=== PATIENT | female | born 1960 | race Caucasian/White ===

== ENCOUNTER 2016-11-02 14:56 | Inpatient (IN) | payer OTHER ==
[2016-11-07] MEDS ORDERED: SENNOSIDES 17.6 MG/10 ML UDL PO PRN (15:01)
[2016-11-07] MEDS ORDERED: MAGNESIUM HYDROXIDE 30 ML UDCUP PO PRN (15:01)
[2016-11-07] MEDS ORDERED: ALTEPLASE 2 MG VIAL IVP PRN (15:01)
[2016-11-07] MEDS ORDERED: ALBUTEROL SULFATE PO SCH (16:00)
[2016-11-07 16:26] LABS: COLOR YELLOW; LEUKOCYTE ESTERASE,URINE TRACE (NEGATIVE); NITRITE,URINE NEGATIVE (NEGATIVE)
[2016-11-07 16:35] LABS: MUCUS TRACE /lpf (NONE-1+)
[2016-11-07] MEDS ORDERED: VANCOMYCIN 750 MG IV SCH (17:00)
[2016-11-07] MEDS: CARVEDILOL 3.125 MG TAB PO SCH (17:17)
[2016-11-07] MEDS: ACETAMINOPHEN 325 MG TAB PO PRN (17:18)
[2016-11-07] MEDS: BACLOFEN 10 MG TAB PO PRN ×2 (17:18→20:51)
--- NOTE | 2016-11-07 17:31 | GHP ---
[f rep st] HISTORY AND PHYSICAL DATE OF ADMISSION: 11/07/2016 TIME OF EVALUATION: 2:30 p.m. REFERRING FACILITY: [facility]. REFERRING PHYSICIAN: Neurology Service DATE OF ONSET: 10/30/2016. CONSULTING PHYSICIANS: Dr. Monk, Infectious Disease. REHABILITATION DIAGNOSIS: Gait dysfunction, activities of daily living dysfunction status post righ t MCA cerebrovascular accident with left hemiparesis, dysphagia. IMPAIRMENT RATING: Group 1.1, left body involvement, right brain. ETIOLOGIC DIAGNOSIS: Right cerebrovascular accident with left hemiparesis. HISTORY OF PRESENT ILLNESS: The patient is a 56-year-old female who presented to [facility] emergency department on 10/30/2016 with acute onset of slurred speech and left upper and left lower extremity weakness. Her , Luis E, who also served as historian today, states that she was prepa ring dinner and stated that she felt funny and went to sit down. He gave her 2 baby aspirin. She p roceeded to develop more pronounced neurological deficit, and therefore, went to the [facility] emergency department where stroke alert was triggered. She had emergent head CT, which showed is chemic right middle CVA infarction, and she was given tPA. The also states that approximate ly several hours after tPA was administered, her speech began to clear, and she noted improvement in left lower, greater than left upper, extremity strength. She had a series of head CTs which showed acute right MCA infarct with some extension following tPA administration into the right periventric ular white matter and posterior aspect of the basal ganglion. There was no hemorrhagic conversion. She was seen by physical and occupational therapy but had not been doing much ambulation. Her husb and noted that she was standing bedside. He also reports that she was continent of bowel and bladde r prior to transfer. She was seen by Speech Therapy and placed on a regular diet. STUDIES AND LABS IN THE HOSPITAL: Initial head CT performed on 10/30 showed mild scattered foci of the white matter with signal abnormality, considered nonspecific but consistent with microvascular i schemia. Restricted diffusion seen along the posterior aspect of the right basal ganglia ( _ globus pallidus extending superiorly into the right periventricular white matter. No hemorrhage. No hydrocephalus. Repeat head CT was performed on 10/31/2016, which showed a similar and stable ap pearance compared to the previous CT. An additional head CT was performed, which showed decreased a ttenuation of white matter cephalad to the right lateral thalamus corresponding to the area of infar ction seen on previous MRI, unchanged from previous head CT. No acute hemorrhage. She also underwent ultrasound of the left arm which showed a focal thrombus in the cephalic vein in the region of the antecubital fossa. The internal jugular, subclavian and axillary veins appeared p atent. Duplex Doppler color flow 2D ultrasound of the left lower extremity was repeated as normal. A repeat head CT showed continued evolution of the infarct with the right cerebral hemisphere exten ding into the posterior right frontal lobe and basal ganglia with increased low attenuation changes seen. Electrocardiogram showed normal left ventricular size, normal systolic function and wall motion with an ejection fraction of 60% to 65%, diastolic function showed reversal consistent with grade 1, mil d tricuspid insufficiency not significant enough to allow estimation of RV and PA systolic pressures . PRECAUTIONS: She is a fall risk secondary to left hemiparesis. ALLERGIES: Cefaclor, cephalexin, doxycycline, metronidazole, penicillin. ADMISSION MEDICATIONS: 1. Lovenox 30 mg b.i.d., nursing to confirm as this was not on the med list that came with the [facility] ent's medical records on transfer. 2. Atorvastatin 40 mg nightly; baclofen 10 mg q.i.d. p.r.n. left lower extremity muscle spasms. 3. Carvedilol 3.125 mg b.i.d. with meals. 4. Lactobacillus 1 capsule orally. 5. Lisinopril 10 mg daily. 6. Miconazole 2% powder use as directed. 7. Pantoprazole 40 mg EC q.a.m. 8. Sodium chloride 0.9% 100 mg with vancomycin 750 recon solution 750 mg IV q.12 hours. 9. Tamsulosin 0.4 mg extended release 24 hours 0.4 mg daily. 10. Cholecalciferol 1000 unit capsules daily. 11. Multivitamins 1 tablet daily. 12. ProAir 90 mcg actuation aerosol powder 180 mcg inhalation q.4 hours. FAMILY HISTORY: Noncontributory. PSYCHOSOCIAL HISTORY: Apparent 20-year history methamphetamine use. REVIEW OF SYSTEMS: GASTROINTESTINAL: Denies constipation or diarrhea. GENITOURINARY: Denies don turia or dysuria. Denies flank pain. CONSTITUTIONAL: Denies chills. Reports intermittent fever. PULMONARY: Intermittent shortness of breath, on O2 per nasal cannula. SKIN: None per patient rep ort, but she has redness around the sacral region. MUSCULOSKELETAL: Denies arthralgia. PSYCHIATRI C: Denies anxiety or depression. PHYSICAL EXAMINATION: GENERAL: Pleasant, slightly overweight female who appears older than stated age. VITAL SIGNS: On admission, blood pressure 161/120, pulse 88 and regular, respirations 19 per minute. HEENT: Pupils equal, round and reactive to light and accommodation. EOMI. Mucous membran es moist. Airway is patent. NECK: Supple. HEART: Regular rate and rhythm. No murmurs, rubs or gallops. No JVD. LUNGS: Clear to auscultation. No E to A changes. ABDOMEN: Nondistended, soft, nontender, normoactive bowel sounds all 4 quadrants. No hepatosplenomegaly. GENITOURINARY: No Fo prabhu catheter present. No suprapubic tenderness. CARDIOVASCULAR: No lower extremity edema. No rig ht or left calf tenderness. NEUROLOGIC: Alert and oriented x3. Cranial nerves 2 through 12 grossl y intact. Left hemiparesis with left upper extremity weakness greater than left lower extremity wea kness. Most pronounced weakness in left lower extremity is left foot drop where she has a slight eq uinovarus deformity. MUSCULOSKELETAL: She limits functional active range of motion in the left gle nohumeral joint. She can flex the elbow functional position with substitution. She is unable to do rsiflex the left hand and fingers. Left ankle can passively be ranged to 0 degrees. SKIN: Warm al l 4 extremities. Erythema is noted without skin breakdown in the lower sacral and sacrococcygeal re gion. No other skin lesions are noted. ASSESSMENT AND PLAN: 1. Right middle cerebral artery cerebrovascular accident with left hemiparesis with left upper extr emity affected more than left lower extremity and distal muscle groups of both left upper and left l ower extremity affected predominantly. She does have significant left shoulder girdle weakness as w ell. Physical and occupational therapy for optimizing and helping return of motor function pertaini ng to left hemiparesis, balance, core strengthening. 2. Dysphagia. The patient is currently apparently tolerating a regular diet. However, Speech Ther apy to screen for more subtle dysphagia and to assess cognitive deficits. 3. Pain control. The patient currently is not in any pain but per Nursing reports, she was in the process of passing a small kidney stone while over at [facility]. Therefore, will put an ord er in for hydromorphone 2 mg q.2 hours p.r.n. pain greater than a 5. 4. DVT prophylaxis. The patient was previously on Lovenox 30 mg b.i.d. This was confirmed per [facility] staff, as it was not on her transfer medications. Will resume this as well as SCDs at night an d knee-high compression stockings during the day. 5. Gastroesophageal reflux disease. Continue Protonix. 6. Hypertension. Continue lisinopril 10 mg. May give an extra 10 mg this evening if her blood pre ssure remains elevated. She is also taking carvedilol 3.125 mg b.i.d. 7. Left lower extremity muscle spasms. Currently taking 10 mg q.i.d. p.r.n. muscle spasms. Ideall y, this should be reserved for spasticity and perhaps she would do better on low-dose Robaxin. 8. Hypercholesterolemia. Continue atorvastatin 40 mg daily. 9. Thrombophlebitis with recent bacteremia associated with a Staph infection IV line. Monitor ante cubital wound left arm. Continue vancomycin 500 mg b.i.d. 10. Type 2 diabetes. Apparently, this is diet controlled. Will check fingersticks q.shift and mon itor hemoglobin A1c. 11. Asthma. ProAir inhaler p.r.n. shortness of breath. Will continue oxygen 2 L per nasal cannula for now. /[id number]/MODL
[2016-11-07] MEDS ORDERED: ALBUTEROL 200 PUFFS/18 GM MDI IH PRN (18:00)
[2016-11-07] MEDS: [UNRECOGNIZED DRUG - OTHER] TP SCH (20:24)
[2016-11-07] MEDS: MICONAZOLE NITRATE TP SCH (20:24)
[2016-11-07] MEDS: ATORVASTATIN CALCIUM 40 MG TAB PO SCH (20:25)
[2016-11-07] MEDS: [UNRECOGNIZED DRUG - OTHER] IH PRN (20:25)
[2016-11-07] MEDS: ENOXAPARIN 30 MG/0.3 ML SYR SC SCH (20:25)
[2016-11-07] MEDS: VANCOMYCIN 750 MG in D5W 150 ML IV SCH (20:26)
[2016-11-07] MEDS: HYDROmorphONE/DILAUDID 2 MG TAB PO PRN (22:09)
[2016-11-08] MEDS: BACLOFEN 10 MG TAB PO PRN ×3 (02:56→21:01)
[2016-11-08 08:22] LABS: % IMMATURE GRANULYOCYTES 0.7 % (0.0-1.1); ABSOLUTE IMMATURE GRANULOCYTES 0.08 10^3/uL (0.00-0.10); ADD DIFF? NO; ADD MORPH? NO; ADD SCAN? NO; ATYPICAL LYMPHOCYTE FLAG 60 (0-99); FRAGMENT RBC FLAG 10 (0-99); HEMATOCRIT 38.5 % (38.0-47.0); HEMOGLOBIN 12.7 g/dL (12.6-16.3); LEFT SHIFT FLG 0 (0-99); LIPEMIA HEMOLYSIS FLAG 80 (0-99); MEAN CELL HEMOGLOBIN 28.7 pg (27.9-34.1); MEAN CELL VOLUME 86.9 fL (81.5-99.8); MEAN PLATELET VOLUME 10.6 fL (8.7-11.7); PLATELET CLUMPS FLAG 10 (0-99); PLATELET COUNT 284 10^3/uL (150-400); RED BLOOD CELL COUNT 4.43 10^6/uL (4.18-5.33)
[2016-11-08 08:33] LABS: ANION GAP 12 mEq/L (8-16); CARBON DIOXIDE 21 mEq/l (22-31); CHLORIDE 107 mEq/L (97-110); GLOMERULAR FILTRATION RATE 57; GLUCOSE 101 mg/dL (70-100); POTASSIUM 4.6 mEq/L (3.5-5.2); SODIUM 140 mEq/L (134-144)
[2016-11-08] MEDS: CARVEDILOL 3.125 MG TAB PO SCH ×2 (08:34→18:11)
[2016-11-08] MEDS: PANTOPRAZOLE SODIUM 40 MG TAB PO SCH (08:35)
[2016-11-08] MEDS: CHOLECALCIFEROL VIT D3 1,000 UNITS TAB PO SCH (08:35)
[2016-11-08] MEDS: ENOXAPARIN 30 MG/0.3 ML SYR SC SCH ×2 (08:35→21:01)
[2016-11-08] MEDS: TAMSULOSIN HCL 0.4 MG CAP PO SCH (08:35)
[2016-11-08] MEDS: LISINOPRIL 10 MG TAB PO SCH (08:35)
[2016-11-08] MEDS: MULTIVITAMINS 1 EACH TAB PO SCH (08:35)
[2016-11-08] MEDS: VANCOMYCIN 750 MG in D5W 150 ML IV SCH ×2 (08:36→21:01)
[2016-11-08] MEDS: MICONAZOLE NITRATE TP SCH ×2 (08:45→21:03)
[2016-11-08] MEDS: [UNRECOGNIZED DRUG - OTHER] TP SCH ×2 (08:45→21:03)
[2016-11-08] MEDS: [UNRECOGNIZED DRUG - OTHER] IH PRN ×2 (08:46→21:02)
[2016-11-08] MEDS: VILANTEROL PO SCH (08:47)
[2016-11-08] MEDS: FLUTICASONE PO SCH (08:47)
[2016-11-08 12:40] LABS: ALANINE AMINOTRANSFERASE 165 IU/L (9-52); ALBUMIN 3.8 g/dL (3.5-5.0); ALKALINE PHOSPHATASE 91 IU/L (38-126); ASPARTATE AMINOTRANSFERASE 168 IU/L (14-46); BILIRUBIN,TOTAL 0.5 mg/dL (0.1-1.4); BILIRUBIN-CONJUGATED 0.4 mg/dL (0.0-0.5); BILIRUBIN-UNCONJUGATED 0.1 mg/dL (0.0-1.1); TOTAL PROTEIN 6.5 g/dL (6.3-8.2)
[2016-11-08] MEDS: FLUTICASONE/SALMETER 250/50MCG DISKUS IH SCH ×2 (12:55→21:03)
--- NOTE | 2016-11-08 13:12 | PDOREHIP ---
Admission [facility] - Admission - 3 Day Assessment Period Admission Date/Day 1: 11/07/16 Day 2: 11/08/16 Day 3: 11/09/16 - Active Diagnoses Comorbidities and Co-existing Conditions at Admission: 79823. None of the Above - Skin Conditions Unhealed Pressure Ulcer (1 or more/Stage 1 or >)-Admission: 0. No
--- NOTE | 2016-11-08 13:16 | SOAPPROG ---
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 * Left hemiparesis and debility status post CVA. Physical and occupational therapies to optimize mobility and activities of daily living. * Secondary prevention of CVA with blood pressure control on carvedilol and lisinopril and lipid control on atorvastatin, and aspirin. * Dysphagia in the hospital which has improved. Speech therapy evaluation and also to address cognition. * Abnormal liver function tests. Possibly due to atorvastatin. Check hepatitis profile. Repeat LFTs in 3 days. * Nephrolithiasis. Continue tamsulosin and pain control. Observing for resolution of symptoms. If still symptomatic after 4 weeks reimaging would be indicated and possible urology consult. * Urinary frequency/nocturia. UTI seems unlikely white blood cells and trace epithelial cells, however she also has leukocytosis with white blood cell count 11.2. Await urine culture. Continue postvoid residual checks by bladder scan, especially overnight. * Hypertension. Blood pressure is above target for secondary prevention of CVA. Continue to monitor. Unclear indication for beta-aureliano. Consider titration of lisinopril and discontinuation of carvedilol. * Septic thrombophlebitis left antecubital fossa. Currently no signs or symptoms of active infection. Continue vancomycin per orders from Infectious Disease. Follow up with Dr. Thaddeus monk, [facility], after discharge. Continue continue CBC q.week on Mondays and CMP with vancomycin trough twice a week on Mondays and . Fax results to Dr. Coburn at . Expect antibiotic duration 4 weeks or more. * Fatigue. Optimize sleep with attention to nocturia as above. 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 * GERD. Continue pantoprazole. * DM2. HgbA1c was 7.3 in the hospital. No indication for medication at present. D/C BS checks. Manager Product Design to advise patient. * Asthma. Continue inhalers. * Prophylaxis. Continue enoxaparin 30 mg subcutaneous twice daily until mobility improves. Continue SCDs and Josse hose. Continue pantoprazole for GI prophylaxis on enoxaparin plus aspirin. Follow-up: PCP Yesenia Menendez after discharge [phone] Victoria early December [address] Thaddeus Monk week of 11/22/[address] Noel Rodrigez for cardiac event monitor after discharge 11/08/16 13:16 Subjective: Feels sleepy. Reports urinary frequency is interfering with sleep at night. She has flank pain with radiation toward her bladder which he thinks is due to kidney stones. She has passed kidney stones in the past. Pain is sharp and intermittent. She denies fevers or chills, she denies dysuria. No cough or dyspnea. Baclofen has been effective for muscle spasms. Spasms are in no left foot and calf and can happen when her lower leg is touched and moved by staff. Objective: Vital Signs Temp Pulse Resp BP Pulse Ox 36.5 C 72 18 140/92 H 91 L 11/08/16 08:00 11/08/16 08:34 11/08/16 08:00 11/08/16 08:35 11/08/16 08:00 Laboratory Results 11/08/16 06:30 11/08/16 06:30 11/07/16 11/08/16 11/09/16 05:59 05:59 05:59 Intake Total 956 360 Output Total 2550 200 Balance -1594 160 Physical Exam - Physical Exam General Appearance: WD/WN, alert, no apparent distress Respiratory: normal breath sounds, No crackles, No rhonchi, No wheezing Cardiac/Chest: regular rate, rhythm, No edema, No diastolic murmur, No systolic murmur Skin: normal color, warm/dry, other (Minimal id on bandage left antecubital region.) Neuro/Psych: alert, normal mood/affect, oriented x 3, motor weakness (Left forearm and hand) ICD10 Worksheet Patient Problems: Problems Problem Status Onset Cerebrovascular accident (CVA) involving right middle cerebral artery territory Acute Left hemiparesis Acute Nephrolithiasis Acute Septic thrombophlebitis of upper extremity Acute - ICD10 Problem Qualifiers (1) Cerebrovascular accident (CVA) involving right middle cerebral artery territory (2) Left hemiparesis (3) Septic thrombophlebitis of upper extremity (4) Nephrolithiasis
[2016-11-08] MEDS: ASPIRIN EC 81 MG TAB PO SCH (13:52)
--- NOTE | 2016-11-08 17:59 | WOCRNPDOC ---
WOCRN Advanced Assessment Note - Skin Integrity Problem, Advanced Assess Left Arm Dressing Type: Mepilex Border Dressing Description: Clean/Dry, Intact Exudate Amount: Scant Exudate Color: Yellow, Green Exudate Characteristic(s): Cloudy, Purulent Integumentary Issue Intervention: Dressing Changed Avel Wound Tissue: Erythema (minimal avel wound to 0.3 cm circumferentially) Avel Wound Swelling: Moderate Wound Bed Color: Medill, Yellow Wound Bed Constitution: Smooth Tissue (20%), Adhered Slough (80%) Wound Edges: Attached Site Odor: None Site Measurement - Head-to-Toe Length X Width X Depth (cm): 0.4x0.4x0.1 Skin Integrity Problem Comment: Left Ac wound. Small area of adhered slough with a partial thickness opening around it. Cannot palpate depth nor is slough able to be dislodged. Cleaned with ns and applied silvasorb to wound bed. Covered with Allevyn life dressing. Wound care will round again next week.
[2016-11-08] MEDS: ATORVASTATIN CALCIUM 40 MG TAB PO SCH (21:01)
[2016-11-08] MEDS: HYDROmorphONE/DILAUDID 2 MG TAB PO PRN (23:56)
[2016-11-09] MEDS: BACLOFEN 10 MG TAB PO PRN ×3 (03:30→23:13)
[2016-11-09] MEDS: CARVEDILOL 3.125 MG TAB PO SCH ×2 (07:38→17:44)
[2016-11-09] MEDS: VANCOMYCIN 750 MG in D5W 150 ML IV SCH ×2 (07:38→20:03)
[2016-11-09] MEDS: MICONAZOLE NITRATE TP SCH ×2 (09:00→21:31)
[2016-11-09] MEDS: [UNRECOGNIZED DRUG - OTHER] TP SCH ×2 (09:00→21:31)
[2016-11-09] MEDS: ENOXAPARIN 30 MG/0.3 ML SYR SC SCH ×2 (09:00→21:18)
[2016-11-09] MEDS: MULTIVITAMINS 1 EACH TAB PO SCH (09:00)
[2016-11-09] MEDS: TAMSULOSIN HCL 0.4 MG CAP PO SCH (09:00)
[2016-11-09] MEDS: FLUTICASONE/SALMETER 250/50MCG DISKUS IH SCH ×2 (09:00→21:31)
[2016-11-09] MEDS ORDERED: NON-FORMULARY NEW DRUG PO SCH (09:00)
[2016-11-09] MEDS: PANTOPRAZOLE SODIUM 40 MG TAB PO SCH (09:00)
[2016-11-09] MEDS: LISINOPRIL 10 MG TAB PO SCH (09:00)
[2016-11-09] MEDS: ASPIRIN EC 81 MG TAB PO SCH (09:00)
[2016-11-09] MEDS: CHOLECALCIFEROL VIT D3 1,000 UNITS TAB PO SCH (09:00)
[2016-11-09] MEDS: FLUTICASONE PO SCH (09:49)
[2016-11-09] MEDS: VILANTEROL PO SCH (09:49)
[2016-11-09] MEDS ORDERED: LISINOPRIL 10 MG TAB PO ONE (13:53)
[2016-11-09] MEDS ORDERED: NON-FORMULARY NEW DRUG PO PRN (15:01)
--- NOTE | 2016-11-09 15:11 | SOAPPROG ---
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 * Left hemiparesis and debility status post CVA. Physical and occupational therapies to optimize mobility and activities of daily living. * Secondary prevention of CVA with blood pressure control on carvedilol and lisinopril and lipid control on atorvastatin, and aspirin. * Dysphagia in the hospital which has improved. Speech therapy evaluation and also to address cognition. * Abnormal liver function tests. Possibly due to atorvastatin. Check hepatitis profile. Repeat LFTs in 3 days. * Nephrolithiasis. Continue tamsulosin and pain control. Observing for resolution of symptoms. If still symptomatic after 4 weeks reimaging would be indicated and possible urology consult. * Urinary frequency/nocturia. Improved last night 11/08 to 11/09/2016. UTI ruled out with culture less than 2000 CFU per mL. * Leukocytosis with white blood cell count 11.2. Unclear etiology. Not due to UTI. Due for recheck next week. * Hypertension. Blood pressure is above target for secondary prevention of CVA. Continue to monitor. Unclear indication for beta-aureliano. Increase lisinopril from 10 mg q.day to 20 mg q.day starting 11/09/2016. * Septic thrombophlebitis left antecubital fossa. Currently no signs or symptoms of active infection. Continue vancomycin per orders from Infectious Disease. Follow up with Dr. Thaddeus monk, [facility], after discharge. Continue continue CBC q.week on Mondays and CMP with vancomycin trough twice a week on Mondays and . Fax results to Dr. Coburn at [phone]. Expect antibiotic duration 4 weeks or more. * Fatigue. Optimize sleep with attention to nocturia as above. 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 * GERD. Continue pantoprazole. * DM2. HgbA1c was 7.3 in the hospital. No indication for medication at present. D/C BS checks. Oracle Financial Application Developer to advise patient. * Asthma. Continue inhalers. * Prophylaxis. Continue enoxaparin 30 mg subcutaneous twice daily until mobility improves. Continue SCDs and Josse hose. Continue pantoprazole for GI prophylaxis on enoxaparin plus aspirin. Follow-up: PCP Yesenia Czartolomna after discharge [phone] Victoria early December [address] Thaddeus Monk week of 11/22/[address] Noel Rodrigez for cardiac event monitor after discharge [phone] 11/09/16 15:06 Subjective: Feels sleepy today. Says she became sleepy especially after her morning dose of vancomycin. She is participating in therapies however. She complains of a scratchy throat and a cough and asks if she can use her usual home "[employer]." She says she usually gets allergy shots from college advisor and is overdue for them this year. Objective: Vital Signs Temp Pulse Resp BP Pulse Ox 36.5 C 88 17 146/98 H 92 11/09/16 07:50 11/09/16 07:50 11/09/16 07:50 11/09/16 14:57 11/09/16 07:50 Laboratory Results 11/08/16 06:30 11/08/16 06:30 11/08/16 11/09/16 11/10/16 05:59 05:59 05:59 Intake Total 956 1250 300 Output Total 2550 1503 844 Eitnjnr -0367 -231 -250 Physical Exam - Physical Exam General Appearance: WD/WN, alert, no apparent distress Respiratory: normal breath sounds, No crackles, No rhonchi, No wheezing Skin: normal color, warm/dry Neuro/Psych: alert, normal mood/affect, oriented x 3, motor weakness (LUE > LLE) ICD10 Worksheet Patient Problems: Problems Problem Status Onset Cerebrovascular accident (CVA) involving right middle cerebral artery territory Acute Left hemiparesis Acute Nephrolithiasis Acute Septic thrombophlebitis of upper extremity Acute - ICD10 Problem Qualifiers (1) Cerebrovascular accident (CVA) involving right middle cerebral artery territory (2) Left hemiparesis (3) Septic thrombophlebitis of upper extremity (4) Nephrolithiasis
[2016-11-09] MEDS ORDERED: TUSSIN DM PO PRN (15:37)
[2016-11-09] MEDS ORDERED: FLUTICASONE NASAL 120 SPRAYS/16 GM MDI EACHNARE SCH (15:45)
[2016-11-09] MEDS: TUSSIN DM PO PRN (17:47)
[2016-11-09] MEDS: ATORVASTATIN CALCIUM 40 MG TAB PO SCH (21:18)
[2016-11-10] MEDS: ACETAMINOPHEN 325 MG TAB PO PRN (04:23)
[2016-11-10] MEDS: VANCOMYCIN 750 MG in D5W 150 ML IV SCH ×2 (07:52→20:13)
[2016-11-10] MEDS: FLUTICASONE/SALMETER 250/50MCG DISKUS IH SCH ×2 (08:06→21:02)
[2016-11-10] MEDS: ENOXAPARIN 30 MG/0.3 ML SYR SC SCH ×2 (08:09→20:50)
[2016-11-10] MEDS: CARVEDILOL 3.125 MG TAB PO SCH ×2 (08:12→17:57)
[2016-11-10] MEDS: ASPIRIN EC 81 MG TAB PO SCH (08:13)
[2016-11-10] MEDS: FLUTICASONE NASAL 120 SPRAYS/16 GM MDI EACHNARE SCH (08:13)
[2016-11-10] MEDS: CHOLECALCIFEROL VIT D3 1,000 UNITS TAB PO SCH (08:13)
[2016-11-10] MEDS: MICONAZOLE NITRATE TP SCH ×2 (08:14→21:03)
[2016-11-10] MEDS: LISINOPRIL 10 MG TAB PO SCH (08:14)
[2016-11-10] MEDS: [UNRECOGNIZED DRUG - OTHER] TP SCH ×2 (08:14→21:03)
[2016-11-10] MEDS: MULTIVITAMINS 1 EACH TAB PO SCH (08:14)
[2016-11-10] MEDS: PANTOPRAZOLE SODIUM 40 MG TAB PO SCH ×2 (08:15→08:17)
[2016-11-10] MEDS: TAMSULOSIN HCL 0.4 MG CAP PO SCH (08:16)
[2016-11-10] MEDS: BACLOFEN 10 MG TAB PO PRN ×3 (08:17→23:51)
--- NOTE | 2016-11-10 10:40 | SOAPPROG ---
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 * Left hemiparesis and debility status post CVA. Initial functional independence measure 69 on 11/10/2016. 8 feet at the rail with 2 person assist. She requires moderate assistance for bed mobility. She transfers with minimal assist, but is a 2 person assist per nursing especially at night. She is having some return of movement at the left lower extremity but tends to have ankle inversion and may benefit from a brace. Upper extremity dressing requires setup and supervision; lower body dressing is done with moderate assistance. Continue physical and occupational therapies to optimize mobility and activities of daily living. * Dysphagia in the hospital which has improved. Continue speech therapy. Advanced to regular diet with thin liquids. * Cognition. Mild to moderate deficits to attention problem solving and reasoning. Continue speech therapy. * Insomnia and daytime fatigue. Complicated by nocturia and cough. Will address cough and urinary issues before considering initiating a hypnotic. * Urinary frequency/nocturia. Improved last night 11/08 to 11/09/2016. UTI ruled out with culture less than 2000 CFU per mL. * Asthma/allergies/cough. Contributing 2 sleep disturbance. Discussed with her novelty printing machine operator, Dr. Almanza. She was receiving monthly immunotherapy injections for seasonal allergies. She also was on Breo which is equivalent to current Advair, albuterol which she has on a p.r.n. basis, nasal fluticasone which is currently ordered, and an [id number] antihistamine. Will add cetirizine. * Hypertension. Blood pressure is above target for secondary prevention of CVA. Continue to monitor. Unclear indication for beta-aureliano. Increase lisinopril from 10 mg q.day to 20 mg q.day starting 11/09/2016. * Nephrolithiasis. Continue tamsulosin and pain control. Symptoms seem to have resolved. If still symptomatic after 4 weeks reimaging would be indicated and possible urology consult. * Abnormal liver function tests. Possibly due to atorvastatin. Check hepatitis profile. Repeat LFTs in 3 days. * Leukocytosis with white blood cell count 11.2. Unclear etiology. Not due to UTI. Due for recheck next week. * Septic thrombophlebitis left antecubital fossa. Currently no signs or symptoms of active infection. Continue vancomycin per orders from Infectious Disease. Follow up with Dr. Thaddeus monk, [facility], after discharge. Continue continue CBC q.week on Mondays and CMP with vancomycin trough twice a week on Mondays and . Fax results to Dr. Coburn at [phone]. Expect antibiotic duration 4 weeks or more. * Fatigue. Optimize sleep with attention to nocturia as above. 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 Chronic/stable conditions: * Secondary prevention of CVA with blood pressure control on carvedilol and lisinopril and lipid control on atorvastatin, and aspirin. * GERD. Continue pantoprazole. * DM2. HgbA1c was 7.3 in the hospital. No indication for medication at present. D/C BS checks. Wheel Tuner to advise patient. * Prophylaxis. Continue enoxaparin 30 mg subcutaneous twice daily until mobility improves. Continue SCDs and Josse hose. Continue pantoprazole for GI prophylaxis on enoxaparin plus aspirin. Attended staffing, 15 minutes. Discussed with case management, nursing, dietitian, PT, OT, AIRPLANE CABIN ATTENDANT. Patient and her are both living on disability; they sleep in separate rooms. She has been in the basement but she can move to the main level. Discharge date set for 12/01/2016. Follow-up: PCP Yesenia Menendez after discharge [phone] Victoria early December [address] Thaddeus Monk week of 11/22/[address] Noel Rodrigez for cardiac event monitor after discharge 11/10/16 12:16 Subjective: C/O poor sleep last night. Awakened frequently dannie to cough and frequent urination. Says she has an OTC allergy pill. Reports again that she is overdue for "allergy shot" per Dr. Torres. Reports urinary frequency is similar to her experience at home prior to stroke. Also reports L hip/groin pain. Most comfortable with L hip flexed. Reports resolution of flank pain and radiating pain to groin she attributed to kidney stone. Objective: Vital Signs Temp Pulse Resp BP Pulse Ox 36.6 C 80 18 144/95 H 94 11/10/16 07:51 11/10/16 08:12 11/10/16 07:51 11/10/16 08:14 11/10/16 07:51 Microbiology 11/07/16 16:47 Urine Culture - Final Urine,Clean Catch Gram Negative Guillermo Laboratory Results 11/08/16 06:30 11/08/16 06:30 11/09/16 11/10/16 11/11/16 05:59 05:59 05:59 Intake Total 1250 2190 500 Output Total 1999 1999 Balance -750 190 500 - Time Spent With Patient Time Spent With Patient: Greater than 35 minutes floor time today, including more than 50% of time in coordination of care during staffing meeting, and counseling patient. Physical Exam - Physical Exam General Appearance: WD/WN, alert, no apparent distress Respiratory: normal breath sounds, No crackles, No rhonchi, No wheezing Cardiac/Chest: regular rate, rhythm, No edema Extremities: other (Tender over L greater trochanter and L groin) Neuro/Psych: alert, normal mood/affect, oriented x 3, motor weakness (LUE > LLE) ICD10 Worksheet Patient Problems: Problems Problem Status Onset Cerebrovascular accident (CVA) involving right middle cerebral artery territory Acute Left hemiparesis Acute Nephrolithiasis Acute Septic thrombophlebitis of upper extremity Acute - ICD10 Problem Qualifiers (1) Cerebrovascular accident (CVA) involving right middle cerebral artery territory (2) Left hemiparesis (3) Septic thrombophlebitis of upper extremity (4) Nephrolithiasis
[2016-11-10] MEDS: CETIRIZINE 10 MG TAB PO SCH (13:30)
[2016-11-10] MEDS: TUSSIN DM PO PRN (20:50)
[2016-11-10] MEDS: ATORVASTATIN CALCIUM 40 MG TAB PO SCH (20:51)
[2016-11-11 07:52] LABS: ALANINE AMINOTRANSFERASE 109 IU/L (9-52); ALBUMIN 3.5 g/dL (3.5-5.0); ALKALINE PHOSPHATASE 63 IU/L (38-126); ANION GAP 13 mEq/L (8-16); ASPARTATE AMINOTRANSFERASE 43 IU/L (14-46); BILIRUBIN,TOTAL 0.4 mg/dL (0.1-1.4); CALCIUM 9.8 mg/dL (8.5-10.4); CARBON DIOXIDE 22 mEq/l (22-31); CHLORIDE 105 mEq/L (97-110); CREATININE 1.4 mg/dL (0.6-1.0); GLOMERULAR FILTRATION RATE 39; GLUCOSE 134 mg/dL (70-100); POTASSIUM 4.5 mEq/L (3.5-5.2); SODIUM 140 mEq/L (134-144); TOTAL PROTEIN 6.1 g/dL (6.3-8.2)
[2016-11-11] MEDS: ASPIRIN EC 81 MG TAB PO SCH (08:19)
[2016-11-11] MEDS: TAMSULOSIN HCL 0.4 MG CAP PO SCH (08:19)
[2016-11-11] MEDS: PANTOPRAZOLE SODIUM 40 MG TAB PO SCH ×2 (08:19→09:08)
[2016-11-11] MEDS: MULTIVITAMINS 1 EACH TAB PO SCH (08:21)
[2016-11-11] MEDS: CHOLECALCIFEROL VIT D3 1,000 UNITS TAB PO SCH (08:21)
[2016-11-11] MEDS: LISINOPRIL 10 MG TAB PO SCH (08:25)
[2016-11-11] MEDS: CARVEDILOL 3.125 MG TAB PO SCH ×2 (08:26→17:00)
[2016-11-11] MEDS: ENOXAPARIN 30 MG/0.3 ML SYR SC SCH ×2 (08:27→20:19)
[2016-11-11] MEDS: MICONAZOLE NITRATE TP SCH ×2 (08:28→20:19)
[2016-11-11] MEDS: [UNRECOGNIZED DRUG - OTHER] TP SCH ×2 (08:28→20:19)
[2016-11-11] MEDS: FLUTICASONE/SALMETER 250/50MCG DISKUS IH SCH ×2 (08:31→20:20)
[2016-11-11] MEDS: FLUTICASONE NASAL 120 SPRAYS/16 GM MDI EACHNARE SCH (08:31)
[2016-11-11] MEDS: VANCOMYCIN 750 MG in D5W 150 ML IV SCH (08:46)
[2016-11-11] MEDS ORDERED: Herbals/Supplements -Info Only PO SCH (09:00)
[2016-11-11] MEDS: CETIRIZINE 10 MG TAB PO SCH (09:08)
--- NOTE | 2016-11-11 12:56 | SOAPPROG ---
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 * Left hemiparesis and debility status post CVA. Initial functional independence measure 69 on 11/10/2016. Walked 8 feet at the rail with 2 person assist. She requires moderate assistance for bed mobility. She transfers with minimal assist, but is a 2 person assist per nursing especially at night. She is having some return of movement at the left lower extremity but tends to have ankle inversion and may benefit from a brace. Upper extremity dressing requires setup and supervision; lower body dressing is done with moderate assistance. Continue physical and occupational therapies to optimize mobility and activities of daily living. * Dysphagia in the hospital which has improved. Continue speech therapy. Advanced to regular diet with thin liquids. * Cognition. Mild to moderate deficits to attention problem solving and reasoning. Continue speech therapy. * Acute renal insufficiency. D/W ID Dr. Rubio. Advise stopping vancomycin and rechecking labs tomorrow 11/12/16. Will hydrate IV though she does not seen dehydrated; however BUN/CR > 20. * Insomnia and daytime fatigue. Complicated by nocturia and cough. Trial of low-dose oxybutynin 5 mg at HS starting 11/11/16. Continue guaifenesin/DM PRN. * Urinary frequency/nocturia. Persisting. Trial oxybutynin at HS. UTI ruled out with culture less than 2000 CFU per mL. * Asthma/allergies/cough. Contributing to sleep disturbance. Discussed with her bonded strand operator, Dr. Almanza. She was receiving monthly immunotherapy injections for seasonal allergies. She also was on Breo which is equivalent to current Advair, albuterol which she has on a p.r.n. basis, nasal fluticasone which is currently ordered, and an [id number]-[id number] antihistamine. Will add cetirizine. * Hypertension. Blood pressure is above target for secondary prevention of CVA. Continue to monitor. Unclear indication for beta-aureliano. Increase lisinopril from 10 mg q.day to 20 mg q.day starting 11/09/2016. * Nephrolithiasis. Continue tamsulosin and pain control. Symptoms seem to have resolved. Consider renal US chela re GRETCHEN. Will not D/C tamsulosin at present dannie to initiation of oxybutynin to better evaluate effect of oxybutynin. * Abnormal liver function tests. Possibly due to atorvastatin. Hepatitis profile negative. LFTs improving on labs 11/11/2016.. * Leukocytosis with white blood cell count 11.2. Unclear etiology. Not due to UTI. Due for recheck 11/15/16. * Septic thrombophlebitis left antecubital fossa. Currently no signs or symptoms of active infection. D/W Dr. Rubio, ID. Changing care to [place] [facility] service from [facility]. No need for follow-up visit, which would have been difficult due to current requirement of 2 person assist for transfers. Holding of vancomycin due to acute kidney injury. * Fatigue. Optimize sleep with attention to nocturia as above. 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 Chronic/stable conditions: * Secondary prevention of CVA with blood pressure control on carvedilol and lisinopril and lipid control on atorvastatin, and aspirin. * GERD. Continue pantoprazole. * DM2. HgbA1c was 7.3 in the hospital. No indication for medication at present. D/C BS checks. Professor Of Forest Planning to advise patient. * Prophylaxis. Continue enoxaparin 30 mg subcutaneous twice daily until mobility improves. Continue SCDs and Josse hose. Continue pantoprazole for GI prophylaxis on enoxaparin plus aspirin. Patient and her are both living on disability; they sleep in separate rooms. She has been in the basement but she can move to the main level. Discharge date set for 12/01/2016. Follow-up: PCP Yesenia Menendez after discharge [phone] Victoria early December [address] Noel Rodrigez for cardiac event monitor after discharge [phone] 11/11/16 14:14 Subjective: Poor sleep again last night. Sleep was interrupted by frequent urination. Denies flank pain abdominal pain or pelvic pain. No fevers or chills. Continues to have intermittent dry cough, which she attributes to the smell of the alcohol hand basin cleaner. No dyspnea. She reports sensitivity to frequency is related to history of chemical exposure and related lung disease. Otherwise no complaints. Objective: Vital Signs Temp Pulse Resp BP Pulse Ox 36.4 C 84 16 124/70 H 92 11/11/16 06:00 11/11/16 08:26 11/11/16 06:00 11/11/16 08:26 11/11/16 06:00 Laboratory Results 11/08/16 06:30 11/11/16 06:30 11/10/16 11/11/16 11/12/16 05:59 05:59 05:59 Intake Total 2190 1840 340 Output Total 1999 8418 575 Balance 190 290 -235 - Time Spent With Patient Time Spent With Patient: Greater than 35 minutes 4 times a day including coordination of care in discussions with pharmacist and with Infectious Disease physician Dr. Rubio. Physical Exam - Physical Exam General Appearance: WD/WN, alert, no apparent distress Respiratory: normal breath sounds, No crackles, No rhonchi, No wheezing Cardiac/Chest: regular rate, rhythm, No edema, No JVD Extremities: No swelling Neuro/Psych: alert, normal mood/affect, oriented x 3, motor weakness (LUE & LLE) ICD10 Worksheet Patient Problems: Problems Problem Status Onset Cerebrovascular accident (CVA) involving right middle cerebral artery territory Acute Left hemiparesis Acute Septic thrombophlebitis of upper extremity Acute Nephrolithiasis Acute - ICD10 Problem Qualifiers (1) Cerebrovascular accident (CVA) involving right middle cerebral artery territory (2) Left hemiparesis (3) Septic thrombophlebitis of upper extremity (4) Nephrolithiasis
[2016-11-11] MEDS ORDERED: NS 1,000 ML IV SCH (14:15)
[2016-11-11] MEDS: BACLOFEN 10 MG TAB PO PRN ×2 (17:00→22:54)
[2016-11-11] MEDS: ATORVASTATIN CALCIUM 40 MG TAB PO SCH (20:20)
[2016-11-11] MEDS ORDERED: OXYBUTYNIN CHLORIDE 5 MG TAB PO SCH (21:00)
[2016-11-11] MEDS: TUSSIN DM PO PRN (22:54)
[2016-11-12] MEDS: ACETAMINOPHEN 325 MG TAB PO PRN ×2 (00:29→08:24)
[2016-11-12] MEDS ORDERED: VANCOMYCIN 750 MG in D5W 150 ML IV SCH (08:00)
[2016-11-12] MEDS: CARVEDILOL 3.125 MG TAB PO SCH ×2 (08:17→18:42)
[2016-11-12] MEDS: ASPIRIN EC 81 MG TAB PO SCH (08:17)
[2016-11-12] MEDS: CETIRIZINE 10 MG TAB PO SCH (08:20)
[2016-11-12] MEDS: FLUTICASONE NASAL 120 SPRAYS/16 GM MDI EACHNARE SCH (08:21)
[2016-11-12] MEDS: ENOXAPARIN 30 MG/0.3 ML SYR SC SCH ×2 (08:21→20:31)
[2016-11-12] MEDS: CHOLECALCIFEROL VIT D3 1,000 UNITS TAB PO SCH (08:21)
[2016-11-12] MEDS: LISINOPRIL 10 MG TAB PO SCH (08:22)
[2016-11-12] MEDS: FLUTICASONE/SALMETER 250/50MCG DISKUS IH SCH ×2 (08:22→20:31)
[2016-11-12] MEDS: MULTIVITAMINS 1 EACH TAB PO SCH (08:23)
[2016-11-12] MEDS: MICONAZOLE NITRATE TP SCH ×2 (08:23→20:32)
[2016-11-12] MEDS: [UNRECOGNIZED DRUG - OTHER] TP SCH ×2 (08:23→20:32)
[2016-11-12] MEDS: TAMSULOSIN HCL 0.4 MG CAP PO SCH (08:24)
[2016-11-12] MEDS: PANTOPRAZOLE SODIUM 40 MG TAB PO SCH (08:24)
[2016-11-12] MEDS: BACLOFEN 10 MG TAB PO PRN ×3 (08:25→22:50)
[2016-11-12 08:27] LABS: ANION GAP 12 mEq/L (8-16); CALCIUM 8.5 mg/dL (8.5-10.4); CARBON DIOXIDE 19 mEq/l (22-31); CHLORIDE 110 mEq/L (97-110); CREATININE 1.4 mg/dL (0.6-1.0); GLOMERULAR FILTRATION RATE 39; GLUCOSE 119 mg/dL (70-100); SODIUM 141 mEq/L (134-144)
--- NOTE | 2016-11-12 10:14 | SOAPPROG ---
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 * Left hemiparesis and debility status post CVA. Initial functional independence measure 69 on 11/10/2016. Walked 8 feet at the rail with 2 person assist. She requires moderate assistance for bed mobility. She transfers with minimal assist, but is a 2 person assist per nursing especially at night. She is having some return of movement at the left lower extremity but tends to have ankle inversion and may benefit from a brace. Upper extremity dressing requires setup and supervision; lower body dressing is done with moderate assistance. Continue physical and occupational therapies to optimize mobility and activities of daily living. * Cognition. Mild to moderate deficits to attention problem solving and reasoning. Continue speech therapy. * Acute renal insufficiency. D/W ID Dr. Rubio. Vancomycin stopped after AM dose 11/11/16. Labs unchanged 11/12/16 despite 500 cc NS by IV yesterday . Get retroperitoneal ultrasound today to r/o obstruction. * Nephrolithiasis. Continue tamsulosin and pain control. Symptoms seem to have resolved. Consider renal US chela re GRETCHEN. Will not D/C tamsulosin at present dannie to initiation of oxybutynin to better evaluate effect of oxybutynin. Retroperitoneal ultrasound today 11/12/2016. * Urinary frequency/nocturia. Persisting. Trial oxybutynin at HS 11/11/16; may not have been effective due to IV hydration. Increase dose tonight 11/12/2016. UTI ruled out with culture less than 2000 CFU per mL on 11/07/16. Repeat urinalysis today 11/12/2016. * Insomnia and daytime fatigue. Complicated by nocturia and cough. Trial of low-dose oxybutynin 5 mg at HS starting 11/11/16. Continue guaifenesin/DM PRN. * Pain at PICC site. Does not appear infected but will check CBC. * Hypertension. Adequate control. Unclear indication for beta-aureliano. Increased lisinopril from 10 mg q.day to 20 mg q.day starting 11/09/2016. * Leukocytosis with white blood cell count 11.2. Unclear etiology. Not due to UTI. Recheck 11/12/16. * Septic thrombophlebitis left antecubital fossa. Currently no signs or symptoms of active infection. D/W Dr. Rubio, ID. Changing care to [place] [facility] service from [facility]. Holding of vancomycin due to acute kidney injury. ID to manage. Chronic/stable conditions: * Abnormal liver function tests. Possibly due to atorvastatin. Hepatitis profile negative. LFTs improving on labs 11/11/2016. * Asthma/allergies/cough. Contributing to sleep disturbance. Discussed with her auto air conditioning mechanic, Dr. Almanza. She was receiving monthly immunotherapy injections for seasonal allergies. She also was on Breo which is equivalent to current Advair, albuterol which she has on a p.r.n. basis, nasal fluticasone which is currently ordered, and an kjgw-uuz-bjsscii antihistamine. Improved with addition of cetirizine 11/10/2016. * Dysphagia in the hospital which has improved. Continue speech therapy. Advanced to regular diet with thin liquids. * Secondary prevention of CVA with blood pressure control on carvedilol and lisinopril and lipid control on atorvastatin, and aspirin. * GERD. Continue pantoprazole. * DM2. HgbA1c was 7.3 in the hospital. No indication for medication at present. D/C BS checks. Paint Roller [employer]inder to advise patient. * Prophylaxis. Continue enoxaparin 30 mg subcutaneous twice daily until mobility improves. Continue SCDs and Josse hose. Continue pantoprazole for GI prophylaxis on enoxaparin plus aspirin. Patient and her are both living on disability; they sleep in separate rooms. She has been in the basement but she can move to the main level. Discharge date set for 12/01/2016. Follow-up: PCP Yesenia Menendez after discharge [phone] Victoria early December [address] Noel Rodrigez for cardiac event monitor after discharge 11/12/16 09:48 Subjective: Complains of pain at the PICC line insertion site on her right arm. Had frequent urination again last night nursing documents volumes of up to 400 cc with negligible postvoid residual. Otherwise without complaints. No fevers, chills, cough, dyspnea. No flank pain or abdominal pain or groin pain. Objective: Vital Signs Temp Pulse Resp BP Pulse Ox 36.6 C 80 18 120/80 94 11/12/16 06:04 11/12/16 08:17 11/12/16 06:04 11/12/16 08:22 11/12/16 06:04 Laboratory Results 11/08/16 06:30 11/12/16 06:30 11/11/16 11/12/16 11/13/16 05:59 05:59 05:59 Intake Total 1840 1580 Output Total 1550 6415 Balance 290 -1745 Physical Exam - Physical Exam General Appearance: WD/WN, alert, no apparent distress Respiratory: No respiratory distress, No accessory muscle use Cardiac/Chest: edema (trace pretibial B LE) Skin: normal color, warm/dry, other (No erythema or swelling at PICC line site. Insertion site is tender.) Lymphatic: other (No tenderness or palpable cord medial upper right arm or axilla) Neuro/Psych: alert, normal mood/affect, oriented x 3, motor weakness (RUE and LUE) ICD10 Worksheet Patient Problems: Problems Problem Status Onset Cerebrovascular accident (CVA) involving right middle cerebral artery territory Acute Left hemiparesis Acute Nephrolithiasis Acute Septic thrombophlebitis of upper extremity Acute - ICD10 Problem Qualifiers (1) Cerebrovascular accident (CVA) involving right middle cerebral artery territory (2) Left hemiparesis (3) Septic thrombophlebitis of upper extremity (4) Nephrolithiasis
[2016-11-12 12:06] LABS: % IMMATURE GRANULYOCYTES 1.5 % (0.0-1.1); ABSOLUTE IMMATURE GRANULOCYTES 0.21 10^3/uL (0.00-0.10); ADD DIFF? NO; ADD MORPH? NO; ADD SCAN? NO; ATYPICAL LYMPHOCYTE FLAG 10 (0-99); FRAGMENT RBC FLAG 0 (0-99); HEMATOCRIT 36.4 % (38.0-47.0); HEMOGLOBIN 11.8 g/dL (12.6-16.3); LEFT SHIFT FLG 0 (0-99); LIPEMIA HEMOLYSIS FLAG 80 (0-99); MEAN CELL HEMOGLOBIN 28.7 pg (27.9-34.1); MEAN CELL HEMOGLOBIN CONCENTR. 32.4 g/dL (32.4-36.7); MEAN CELL VOLUME 88.6 fL (81.5-99.8); MEAN PLATELET VOLUME 10.3 fL (8.7-11.7); PLATELET CLUMPS FLAG 0 (0-99); PLATELET COUNT 339 10^3/uL (150-400); RED BLOOD CELL COUNT 4.11 10^6/uL (4.18-5.33); RED CELL DISTRIBUTION WIDTH 13.4 % (11.5-15.2)
[2016-11-12] MEDS ORDERED: ceFAZolin 2 GM/DEXTROSE 100 ML IV SCH (16:30)
[2016-11-12 18:20] LABS: COLOR YELLOW; LEUKOCYTE ESTERASE,URINE NEGATIVE (NEGATIVE); NITRITE,URINE NEGATIVE (NEGATIVE)
--- NOTE | 2016-11-12 18:57 | GCON ---
[f rep st] CONSULTATION INFECTIOUS DISEASE CONSULTATION. DATE OF CONSULTATION: 11/12/2016 PHYSICIAN REQUESTING CONSULTATION: Jay Deng MD REASON FOR CONSULTATION: Management of MSSA bacteremia and superficial septic thrombophlebitis, left antecubital with increasing creatinine. HISTORY OF PRESENT ILLNESS: A 56-year-old woman who presented to [facility] Emergency Room 10/30/2016 with acute onset of slurred speech and left upper extremity weakness and found to have a right MCA infarction. Her hospitalization was complicated by superficial septic thrombophlebitis of the cephalic vein associated with MSSA bacteremia. Patient had positive blood cultures on 11/02, 2 sets, and subsequent blood cultures on 11/04 were negative. Patient carried a diagnosis of allergies to penicillin and cephalosporin both giving a rash, and patient was started initially on clindamycin when only thrombophlebitis and cellulitis were obvious but subsequently changed to IV vancomycin 500 mg IV q.12 with a goal trough between 15 and 20. Patient was subsequently transferred to [facility] and IV vancomycin was continued with initial trough on the of 10.9, with a followup trough on 11/11 of 19.5 with associated creatinine of 1.4. Patient also underwent an abdominal pelvis ultrasound today which showed no hydronephrosis but possible presence of calculi. Infectious Disease is consulted to assess appropriate IV antibiotic therapy and management of vancomycin renal toxicity. PAST MEDICAL HISTORY: Gastroesophageal reflux disease, hypertension, hyperlipidemia, type 2 diabetes, and asthma. ALLERGIES: Penicillin and cephalosporins cause a rash. MEDICATIONS: Tylenol, Lipitor, baclofen, Coreg, Zyrtec, vitamin D, Lovenox, Flonase, Dilaudid, lisinopril 20 mg daily. Milk of magnesia as needed. Oxybutynin 10 mg at bedtime, Protonix 40 mg daily, Advair 1 puff twice daily, senna and Flomax 0.4 mg daily. SOCIAL HISTORY: Patient has a remote history of methamphetamine use. She is . She is on disability. She is a former smoker. No alcohol. FAMILY HISTORY: Reviewed and noncontributory. REVIEW OF SYSTEMS: A complete 10-point review of systems was performed and is negative except as mentioned in the HPI. PHYSICAL EXAMINATION: VITAL SIGNS: Blood pressure is 125/70, heart rate 73, respiratory rate 16, saturation 94% on room air, temperature 36.6. GENERAL: This is a pleasant woman who appears older than her stated age, sitting up in a chair. No acute distress. HEENT: Pupils are reactive bilaterally. Oropharynx : She has dentures above and a few remaining teeth below. Moist mucous membranes. No oral ulcerations or exudate. NECK: Supple. No lymphadenopathy. CARDIOVASCULAR: Regular rate and rhythm with a 2/6 systolic murmur. CHEST: Clear to auscultation bilaterally. ABDOMEN: Soft, nontender. EXTREMITIES: No clubbing, cyanosis, or edema. Her left upper extremity she had an obvious palpable thrombosed cephalic vein in her antecubital region with no expressible purulence. No surrounding erythema. Minimal tenderness to palpation. Right upper extremity patient had her PICC line in place. The insertion site appeared okay but it was very tender to palpation. Arm appeared to be mildly swollen relative to the left. NEUROLOGIC: She had an obvious left hemiparesis most prominent in her upper extremities. LABORATORY DATA: Creatinine 1.4. AST 43, ALT 109, total protein 6.1, Vanco trough this morning is 9.8. Hepatitis serologies were negative. White count 14.1, hematocrit 36, platelets of 339. No blood cultures were collected here but urine was sent for culture which is growing 2000 CFU gram-negative rods. Transthoracic echocardiogram performed at an outside hospital showed no evidence of endocarditis and only showed mild tricuspid insufficiency. ASSESSMENT AND PLAN: This is a 56-year-old woman who recently developed an acute right MCA CVA. Her course was complicated by a superficial septic thrombophlebitis with associated MSSA bacteremia with negative blood cultures since November 04. During her course of therapy, she has had increasing vancomycin troughs and an increasing creatinine. Reviewed patient's antibiotic allergies and she did not have anaphylaxis to either penicillin or cephalosporins. 1. MSSA bacteremia and superficial septic thrombophlebitis with resolution of cellulitis on exam today. 2. Right arm swelling, concern with DVT associated with PICC line. 3. Elevated Cr due to vancomycin toxicity 4. Leukocytosis - no new localizing symptoms RECOMMENDATIONS: 1. We obtain a right upper extremity ultrasound. 2. After clarification of allergies, patient is willing to try cephalosporins again; therefore, based on creatinine clearance in the 40s, would dose patient Ancef 2 g IV q.12. 3. Plan IV antibiotics through 12/01/16 4. Discontinue vancomycin 5. Monitor serial Cr Thank you for this consultation. We will continue to follow on a daily basis. /[id number]/MODL MTDD
[2016-11-12] MEDS: ATORVASTATIN CALCIUM 40 MG TAB PO SCH (20:31)
[2016-11-12] MEDS: OXYBUTYNIN CHLORIDE 5 MG TAB PO SCH (20:31)
[2016-11-12] MEDS: TUSSIN DM PO PRN (22:50)
[2016-11-13] MEDS: BACLOFEN 10 MG TAB PO PRN ×3 (06:47→20:49)
[2016-11-13] MEDS ORDERED: ceFAZolin 2 GM/DEXTROSE 100 ML IV SCH (09:00)
[2016-11-13] MEDS: ceFAZolin 2 GM/DEXTROSE 100 ML IV SCH ×2 (09:44→20:37)
[2016-11-13] MEDS: FLUTICASONE NASAL 120 SPRAYS/16 GM MDI EACHNARE SCH (09:50)
[2016-11-13] MEDS: FLUTICASONE/SALMETER 250/50MCG DISKUS IH SCH ×2 (09:51→20:38)
[2016-11-13] MEDS: ACETAMINOPHEN 325 MG TAB PO PRN ×2 (09:51→14:42)
[2016-11-13] MEDS: ASPIRIN EC 81 MG TAB PO SCH (09:52)
[2016-11-13] MEDS: CARVEDILOL 3.125 MG TAB PO SCH ×2 (09:53→17:37)
[2016-11-13] MEDS: ENOXAPARIN 30 MG/0.3 ML SYR SC SCH ×2 (09:54→20:38)
[2016-11-13] MEDS: LISINOPRIL 10 MG TAB PO SCH (09:54)
[2016-11-13] MEDS: CETIRIZINE 10 MG TAB PO SCH (09:54)
[2016-11-13] MEDS: CHOLECALCIFEROL VIT D3 1,000 UNITS TAB PO SCH (09:54)
[2016-11-13] MEDS: PANTOPRAZOLE SODIUM 40 MG TAB PO SCH (09:56)
[2016-11-13] MEDS: TAMSULOSIN HCL 0.4 MG CAP PO SCH (09:56)
[2016-11-13] MEDS: MULTIVITAMINS 1 EACH TAB PO SCH (09:56)
[2016-11-13] MEDS: [UNRECOGNIZED DRUG - OTHER] TP SCH ×2 (09:58→20:38)
[2016-11-13] MEDS: MICONAZOLE NITRATE TP SCH ×2 (09:58→20:38)
[2016-11-13 10:31] LABS: ANION GAP 14 mEq/L (8-16); CALCIUM 9.2 mg/dL (8.5-10.4); CARBON DIOXIDE 19 mEq/l (22-31); CHLORIDE 109 mEq/L (97-110); CREATININE 1.3 mg/dL (0.6-1.0); GLOMERULAR FILTRATION RATE 42; GLUCOSE 136 mg/dL (70-100); POTASSIUM 4.3 mEq/L (3.5-5.2); SODIUM 142 mEq/L (134-144)
--- NOTE | 2016-11-13 12:06 | SOAPPROG ---
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 Initial functional independence measure 69 on 11/10/2016. Walked 8 feet at the rail with 2 person assist. She requires moderate assistance for bed mobility. She transfers with minimal assist, but is a 2 person assist per nursing especially at night. She is having some return of movement at the left lower extremity but tends to have ankle inversion and may benefit from a brace. Upper extremity dressing requires setup and supervision; lower body dressing is done with moderate assistance. Continue physical and occupational therapies to optimize mobility and activities of daily living. * Cognition. Mild to moderate deficits to attention problem solving and reasoning. Continue speech therapy. * Acute Kidney Injury. Non-oliguric, potential etiologies include AIN Vanco toxicity vs. hypovolemia in setting of infxn, exacerbated by concomitant ACEi use - off Vanco, BEBE w/o hydro - repeat Cr/BUN today downtrending w/ good UOP - hold ACEi until resolved, hold on IVF since she is maintaining good intake , repeat Cr tomorrow * Nephrolithiasis. Continue tamsulosin and pain control. Symptoms seem to have resolved. Small stone on US, no e/o 4mm stone mentioned at [facility] - suspect she has passed the larger stone - cont tamsulosin, administer in AM to avoid exacerbating nocturia * Nocturia. Chronic issue per patient, w/o notable frequency during day, UA w/ o UTI - suspect this is 2/2 evening intake of fluid, and I've counseled patient to not drink fluids after 7 p.m. - she is concerned about dry-mouth, and I've advised her to swish and spit after 7 p.m. - cont oxybutnin, as this may help alleviate any concomitant urge sensation HS - gauge effect * Insomnia and daytime fatigue. Complicated by nocturia and cough. Trial of low-dose oxybutynin 10 mg at HS started 11/11/16. Continue guaifenesin/DM PRN. * Pain at PICC site. Does not appear infected, no DVT on US * Hypertension. Adequate control. Unclear indication for beta-aureliano. Holding ACEi until renal fxn improves, may need uptitration of bblocker or adjustment to amlodipine if her daytime fatigue continues * Leukocytosis, potentially 2/2 recent thrombophlebitis, does have LLE edema - will order outside records from [facility] since patient believes LE US already recent performed for LE edema - if no LE US, will order * Septic thrombophlebitis left antecubital fossa. Currently no signs or symptoms of active infection. Reviewed Dr. Tobar's consultation 11/12 - cont renally dosed Ancef 2g q12 Chronic/stable conditions: * Abnormal liver function tests. Possibly due to atorvastatin. Hepatitis profile negative. LFTs improving on labs 11/11/2016. - repeating tomorrow * Asthma/allergies/cough. Contributing to sleep disturbance. Discussed with her piecer up, Dr. Almanza. She was receiving monthly immunotherapy injections for seasonal allergies. She also was on Breo which is equivalent to current Advair, albuterol which she has on a p.r.n. basis, nasal fluticasone which is currently ordered, and an ebjy-rvr-rrflboe antihistamine. Improved with addition of cetirizine 11/10/2016. * Dysphagia in the hospital which has improved. Continue speech therapy. Advanced to regular diet with thin liquids. * Secondary prevention of CVA with blood pressure control on carvedilol and lisinopril and lipid control on atorvastatin, and aspirin. * GERD. Continue pantoprazole. * DM2. HgbA1c was 7.3 in the hospital. No indication for medication at present. D/C BS checks. Rubber Stamp Dies Inspector to advise patient. - would recommend she initiate metformin 500mg bid as outpt once GRETCHEN completely resolved * Prophylaxis. Continue enoxaparin 30 mg subcutaneous twice daily until mobility improves. Continue SCDs and Josse hose. Continue pantoprazole for GI prophylaxis on enoxaparin plus aspirin. Patient and her are both living on disability; they sleep in separate rooms. She has been in the basement but she can move to the main level. Discharge date set for 12/01/2016. Follow-up: PCP Yesenia Menendez after discharge [phone] Victoria early December [address] Noel Rodrigez for cardiac event monitor after discharge Subjective: patient reports fatigue s/p working w/ therapy; moving bowels; ongoing nocturia Objective: Vital Signs Temp Pulse Resp BP Pulse Ox 36.6 C 60 18 120/60 93 11/13/16 06:27 11/13/16 09:53 11/13/16 06:27 11/13/16 09:54 11/13/16 06:27 Laboratory Results 11/12/16 10:40 11/13/16 09:15 11/12/16 11/13/16 11/14/16 05:59 05:59 05:59 Intake Total 1580 860 240 Output Total 3325 2550 400 Balance -0876 -1690 -160 Physical Exam - Physical Exam General Appearance: alert, no apparent distress, obese, No anxiety Respiratory: chest non-tender, lungs clear, normal breath sounds, No respiratory distress Cardiac/Chest: normal peripheral pulses, regular rate, rhythm, edema (1+ LLE), No irregularly irregular Abdomen: normal bowel sounds, non-tender, soft, No distended Neuro/Psych: oriented x 3, other (motor 2/5 LUE and 4/5 LLE, subjective paresthesia LUE, CN II-XII intact and tested) ICD10 Worksheet Patient Problems: Problems Problem Status Onset Cerebrovascular accident (CVA) involving right middle cerebral artery territory Acute Left hemiparesis Acute Nephrolithiasis Acute Septic thrombophlebitis of upper extremity Acute
--- NOTE | 2016-11-13 14:44 | PCMIDPN ---
Assessment/Plan: # MSSA bacteremia and superficial septic thrombophlebitis cephalic vein L arm, changed to cefazolin from vancomycin yesterday after review of allergies and is tolerating well without evidence rash or itching. Blood cx cleared at OSH >IV antibiotics through 12/01 >Remove PICC line at DC >Weekly CBC, CMP, Next CBC will be tuesday >If Cr improves may need to adjust cefazolin dose but continue at cefazolin 2gm IV q12 >ID to see weekly # ARF - secondary to vancomycin, Cr improving today. Renal US without hydro >check Cr tomorrow # pain RUE assoc w PICC: DVT study negative # leukocytosis: no localizing symptoms: no diarrhea, dysuria; no evidence active infection L anticub; AF >if persists on Tuesday, could consider checking blood cx to eval for PICC Line infection Subjective: patient tearful because LUE spasm Objective: Vital Signs Temp Pulse Resp BP Pulse Ox 36.6 C 60 18 120/60 93 11/13/16 06:27 11/13/16 09:53 11/13/16 06:27 11/13/16 09:54 11/13/16 06:27 Laboratory Results 11/12/16 10:40 11/13/16 09:15 11/12/16 11/13/16 11/14/16 05:59 05:59 05:59 Intake Total 1580 860 240 Output Total 3325 2550 550 Balance -4875 -5860 -310 - Physical Exam General Appearance: alert, other (tearful but no resp distress) EENT: other (dentures, MMM), No thrush Respiratory: No accessory muscle use Neck: supple Extremities: other (L anticub with minimal inflammation) Abdomen: non-tender, soft Neuro/Psych: alert, oriented x 3, motor weakness (LUE), other (tearful) - Line/s LUE PICC Lines: No drainage, No erythema ICD10 Worksheet Patient Problems: Problems Problem Status Onset Cerebrovascular accident (CVA) involving right middle cerebral artery territory Acute Left hemiparesis Acute Nephrolithiasis Acute Septic thrombophlebitis of upper extremity Acute
[2016-11-13] MEDS: traZODone 50 MG TAB PO SCH (19:18)
[2016-11-13] MEDS: OXYBUTYNIN CHLORIDE 5 MG TAB PO SCH (20:37)
[2016-11-13] MEDS: ATORVASTATIN CALCIUM 40 MG TAB PO SCH (20:37)
[2016-11-14] MEDS: BACLOFEN 10 MG TAB PO PRN ×3 (03:53→13:49)
[2016-11-14] MEDS: ceFAZolin 2 GM/DEXTROSE 100 ML IV SCH ×2 (07:48→20:08)
[2016-11-14] MEDS: FLUTICASONE/SALMETER 250/50MCG DISKUS IH SCH ×2 (09:13→20:09)
[2016-11-14] MEDS: FLUTICASONE NASAL 120 SPRAYS/16 GM MDI EACHNARE SCH (09:14)
[2016-11-14] MEDS: CARVEDILOL 3.125 MG TAB PO SCH ×2 (09:15→17:48)
[2016-11-14] MEDS: ASPIRIN EC 81 MG TAB PO SCH (09:19)
[2016-11-14] MEDS: CETIRIZINE 10 MG TAB PO SCH (09:19)
[2016-11-14] MEDS: [UNRECOGNIZED DRUG - OTHER] TP SCH ×2 (09:20→20:09)
[2016-11-14] MEDS: MICONAZOLE NITRATE TP SCH ×2 (09:20→20:09)
[2016-11-14] MEDS: ENOXAPARIN 30 MG/0.3 ML SYR SC SCH ×2 (09:20→20:08)
[2016-11-14] MEDS: CHOLECALCIFEROL VIT D3 1,000 UNITS TAB PO SCH (09:20)
[2016-11-14] MEDS: MULTIVITAMINS 1 EACH TAB PO SCH (09:20)
[2016-11-14] MEDS: PANTOPRAZOLE SODIUM 40 MG TAB PO SCH (09:21)
[2016-11-14] MEDS: TAMSULOSIN HCL 0.4 MG CAP PO SCH (09:21)
[2016-11-14 09:44] LABS: ALANINE AMINOTRANSFERASE 54 IU/L (9-52); ALBUMIN 3.5 g/dL (3.5-5.0); ALKALINE PHOSPHATASE 56 IU/L (38-126); ANION GAP 11 mEq/L (8-16); ASPARTATE AMINOTRANSFERASE 26 IU/L (14-46); BILIRUBIN,TOTAL 0.3 mg/dL (0.1-1.4); CALCIUM 9.6 mg/dL (8.5-10.4); CARBON DIOXIDE 22 mEq/l (22-31); CHLORIDE 108 mEq/L (97-110); CREATININE 1.4 mg/dL (0.6-1.0); GLOMERULAR FILTRATION RATE 39; GLUCOSE 108 mg/dL (70-100); POTASSIUM 4.4 mEq/L (3.5-5.2); SODIUM 141 mEq/L (134-144); TOTAL PROTEIN 5.9 g/dL (6.3-8.2)
[2016-11-14] MEDS ORDERED: NS 1,000 ML IV SCH (12:00)
--- NOTE | 2016-11-14 13:34 | SOAPPROG ---
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 Initial functional independence measure 69 on 11/10/2016. Walked 8 feet at the rail with 2 person assist. She requires moderate assistance for bed mobility. She transfers with minimal assist, but is a 2 person assist per nursing especially at night. She is having some return of movement at the left lower extremity but tends to have ankle inversion and may benefit from a brace. Upper extremity dressing requires setup and supervision; lower body dressing is done with moderate assistance. Continue physical and occupational therapies to optimize mobility and activities of daily living. - Isauro/ASO brace for LLE ordered today per PT recs * Cognition. Mild to moderate deficits to attention problem solving and reasoning. Continue speech therapy. - suspect that some of her slowed reaction and fatigue is 2/2 methamphetamine withdraw, as RN was able to gather that patient has been chewing meth kleenex's for past 20 yrs (unbeknownst to her or family), and the fatigue she is experiencing here is likely indicative of withdraw from the meth * Acute Kidney Injury. Non-oliguric, potential etiologies include AIN Vanco toxicity vs. hypovolemia in setting of infxn, exacerbated by concomitant ACEi use - off Vanco, BEBE w/o hydro - repeat Cr/BUN today demonstrating persistently elevated Cr (1.4) w/ good UOP (2L/24hrs), suspect this was AIN/ATN and her renal recovery will slowly improve over time - hold ACEi until resolved - give 1L NS today given potential for hypovolemia and check FeNa - repeat Cr in AM * Nephrolithiasis. Continue tamsulosin and pain control. Symptoms seem to have resolved. Small stone on US, no e/o 4mm stone mentioned at [facility] - suspect she has passed the larger stone - cont tamsulosin, administer in AM to avoid exacerbating nocturia * Nocturia. Chronic issue per patient, w/o notable frequency during day, UA w/ o UTI - suspect this is 2/2 evening intake of fluid, and I've counseled patient to not drink fluids after 7 p.m. - she is concerned about dry-mouth, and I've advised her to swish and spit after 7 p.m. - cont oxybutnin, as this may help alleviate any concomitant urge sensation HS - only 3 episodes o/n * Insomnia. Responded well to trazodone 50 HS, continue * PICC site. Does not appear infected, no DVT on US * Hypertension. Adequate control. Unclear indication for beta-aureliano. Holding ACEi until renal fxn improves, may need uptitration of bblocker if GRETCHEN persists * Leukocytosis, potentially 2/2 recent thrombophlebitis, ID aware, repeat CBC in AM * Edema. LLE, 2/2 immobility, had a LLE US at [facility] which was neg for DVT, no indication to repeat * Septic thrombophlebitis left antecubital fossa. Currently no signs or symptoms of active infection. Reviewed Dr. Tobar's consultation 11/12 - cont renally dosed Ancef 2g q12 Chronic/stable conditions: * Abnormal liver function tests. Possibly due to atorvastatin. Hepatitis profile negative. LFTs improving on labs 11/11/2016. - repeating tomorrow * Asthma/allergies/cough. Contributing to sleep disturbance. Discussed with her radius corner machine operator, Dr. Almanza. She was receiving monthly immunotherapy injections for seasonal allergies. She also was on Breo which is equivalent to current Advair, albuterol which she has on a p.r.n. basis, nasal fluticasone which is currently ordered, and an [id number] antihistamine. Improved with addition of cetirizine 11/10/2016. * Dysphagia in the hospital which has improved. Continue speech therapy. Advanced to regular diet with thin liquids. * Secondary prevention of CVA with blood pressure control on carvedilol and lipid control on atorvastatin, and aspirin. * GERD. Continue pantoprazole. * DM2. HgbA1c was 7.3 in the hospital. No indication for medication at present. D/C BS checks. Relocation Manager to advise patient. - would recommend she initiate metformin 500mg bid as outpt once GRETCHEN completely resolved * Prophylaxis. Continue enoxaparin 30 mg subcutaneous twice daily until mobility improves. Continue SCDs and Josse hose. Continue pantoprazole for GI prophylaxis on enoxaparin plus aspirin. Patient and her are both living on disability; they sleep in separate rooms. She has been in the basement but she can move to the main level. Discharge date set for 12/01/2016. Follow-up: PCP Yesenia Menendez after discharge [phone] Victoria early December [address] Noel Rodrigez for cardiac event monitor after discharge 11/14/16 13:25 Subjective: patient reports charles worked well last night, moving bowels, only 3 episodes of nocturia, eating well Objective: Vital Signs Temp Pulse Resp BP Pulse Ox 36.6 C 60 16 138/80 H 92 11/14/16 06:41 11/14/16 09:15 11/14/16 06:41 11/14/16 09:15 11/14/16 06:41 Laboratory Results 11/12/16 10:40 11/14/16 06:05 11/13/16 11/14/16 11/15/16 05:59 05:59 05:59 Intake Total 860 730 360 Output Total 2550 4745 Balance -1690 -1349 360 Physical Exam - Physical Exam General Appearance: alert, no apparent distress, obese, No obtunded, No anxiety Respiratory: lungs clear, No crackles, No rales, No wheezing Cardiac/Chest: regular rate, rhythm, edema (1+ LLE), No tachycardia, No systolic murmur, No irregularly irregular Abdomen: normal bowel sounds, non-tender, soft, No distended, No guarding Skin: other (no erythema at RUE PICC site, mild induration remains present at LUE antecubital fossa), No diaphoresis, No rash Neuro/Psych: normal mood/affect, oriented x 3, other (CN II-XII intact/tested, LUE 3/5 motor, LLE 4/5 motor w/ hemiparesthesia, cooperative and following commands) ICD10 Worksheet Patient Problems: Problems Problem Status Onset Cerebrovascular accident (CVA) involving right middle cerebral artery territory Acute Left hemiparesis Acute Septic thrombophlebitis of upper extremity Acute Nephrolithiasis Acute
[2016-11-14] MEDS: ATORVASTATIN CALCIUM 40 MG TAB PO SCH (20:08)
[2016-11-14] MEDS: traZODone 50 MG TAB PO SCH (20:08)
[2016-11-14] MEDS: BACLOFEN 10 MG TAB PO SCH (20:08)
[2016-11-14] MEDS: OXYBUTYNIN CHLORIDE 5 MG TAB PO SCH (20:08)
[2016-11-15] MEDS: BACLOFEN 10 MG TAB PO PRN ×2 (03:30→14:12)
[2016-11-15 07:38] LABS: % IMMATURE GRANULYOCYTES 0.5 % (0.0-1.1); ABSOLUTE IMMATURE GRANULOCYTES 0.07 10^3/uL (0.00-0.10); ADD DIFF? NO; ADD MORPH? NO; ADD SCAN? NO; ATYPICAL LYMPHOCYTE FLAG 0 (0-99); FRAGMENT RBC FLAG 0 (0-99); HEMATOCRIT 34.3 % (38.0-47.0); HEMOGLOBIN 11.3 g/dL (12.6-16.3); LEFT SHIFT FLG 0 (0-99); LIPEMIA HEMOLYSIS FLAG 80 (0-99); MEAN CELL HEMOGLOBIN 29.1 pg (27.9-34.1); MEAN CELL HEMOGLOBIN CONCENTR. 32.9 g/dL (32.4-36.7); MEAN CELL VOLUME 88.4 fL (81.5-99.8); MEAN PLATELET VOLUME 9.8 fL (8.7-11.7); PLATELET CLUMPS FLAG 10 (0-99); PLATELET COUNT 322 10^3/uL (150-400); RED BLOOD CELL COUNT 3.88 10^6/uL (4.18-5.33); RED CELL DISTRIBUTION WIDTH 13.7 % (11.5-15.2)
[2016-11-15 07:49] LABS: ALANINE AMINOTRANSFERASE 43 IU/L (9-52); ALBUMIN 3.6 g/dL (3.5-5.0); ALKALINE PHOSPHATASE 54 IU/L (38-126); ANION GAP 13 mEq/L (8-16); ASPARTATE AMINOTRANSFERASE 28 IU/L (14-46); BILIRUBIN,TOTAL 0.4 mg/dL (0.1-1.4); CALCIUM 9.8 mg/dL (8.5-10.4); CARBON DIOXIDE 20 mEq/l (22-31); CHLORIDE 109 mEq/L (97-110); CREATININE 1.3 mg/dL (0.6-1.0); GLOMERULAR FILTRATION RATE 42; GLUCOSE 102 mg/dL (70-100); POTASSIUM 4.5 mEq/L (3.5-5.2); SODIUM 142 mEq/L (134-144); TOTAL PROTEIN 6.1 g/dL (6.3-8.2)
[2016-11-15] MEDS: ceFAZolin 2 GM/DEXTROSE 100 ML IV SCH ×2 (08:08→20:03)
[2016-11-15] MEDS: CARVEDILOL 3.125 MG TAB PO SCH ×2 (08:18→18:11)
[2016-11-15] MEDS: BACLOFEN 10 MG TAB PO SCH ×2 (08:18→20:04)
[2016-11-15] MEDS: ASPIRIN EC 81 MG TAB PO SCH (08:18)
[2016-11-15] MEDS: ENOXAPARIN 30 MG/0.3 ML SYR SC SCH ×2 (08:21→20:04)
[2016-11-15] MEDS: CETIRIZINE 10 MG TAB PO SCH (08:21)
[2016-11-15] MEDS: FLUTICASONE NASAL 120 SPRAYS/16 GM MDI EACHNARE SCH (08:21)
[2016-11-15] MEDS: CHOLECALCIFEROL VIT D3 1,000 UNITS TAB PO SCH (08:21)
[2016-11-15] MEDS: FLUTICASONE/SALMETER 250/50MCG DISKUS IH SCH ×2 (08:22→20:04)
[2016-11-15] MEDS: [UNRECOGNIZED DRUG - OTHER] TP SCH ×2 (08:23→19:21)
[2016-11-15] MEDS: MULTIVITAMINS 1 EACH TAB PO SCH (08:23)
[2016-11-15] MEDS: MICONAZOLE NITRATE TP SCH ×2 (08:23→19:21)
[2016-11-15] MEDS: PANTOPRAZOLE SODIUM 40 MG TAB PO SCH (08:24)
[2016-11-15] MEDS: TAMSULOSIN HCL 0.4 MG CAP PO SCH (08:24)
[2016-11-15] MEDS: [UNRECOGNIZED DRUG - OTHER] IH PRN (08:32)
--- NOTE | 2016-11-15 13:47 | SOAPPROG ---
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 * Left hemiparesis and debility status post CVA. Initial functional independence measure 69 on 11/10/2016. Walked 8 feet at the rail with 2 person assist. She requires moderate assistance for bed mobility. She transfers with minimal assist, but is a 2 person assist per nursing especially at night. She is having some return of movement at the left lower extremity but tends to have ankle inversion and may benefit from a brace. Upper extremity dressing requires setup and supervision; lower body dressing is done with moderate assistance. Continue physical and occupational therapies to optimize mobility and activities of daily living. * Cognition. Mild to moderate deficits to attention problem solving and reasoning. Continue speech therapy. * Acute renal insufficiency. No obstruction on retroperitoneal ultrasound. Little improvement after hydration. Possibly due to vancomycin. Possibly due to AIN/ATN with gradual recovery. ABBI inhibitor held. Recheck 11/18/2016. * Nephrolithiasis. Continue tamsulosin and pain control. Symptoms seem to have resolved. She has likely passed the 4 mm stone which was seen on abdominal CT in the hospital. * Urinary frequency/nocturia. She reports this is baseline for her. Will discontinue oxybutynin as it has not helped. * Insomnia and daytime fatigue. Due to history of methamphetamine? * Pain at PICC site. Ultrasound was negative for thrombus. Clinically not consistent with infection. Elevated white blood cell count; further evaluation per Infectious Disease. * Hypertension. Adequate control on carvedilol low dose, with lisinopril held. Continue to monitor. * Leukocytosis with white blood cell count 11.2. Unclear etiology. Not due to UTI or PICC site infection. Further evaluation per Infectious Disease. * Septic thrombophlebitis left antecubital fossa. Currently no signs or symptoms of active infection. Continue cefazolin. Further management per Infectious Disease.. Chronic/stable conditions: * Abnormal liver function tests. Possibly due to atorvastatin. Hepatitis profile negative. LFTs resolved 11/15/2016.. * Asthma/allergies/cough. Contributing to sleep disturbance. Discussed with her java developer consultant, Dr. Almanza. She was receiving monthly immunotherapy injections for seasonal allergies. She also was on Breo which is equivalent to current Advair, albuterol which she has on a p.r.n. basis, nasal fluticasone which is currently ordered, and an iolo-[id number]-hgacgfk antihistamine. Improved with addition of cetirizine 11/10/2016. * Dysphagia in the hospital which has improved. Continue speech therapy. Advanced to regular diet with thin liquids. * Secondary prevention of CVA with blood pressure control on carvedilol and lisinopril and lipid control on atorvastatin, and aspirin. * GERD. Continue pantoprazole. * DM2. HgbA1c was 7.3 in the hospital. No indication for medication at present. D/C BS checks. Insurance Claims Processor to advise patient. * Prophylaxis. Continue enoxaparin 30 mg subcutaneous twice daily until mobility improves. Continue SCDs and Josse hose. Continue pantoprazole for GI prophylaxis on enoxaparin plus aspirin. Patient and her are both living on disability; they sleep in separate rooms. She has been in the basement but she can move to the main level. Discharge date set for 12/01/2016. Follow-up: PCP Yesenia Menendez after discharge [phone] Victoria early December [address] Noel Rodrigez for cardiac event monitor after discharge [phone] 11/15/16 13:49 Subjective: No complaints. Says she slept better on the sleeping medicine that was prescribed over the weekend. There has been no change in her nocturia. She reports that it is about the same as baseline prior to her stroke. No fevers, chills, cough, dyspnea. No rash or other adverse effect of antibiotics noted. Objective: Vital Signs Temp Pulse Resp BP Pulse Ox 36.7 C 86 16 132/88 H 95 11/15/16 08:18 11/15/16 08:18 11/15/16 08:18 11/15/16 08:18 11/15/16 08:18 Laboratory Results 11/15/16 06:40 11/15/16 06:40 11/14/16 11/15/16 11/16/16 05:59 05:59 05:59 Intake Total 730 1660 Output Total 2075 1600 300 Balance -1345 60 -300 Physical Exam - Physical Exam General Appearance: WD/WN, alert, no apparent distress Respiratory: normal breath sounds, No crackles, No rhonchi, No wheezing Cardiac/Chest: regular rate, rhythm, No diastolic murmur, No systolic murmur Skin: normal color, warm/dry Neuro/Psych: alert, normal mood/affect, oriented x 3, motor weakness (LUE & LLE) ICD10 Worksheet Patient Problems: Problems Problem Status Onset Cerebrovascular accident (CVA) involving right middle cerebral artery territory Acute Left hemiparesis Acute Nephrolithiasis Acute Septic thrombophlebitis of upper extremity Acute - ICD10 Problem Qualifiers (1) Cerebrovascular accident (CVA) involving right middle cerebral artery territory (2) Left hemiparesis (3) Septic thrombophlebitis of upper extremity (4) Nephrolithiasis
[2016-11-15] MEDS: traZODone 50 MG TAB PO SCH (20:04)
[2016-11-15] MEDS: ATORVASTATIN CALCIUM 40 MG TAB PO SCH (20:04)
[2016-11-15] MEDS: TUSSIN DM PO PRN (22:36)
[2016-11-16] MEDS: BACLOFEN 10 MG TAB PO PRN ×3 (02:28→23:53)
[2016-11-16] MEDS: ENOXAPARIN 30 MG/0.3 ML SYR SC SCH ×2 (08:38→20:42)
[2016-11-16] MEDS: LISINOPRIL 10 MG TAB PO SCH (08:38)
[2016-11-16] MEDS: CARVEDILOL 3.125 MG TAB PO SCH ×2 (08:39→17:42)
[2016-11-16] MEDS: PANTOPRAZOLE SODIUM 40 MG TAB PO SCH (08:39)
[2016-11-16] MEDS: MULTIVITAMINS 1 EACH TAB PO SCH (08:39)
[2016-11-16] MEDS: ASPIRIN EC 81 MG TAB PO SCH (08:39)
[2016-11-16] MEDS: CHOLECALCIFEROL VIT D3 1,000 UNITS TAB PO SCH (08:39)
[2016-11-16] MEDS: TAMSULOSIN HCL 0.4 MG CAP PO SCH (08:39)
[2016-11-16] MEDS: BACLOFEN 10 MG TAB PO SCH ×2 (08:39→20:42)
[2016-11-16] MEDS: CETIRIZINE 10 MG TAB PO SCH (08:39)
[2016-11-16] MEDS: FLUTICASONE NASAL 120 SPRAYS/16 GM MDI EACHNARE SCH (08:40)
[2016-11-16] MEDS: FLUTICASONE/SALMETER 250/50MCG DISKUS IH SCH ×2 (08:41→20:43)
[2016-11-16] MEDS: ceFAZolin 2 GM/DEXTROSE 100 ML IV SCH ×2 (08:41→20:44)
[2016-11-16] MEDS: [UNRECOGNIZED DRUG - OTHER] TP SCH (08:42)
[2016-11-16] MEDS: MICONAZOLE NITRATE TP SCH (08:42)
[2016-11-16] MEDS: [UNRECOGNIZED DRUG - OTHER] IH PRN ×2 (08:48→20:43)
[2016-11-16] MEDS ORDERED: MICONAZOLE NITRATE TP PRN (14:02)
--- NOTE | 2016-11-16 16:35 | SOAPPROG ---
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 * Left hemiparesis and debility status post CVA. Initial functional independence measure 69 on 11/10/2016. Walked 8 feet at the rail with 2 person assist. She requires moderate assistance for bed mobility. She transfers with minimal assist, but is a 2 person assist per nursing especially at night. She is having some return of movement at the left lower extremity but tends to have ankle inversion and may benefit from a brace. Upper extremity dressing requires setup and supervision; lower body dressing is done with moderate assistance. Continue physical and occupational therapies to optimize mobility and activities of daily living. * Cognition. Mild to moderate deficits to attention problem solving and reasoning. Continue speech therapy. * Acute renal insufficiency. No obstruction on retroperitoneal ultrasound. Little improvement after hydration. Possibly due to vancomycin. Possibly due to AIN/ATN with gradual recovery. ABBI inhibitor held. Recheck 11/17/2016. * Hypertension. Elevated blood pressure today 11/16/2016 on carvedilol low dose , with lisinopril held. Check BMP in a.m. 11/17/2016; consider restart of lisinopril. Continue to monitor. * Nephrolithiasis. Continue tamsulosin and pain control. Symptoms seem to have resolved. She has likely passed the 4 mm stone which was seen on abdominal CT in the hospital. * Insomnia and daytime fatigue. Due to history of methamphetamine? * Pain at PICC site. Ultrasound was negative for thrombus. Clinically not consistent with infection. Elevated white blood cell count; further evaluation per Infectious Disease. * Leukocytosis with white blood cell count 11.2 on 11/08/2016; increased to 13.38 on 11/15/2016.. Unclear etiology. Not due to UTI or PICC site infection. Further evaluation per Infectious Disease. * Septic thrombophlebitis left antecubital fossa. Currently no signs or symptoms of active infection. Continue cefazolin. Further management per Infectious Disease. Chronic/stable conditions: * Urinary frequency/nocturia. She reports this is baseline for her. Will discontinue oxybutynin as it has not helped. * Abnormal liver function tests. Possibly due to atorvastatin. Hepatitis profile negative. LFTs resolved 11/15/2016.. * Asthma/allergies/cough. Contributing to sleep disturbance. Discussed with her padder cushion, Dr. Almanza. She was receiving monthly immunotherapy injections for seasonal allergies. She also was on Breo which is equivalent to current Advair, albuterol which she has on a p.r.n. basis, nasal fluticasone which is currently ordered, and an teya-syf-lzuiudp antihistamine. Improved with addition of cetirizine 11/10/2016. * Dysphagia in the hospital which has improved. Continue speech therapy. Advanced to regular diet with thin liquids. * Secondary prevention of CVA with blood pressure control on carvedilol and lisinopril and lipid control on atorvastatin, and aspirin. * GERD. Continue pantoprazole. * DM2. HgbA1c was 7.3 in the hospital. No indication for medication at present. D/C BS checks. Transport Medic to advise patient. * Prophylaxis. Continue enoxaparin 30 mg subcutaneous twice daily until mobility improves. Continue SCDs and Josse hose. Continue pantoprazole for GI prophylaxis on enoxaparin plus aspirin. Patient and her are both living on disability; they sleep in separate rooms. She has been in the basement but she can move to the main level. Discharge date set for 12/01/2016. Follow-up: PCP Yesenia Menendez after discharge [phone] Victoria early December [address] Noel Rodrigez for cardiac event monitor after discharge 11/15/16 13:49 11/16/16 16:32 Subjective: Tired today. Reports interrupted sleep last night. She had difficulty retaining sleep after being awake. She reports nocturia x3. Otherwise without complaints; she feels for use of her left upper and lower extremities is improving. No fevers, chills, cough, dyspnea. No rash or other intolerance to antibiotic noted. Objective: Vital Signs Temp Pulse Resp BP Pulse Ox 36.6 C 86 16 130/94 H 97 11/16/16 08:30 11/16/16 08:39 11/16/16 08:30 11/16/16 10:00 11/16/16 08:30 Laboratory Results 11/15/16 06:40 11/15/16 06:40 11/15/16 11/16/1617 05:59 05:59 05:59 Intake Total 9060 8313 356 Output Total 4151 0058 450 Balance 60 -45 -94 Physical Exam - Physical Exam General Appearance: WD/WN, alert, no apparent distress Respiratory: normal breath sounds, No crackles, No rhonchi, No wheezing Cardiac/Chest: regular rate, rhythm, No diastolic murmur, No systolic murmur Skin: normal color, warm/dry Neuro/Psych: alert, normal mood/affect, oriented x 3, motor weakness (Left upper extremity with normal mobility at the shoulder and mobility at the elbow. Minimal or no movement at the wrists and fingers.) ICD10 Worksheet Patient Problems: Problems Problem Status Onset Cerebrovascular accident (CVA) involving right middle cerebral artery territory Acute Left hemiparesis Acute Nephrolithiasis Acute Septic thrombophlebitis of upper extremity Acute - ICD10 Problem Qualifiers (1) Cerebrovascular accident (CVA) involving right middle cerebral artery territory (2) Left hemiparesis (3) Septic thrombophlebitis of upper extremity (4) Nephrolithiasis
[2016-11-16] MEDS: traZODone 50 MG TAB PO SCH (20:42)
[2016-11-16] MEDS: ATORVASTATIN CALCIUM 40 MG TAB PO SCH (20:42)
[2016-11-16] MEDS: ACETAMINOPHEN 325 MG TAB PO PRN (23:53)
[2016-11-17] MEDS ORDERED: TEMAZEPAM 15 MG CAP PO ONE (03:45)
[2016-11-17 08:01] LABS: ANION GAP 10 mEq/L (8-16); CALCIUM 9.8 mg/dL (8.5-10.4); CARBON DIOXIDE 20 mEq/l (22-31); CHLORIDE 107 mEq/L (97-110); CREATININE 1.2 mg/dL (0.6-1.0); GLOMERULAR FILTRATION RATE 46; GLUCOSE 123 mg/dL (70-100); POTASSIUM 4.4 mEq/L (3.5-5.2); SODIUM 137 mEq/L (134-144)
[2016-11-17] MEDS: ENOXAPARIN 30 MG/0.3 ML SYR SC SCH ×2 (08:22→20:32)
[2016-11-17] MEDS: ceFAZolin 2 GM/DEXTROSE 100 ML IV SCH ×2 (08:22→20:31)
[2016-11-17] MEDS: MULTIVITAMINS 1 EACH TAB PO SCH (08:23)
[2016-11-17] MEDS: CHOLECALCIFEROL VIT D3 1,000 UNITS TAB PO SCH ×2 (08:23→08:24)
[2016-11-17] MEDS: CETIRIZINE 10 MG TAB PO SCH (08:23)
[2016-11-17] MEDS: BACLOFEN 10 MG TAB PO SCH ×2 (08:23→20:32)
[2016-11-17] MEDS: ASPIRIN EC 81 MG TAB PO SCH (08:23)
[2016-11-17] MEDS: TAMSULOSIN HCL 0.4 MG CAP PO SCH (08:24)
[2016-11-17] MEDS: CARVEDILOL 3.125 MG TAB PO SCH ×2 (08:24→17:54)
[2016-11-17] MEDS: FLUTICASONE NASAL 120 SPRAYS/16 GM MDI EACHNARE SCH (08:31)
[2016-11-17] MEDS: LISINOPRIL 10 MG TAB PO SCH (08:31)
[2016-11-17] MEDS: FLUTICASONE/SALMETER 250/50MCG DISKUS IH SCH ×2 (08:32→20:32)
[2016-11-17] MEDS: [UNRECOGNIZED DRUG - OTHER] IH PRN (08:32)
[2016-11-17] MEDS: PANTOPRAZOLE SODIUM 40 MG TAB PO SCH (08:33)
--- NOTE | 2016-11-17 09:53 | SOAPPROG ---
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 * Left hemiparesis and debility status post CVA. Initial functional independence measure 69 on 11/10/2016; improved to 82 on 11/17/2016. Standby assist for wheelchair mobility with improved use of the left lower extremity. Walked 8 feet using walking staff with 1 person assist. Standby assistance for bed mobility. 1 person assist per nursing at night. Upper extremity dressing requires setup and supervision; lower body dressing is done with min assistance. Continue physical and occupational therapies to optimize mobility and activities of daily living. * Cognition. Mild deficits to attention working memory. Continue speech therapy. * Acute renal insufficiency. No obstruction on retroperitoneal ultrasound. Little improvement after hydration. Possibly due to vancomycin, versus titration of ABBI inhibitor. Possibly due to AIN/ATN with gradual recovery. ABBI inhibitor held. Renal function continues to improve with creatinine 1.2 and GFR 46 on 11/17/2016. * Hypertension. Elevated blood pressure 11/16/2016 on carvedilol low dose, with lisinopril held. Blood pressure subsequently adequately controlled. Continue to monitor. * Nephrolithiasis. Continue tamsulosin and pain control. Symptoms seem to have resolved. She has likely passed the 4 mm stone which was seen on abdominal CT in the hospital. * Insomnia and daytime fatigue. Fatigue may be due to history of methamphetamine. Initiate zolpidem 11/17/2016 at 10 mg. Subsequently reduce to 5 mg scheduled and 5 mg p.r.n. with goal to achieve adequate sleep with smallest possible dose. * Pain at PICC site. Ultrasound was negative for thrombus. Clinically not consistent with infection. Elevated white blood cell count; further evaluation per Infectious Disease. * Leukocytosis with white blood cell count 11.2 on 11/08/2016; increased to 13.38 on 11/15/2016.. Unclear etiology. Not due to UTI or PICC site infection. Further evaluation per Infectious Disease. * Septic thrombophlebitis left antecubital fossa. Currently no signs or symptoms of active infection. Continue cefazolin. Further management per Infectious Disease. Chronic/stable conditions: * Urinary frequency/nocturia. She reports this is baseline for her. Will discontinue oxybutynin as it has not helped. * Abnormal liver function tests. Possibly due to atorvastatin. Hepatitis profile negative. LFTs resolved 11/15/2016. * Asthma/allergies/cough. Contributing to sleep disturbance. Discussed with her atmospheric chemist, Dr. Almanza. She was receiving monthly immunotherapy injections for seasonal allergies. She also was on Breo which is equivalent to current Advair, albuterol which she has on a p.r.n. basis, nasal fluticasone which is currently ordered, and an [id number] antihistamine. Improved with addition of cetirizine 11/10/2016. * Dysphagia in the hospital which has improved. Continue speech therapy. Advanced to regular diet with thin liquids. * Secondary prevention of CVA with blood pressure control and lipid control, and aspirin. * GERD. Continue pantoprazole. * DM2. HgbA1c was 7.3 in the hospital. No indication for medication at present. D/C BS checks. Environmental Services Assistant to advise patient. * Prophylaxis. Continue enoxaparin 30 mg subcutaneous twice daily until mobility improves. Continue SCDs and BRICE hose. Continue pantoprazole for GI prophylaxis on enoxaparin plus aspirin. Attended staffing, 15 minutes. Discussed with Case Management, dietitian, nursing, PT, OT, INKER MACHINE. Patient and her are both living on disability; they sleep in separate rooms. She has been in the basement but she can move to the main level. Discharge date set for 12/01/2016. Follow-up: PCP Yesenia Menendez after discharge [phone] Victoria early December [address] Noel Rodrigez for cardiac event monitor after discharge 11/17/16 10:58 Subjective: Poor sleep last night. Eventually was given a dose of temazepam and got some sleep after that. Feels fatigued. Otherwise without complaints; had a good day yesterday and went outside. No fevers, chills, cough, dyspnea. Objective: Vital Signs Temp Pulse Resp BP Pulse Ox 36.5 C 68 16 136/96 H 96 11/17/16 08:00 11/17/16 08:24 11/17/16 08:00 11/17/16 08:31 11/17/16 08:00 Laboratory Results 11/15/16 06:40 11/17/16 06:00 11/16/16 11/17/16 11/18/16 05:59 05:59 05:59 Intake Total 0265 8626 Output Total 9045 0160 Balance -45 106 - Time Spent With Patient Time Spent With Patient: Greater than 35 minutes floor time today, including more than 50% of time in coordination of care during staffing meeting, and counseling patient and . Physical Exam - Physical Exam General Appearance: WD/WN, alert, no apparent distress Respiratory: normal breath sounds, No crackles, No rhonchi, No wheezing Cardiac/Chest: regular rate, rhythm, No diastolic murmur, No systolic murmur Skin: normal color, warm/dry Neuro/Psych: alert, normal mood/affect, oriented x 3, abnormal gait (Observed in PT, walking staff in right hand ambulating a few steps needing knee blocking to bear weight on left lower extremity), motor weakness (LUE) ICD10 Worksheet Patient Problems: Problems Problem Status Onset Cerebrovascular accident (CVA) involving right middle cerebral artery territory Acute Left hemiparesis Acute Nephrolithiasis Acute Septic thrombophlebitis of upper extremity Acute - ICD10 Problem Qualifiers (1) Cerebrovascular accident (CVA) involving right middle cerebral artery territory (2) Left hemiparesis (3) Septic thrombophlebitis of upper extremity (4) Nephrolithiasis
[2016-11-17] MEDS: BACLOFEN 10 MG TAB PO PRN (17:56)
[2016-11-17] MEDS: ATORVASTATIN CALCIUM 40 MG TAB PO SCH (20:31)
[2016-11-17] MEDS: traZODone 50 MG TAB PO SCH (20:31)
[2016-11-17] MEDS ORDERED: ZOLPIDEM TARTRATE 5 MG TAB PO ONE (21:00)
[2016-11-18] MEDS: BACLOFEN 10 MG TAB PO PRN ×2 (01:25→14:10)
[2016-11-18] MEDS: ceFAZolin 2 GM/DEXTROSE 100 ML IV SCH ×2 (08:31→20:35)
[2016-11-18] MEDS: ASPIRIN EC 81 MG TAB PO SCH (08:44)
[2016-11-18] MEDS: CETIRIZINE 10 MG TAB PO SCH ×2 (08:46→20:40)
[2016-11-18] MEDS: BACLOFEN 10 MG TAB PO SCH ×2 (08:46→20:40)
[2016-11-18] MEDS: CARVEDILOL 3.125 MG TAB PO SCH ×2 (08:46→17:31)
[2016-11-18] MEDS: FLUTICASONE NASAL 120 SPRAYS/16 GM MDI EACHNARE SCH (08:48)
[2016-11-18] MEDS: CHOLECALCIFEROL VIT D3 1,000 UNITS TAB PO SCH (08:48)
[2016-11-18] MEDS: ENOXAPARIN 30 MG/0.3 ML SYR SC SCH ×2 (08:48→20:40)
[2016-11-18] MEDS: FLUTICASONE/SALMETER 250/50MCG DISKUS IH SCH ×2 (08:49→20:41)
[2016-11-18] MEDS: SENNOSIDES 1 TAB PO PRN (08:51)
[2016-11-18] MEDS: [UNRECOGNIZED DRUG - OTHER] IH PRN (08:51)
[2016-11-18] MEDS: PANTOPRAZOLE SODIUM 40 MG TAB PO SCH (08:51)
[2016-11-18] MEDS: TAMSULOSIN HCL 0.4 MG CAP PO SCH (08:52)
[2016-11-18] MEDS: MULTIVITAMINS 1 EACH TAB PO SCH (08:53)
[2016-11-18] MEDS: LISINOPRIL 10 MG TAB PO SCH (08:54)
--- NOTE | 2016-11-18 15:55 | SOAPPROG ---
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 Today's update: Doing well with therapies, still has daytime fatigue. She is sleeping better on Ambien. She would like to stop either the Ambien or the trazodone, and given that she had better effect with Ambien, will stop the trazodone. Continues to have dependent edema on the left side, and had negative lower extremity Doppler earlier in her hospitalization. No changes in her swelling since that time. Continue to monitor. * Left hemiparesis and debility status post CVA. Initial functional independence measure 69 on 11/10/2016; improved to 82 on 11/17/2016. Standby assist for wheelchair mobility with improved use of the left lower extremity. Walked 8 feet using walking staff with 1 person assist. Standby assistance for bed mobility. 1 person assist per nursing at night. Upper extremity dressing requires setup and supervision; lower body dressing is done with min assistance. Continue physical and occupational therapies to optimize mobility and activities of daily living. Continues to have lower extremity dependent edema on the affected side. * Cognition. Mild deficits to attention working memory. Continue speech therapy. * Acute renal insufficiency. No obstruction on retroperitoneal ultrasound. Little improvement after hydration. Possibly due to vancomycin, versus titration of BABI inhibitor. Possibly due to AIN/ATN with gradual recovery. ABBI inhibitor held. Renal function continues to improve with creatinine 1.2 and GFR 46 on 11/17/2016. * Hypertension. Elevated blood pressure 11/16/2016 on carvedilol low dose, with lisinopril held. Blood pressure subsequently adequately controlled. Continue to monitor. * Nephrolithiasis. Continue tamsulosin and pain control. Symptoms seem to have resolved. She has likely passed the 4 mm stone which was seen on abdominal CT in the hospital. * Insomnia and daytime fatigue. Fatigue may be due to history of methamphetamine. Initiate zolpidem 11/17/2016 at 10 mg. Subsequently reduce to 5 mg scheduled and 5 mg p.r.n. with goal to achieve adequate sleep with smallest possible dose. Stopped trazodone * Pain at PICC site. Ultrasound was negative for thrombus. Clinically not consistent with infection. Elevated white blood cell count; further evaluation per Infectious Disease. * Leukocytosis with white blood cell count 11.2 on 11/08/2016; increased to 13.38 on 11/15/2016.. Unclear etiology. Not due to UTI or PICC site infection. Further evaluation per Infectious Disease. * Septic thrombophlebitis left antecubital fossa. Currently no signs or symptoms of active infection. Continue cefazolin. Further management per Infectious Disease. * Spasms: Controlled with baclofen Chronic/stable conditions: * Urinary frequency/nocturia. She reports this is baseline for her. Will discontinue oxybutynin as it has not helped. * Abnormal liver function tests. Possibly due to atorvastatin. Hepatitis profile negative. LFTs resolved 11/15/2016. * Asthma/allergies/cough. Contributing to sleep disturbance. Discussed with her strategic intelligence officer, Dr. Almanza. She was receiving monthly immunotherapy injections for seasonal allergies. She also was on Breo which is equivalent to current Advair, albuterol which she has on a p.r.n. basis, nasal fluticasone which is currently ordered, and an [id number] antihistamine. Improved with addition of cetirizine 11/10/2016. * Dysphagia in the hospital which has improved. Continue speech therapy. Advanced to regular diet with thin liquids. * Secondary prevention of CVA with blood pressure control and lipid control, and aspirin. * GERD. Continue pantoprazole. * DM2. HgbA1c was 7.3 in the hospital. No indication for medication at present. D/C BS checks. Header Set Up Operator to advise patient. * Prophylaxis. Continue enoxaparin 30 mg subcutaneous twice daily until mobility improves. Continue SCDs and BRICE hose. Continue pantoprazole for GI prophylaxis on enoxaparin plus aspirin. Patient and her are both living on disability; they sleep in separate rooms. She has been in the basement but she can move to the main level. Discharge date set for 12/01/2016. Follow-up: PCP Yesenia Menendez after discharge [phone] Victoria early December [address] Noel Rodrigez for cardiac event monitor after discharge 11/18/16 15:51 Subjective: Chief complaint: Insomnia and lower extremity swelling No acute events overnight. Patient endorses ongoing fatigue during the day and some improved sleep although she still had some difficulty. She noted it is much better on the Ambien, would like to stop the trazodone or the Ambien, and is okay with stopping either 1. Additionally, she endorses ongoing left lower limb swelling, dependent edema on her affected side. On review of the record she had a negative Doppler study earlier in this hospitalization. Also interview she has had relatively normal blood glucose is in the hospital, glucose generally diet controlled at home. Denies any new shortness of breath or chest pain, no new numbness, tingling, or weakness. Objective: Vital Signs Temp Pulse Resp BP Pulse Ox 36.5 C 87 16 132/82 H 94 11/18/16 08:00 11/18/16 08:46 11/18/16 08:00 11/18/16 08:54 11/18/16 08:00 Laboratory Results 11/15/16 06:40 11/17/16 06:00 11/17/16 11/18/16 11/19/16 05:59 05:59 05:59 Intake Total 1456 376 740 Output Total 1350 1300 300 Balance 106 -924 440 Physical Exam - Physical Exam General Appearance: WD/WN, alert, no apparent distress EENT: No scleral icterus (R), No scleral icterus (L) Respiratory: lungs clear, normal breath sounds, No respiratory distress, No accessory muscle use Cardiac/Chest: normal peripheral pulses, regular rate, rhythm, edema (Left leg and left arm dependent edema) Abdomen: non-tender, soft Skin: normal color, warm/dry, No cyanosis Extremities: pedal edema (Left-sided dependent) Neuro/Psych: alert, normal mood/affect ICD10 Worksheet Patient Problems: Problems Problem Status Onset Cerebrovascular accident (CVA) involving right middle cerebral artery territory Acute Left hemiparesis Acute Nephrolithiasis Acute Septic thrombophlebitis of upper extremity Acute
[2016-11-18] MEDS: ZOLPIDEM TARTRATE 5 MG TAB PO SCH (20:40)
[2016-11-18] MEDS: ATORVASTATIN CALCIUM 40 MG TAB PO SCH (20:40)
[2016-11-18] MEDS ORDERED: ZOLPIDEM TARTRATE 5 MG TAB PO PRN (21:00)
[2016-11-19] MEDS: BACLOFEN 10 MG TAB PO PRN ×2 (03:04→15:14)
[2016-11-19] MEDS: CARVEDILOL 3.125 MG TAB PO SCH ×2 (07:21→17:49)
[2016-11-19] MEDS: BACLOFEN 10 MG TAB PO SCH ×2 (07:22→20:21)
[2016-11-19] MEDS: CHOLECALCIFEROL VIT D3 1,000 UNITS TAB PO SCH (08:37)
[2016-11-19] MEDS: MULTIVITAMINS 1 EACH TAB PO SCH (08:37)
[2016-11-19] MEDS: LISINOPRIL 10 MG TAB PO SCH (08:37)
[2016-11-19] MEDS: ASPIRIN EC 81 MG TAB PO SCH (08:38)
[2016-11-19] MEDS: PANTOPRAZOLE SODIUM 40 MG TAB PO SCH (08:38)
[2016-11-19] MEDS: TAMSULOSIN HCL 0.4 MG CAP PO SCH (08:38)
[2016-11-19] MEDS: ENOXAPARIN 30 MG/0.3 ML SYR SC SCH ×2 (08:39→20:21)
[2016-11-19] MEDS: ceFAZolin 2 GM/DEXTROSE 100 ML IV SCH ×2 (08:39→20:47)
[2016-11-19] MEDS: FLUTICASONE NASAL 120 SPRAYS/16 GM MDI EACHNARE SCH (08:40)
[2016-11-19] MEDS: FLUTICASONE/SALMETER 250/50MCG DISKUS IH SCH ×2 (08:40→20:21)
--- NOTE | 2016-11-19 09:17 | SOAPPROG ---
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 Today's update: The patient's low mood is consistent with adjustment, which is a new problem to this provider. Recommended counseling, she is not suicidal , and starting fluoxetine for dual treatment of low mood and for neural recovery after stroke. Additionally, her urinary frequency is isolated to evenings, may be helped by oxybutynin 5 mg nightly. We will start that this evening and monitor her symptoms, also encouraging her to keep her legs and arms elevated during the day to prevent dumping in the evening. She also has some new left-sided shoulder pain and decreased range of motion that may suggest a vaulting adhesive capsulitis. Continue to monitor and recommend general range of motion and exercise for now. Remainder of plan is unchanged. * Left hemiparesis and debility status post CVA. Initial functional independence measure 69 on 11/10/2016; improved to 82 on 11/17/2016. Standby assist for wheelchair mobility with improved use of the left lower extremity. Walked 8 feet using walking staff with 1 person assist. Standby assistance for bed mobility. 1 person assist per nursing at night. Upper extremity dressing requires setup and supervision; lower body dressing is done with min assistance. Continue physical and occupational therapies to optimize mobility and activities of daily living. Continues to have lower extremity dependent edema on the affected side. Started fluoxetine also for neural recovery. * Cognition. Mild deficits to attention working memory. Continue speech therapy. * Acute renal insufficiency. No obstruction on retroperitoneal ultrasound. Little improvement after hydration. Possibly due to vancomycin, versus titration of ABBI inhibitor. Possibly due to AIN/ATN with gradual recovery. ABBI inhibitor held. Renal function continues to improve with creatinine 1.2 and GFR 46 on 11/17/2016. * Hypertension. Elevated blood pressure 11/16/2016 on carvedilol low dose, with lisinopril held. Blood pressure subsequently adequately controlled. Continue to monitor. * Nephrolithiasis. Continue tamsulosin and pain control. Symptoms seem to have resolved. She has likely passed the 4 mm stone which was seen on abdominal CT in the hospital. * Insomnia and daytime fatigue. Fatigue may be due to history of methamphetamine. Initiate zolpidem 11/17/2016 at 10 mg. Subsequently reduce to 5 mg scheduled and 5 mg p.r.n. with goal to achieve adequate sleep with smallest possible dose. Stopped trazodone. * Pain at PICC site. Ultrasound was negative for thrombus. Clinically not consistent with infection. Elevated white blood cell count; further evaluation per Infectious Disease. * Leukocytosis with white blood cell count 11.2 on 11/08/2016; increased to 13.38 on 11/15/2016.. Unclear etiology. Not due to UTI or PICC site infection. Further evaluation per Infectious Disease. * Septic thrombophlebitis left antecubital fossa. Currently no signs or symptoms of active infection. Continue cefazolin. Further management per Infectious Disease. * Spasms: Controlled with baclofen * Adjustment: Recommended ongoing counseling, as well as starting fluoxetine 10 mg p.o. daily. This medication is also for neural recovery * Urinary frequency/nocturia. She reports this is baseline for her. trying oxybutynin once again * Left shoulder pain: Physical exam suggestive of possible evolving adhesive capsulitis. Recommended gentle range of motion and continued monitoring. Chronic/stable conditions: * Abnormal liver function tests. Possibly due to atorvastatin. Hepatitis profile negative. LFTs resolved 11/15/2016. * Asthma/allergies/cough. Contributing to sleep disturbance. Discussed with her strap folding machine operator, Dr. Almanza. She was receiving monthly immunotherapy injections for seasonal allergies. She also was on Breo which is equivalent to current Advair, albuterol which she has on a p.r.n. basis, nasal fluticasone which is currently ordered, and an [id number] antihistamine. Improved with addition of cetirizine 11/10/2016. * Dysphagia in the hospital which has improved. Continue speech therapy. Advanced to regular diet with thin liquids. * Secondary prevention of CVA with blood pressure control and lipid control, and aspirin. * GERD. Continue pantoprazole. * DM2. HgbA1c was 7.3 in the hospital. No indication for medication at present. D/C BS checks. Hotel Operations Manager to advise patient. * Prophylaxis. Continue enoxaparin 30 mg subcutaneous twice daily until mobility improves. Continue SCDs and BRICE hose. Continue pantoprazole for GI prophylaxis on enoxaparin plus aspirin. Patient and her are both living on disability; they sleep in separate rooms. She has been in the basement but she can move to the main level. Discharge date set for 12/01/2016. Follow-up: PCP Yesenia Menendez after discharge [phone] Victoria early December [address] Noel Rodrigez for cardiac event monitor after discharge [phone] 11/18/16 15:51 11/19/16 09:10 11/19/16 09:20 Subjective: Chief complaint: Low mood and urinary frequency No acute events overnight. Was told by nursing that the patient was tearful this morning as she was yesterday as well. She recently started Ambien. The patient denies that she had any problems with mood prior to the stroke. Now she is waking up tearful comma feels overwhelmed, and is looking forward to going home. No suicidal ideation. She also notes that she wakes up early because of her urinary frequency. She denies that there is a known cause for this, she does not have any more pain from her nephrolithiasis. Per the notes she has tried oxybutynin with Dr. Deng, however she does not recall this. She is interested in trying something again. She has been keeping her legs elevated periodically but still notes some swelling. No new shortness of breath or chest pain, no new numbness, tingling, or weakness. Objective: Vital Signs Temp Pulse Resp BP Pulse Ox 36.6 C 82 16 140/90 H 95 11/19/16 07:37 11/19/16 07:37 11/19/16 07:37 11/19/16 08:37 11/19/16 07:30 Laboratory Results 11/15/16 06:40 11/17/16 06:00 11/18/16 11/19/16 11/20/16 05:59 05:59 05:59 Intake Total 376 740 360 Output Total 1300 300 Balance -924 440 360 Physical Exam - Physical Exam General Appearance: WD/WN, alert, mild distress EENT: No scleral icterus (R), No scleral icterus (L) Respiratory: No respiratory distress, No accessory muscle use Cardiac/Chest: normal peripheral pulses, regular rate, rhythm, other ( Left leg edema) Skin: normal color, warm/dry, No cyanosis Extremities: swelling ( left leg), other ( tenderness around the left shoulder, decreased range of motion in all planes.) Neuro/Psych: alert, depressed affect ( dear full), other ( poor eye contact) ICD10 Worksheet Patient Problems: Problems Problem Status Onset Cerebrovascular accident (CVA) involving right middle cerebral artery territory Acute Left hemiparesis Acute Nephrolithiasis Acute Septic thrombophlebitis of upper extremity Acute
[2016-11-19] MEDS: FLUoxetine 10 MG CAP PO SCH (10:10)
[2016-11-19] MEDS: CETIRIZINE 10 MG TAB PO SCH (20:21)
[2016-11-19] MEDS: ATORVASTATIN CALCIUM 40 MG TAB PO SCH (20:21)
[2016-11-19] MEDS: ZOLPIDEM TARTRATE 5 MG TAB PO SCH (20:21)
[2016-11-19] MEDS: ACETAMINOPHEN 325 MG TAB PO PRN (20:29)
[2016-11-19] MEDS ORDERED: OXYBUTYNIN CHLORIDE 5 MG TAB PO SCH (21:00)
[2016-11-20] MEDS: ACETAMINOPHEN 325 MG TAB PO PRN ×2 (01:42→07:12)
[2016-11-20] MEDS: BACLOFEN 10 MG TAB PO PRN (05:26)
[2016-11-20] MEDS: CARVEDILOL 3.125 MG TAB PO SCH ×2 (07:13→18:20)
[2016-11-20] MEDS: LISINOPRIL 10 MG TAB PO SCH (08:20)
[2016-11-20] MEDS: FLUoxetine 10 MG CAP PO SCH (08:20)
[2016-11-20] MEDS: PANTOPRAZOLE SODIUM 40 MG TAB PO SCH (08:21)
[2016-11-20] MEDS: TAMSULOSIN HCL 0.4 MG CAP PO SCH (08:21)
[2016-11-20] MEDS: ENOXAPARIN 30 MG/0.3 ML SYR SC SCH ×2 (08:21→20:19)
[2016-11-20] MEDS: MULTIVITAMINS 1 EACH TAB PO SCH (08:21)
[2016-11-20] MEDS: ASPIRIN EC 81 MG TAB PO SCH (08:21)
[2016-11-20] MEDS: BACLOFEN 10 MG TAB PO SCH ×3 (08:21→22:30)
[2016-11-20] MEDS: CHOLECALCIFEROL VIT D3 1,000 UNITS TAB PO SCH (08:21)
[2016-11-20] MEDS: ceFAZolin 2 GM/DEXTROSE 100 ML IV SCH ×2 (08:22→20:22)
[2016-11-20] MEDS: FLUTICASONE NASAL 120 SPRAYS/16 GM MDI EACHNARE SCH (08:22)
[2016-11-20] MEDS: FLUTICASONE/SALMETER 250/50MCG DISKUS IH SCH ×2 (08:23→20:18)
--- NOTE | 2016-11-20 09:43 | SOAPPROG ---
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 Today's update: No acute events overnight. Patient continues to have urinary frequency at night at 5 mg dose of oxybutynin. Additionally, she has slightly elevated blood pressure, but it seems to be in the setting of ankle pain which she notes is slightly worsened. Unclear if she has had recent lower extremity ultrasound, but reportedly had 1 outside hospital. Checking a D- dimer 4 possible DVT risk. Additionally, she is requesting acidophilus which is not available at this hospital but she can bring it in and we can prescribe through pharmacy. The patient also feels that the left lower limb has spasms associated with it, difficult to appreciate however she felt the baclofen was helpful, increasing slightly to 10 mg 3 times a day with p.r.n. dose. * Left hemiparesis and debility status post CVA. Initial functional independence measure 69 on 11/10/2016; improved to 82 on 11/17/2016. Standby assist for wheelchair mobility with improved use of the left lower extremity. Walked 8 feet using walking staff with 1 person assist. Standby assistance for bed mobility. 1 person assist per nursing at night. Upper extremity dressing requires setup and supervision; lower body dressing is done with min assistance. Continue physical and occupational therapies to optimize mobility and activities of daily living. Continues to have lower extremity dependent edema on the affected side. Started fluoxetine also for neural recovery. * Cognition. Mild deficits to attention working memory. Continue speech therapy. * Acute renal insufficiency. No obstruction on retroperitoneal ultrasound. Little improvement after hydration. Possibly due to vancomycin, versus titration of ABBI inhibitor. Possibly due to AIN/ATN with gradual recovery. ABBI inhibitor held. Renal function continues to improve with creatinine 1.2 and GFR 46 on 11/17/2016. * Hypertension. Elevated blood pressure 11/16/2016 on carvedilol low dose, with lisinopril held. Blood pressure subsequently adequately controlled. Continue to monitor. * Nephrolithiasis. Continue tamsulosin and pain control. Symptoms seem to have resolved. She has likely passed the 4 mm stone which was seen on abdominal CT in the hospital. * Insomnia and daytime fatigue. Fatigue may be due to history of methamphetamine. Initiate zolpidem 11/17/2016 at 10 mg. Subsequently reduce to 5 mg scheduled and 5 mg p.r.n. with goal to achieve adequate sleep with smallest possible dose. Stopped trazodone. * Pain at PICC site. Ultrasound was negative for thrombus. Clinically not consistent with infection. Elevated white blood cell count; further evaluation per Infectious Disease. * Leukocytosis with white blood cell count 11.2 on 11/08/2016; increased to 13.38 on 11/15/2016.. Unclear etiology. Not due to UTI or PICC site infection. Further evaluation per Infectious Disease. * Septic thrombophlebitis left antecubital fossa. Currently no signs or symptoms of active infection. Continue cefazolin. Further management per Infectious Disease. * Spasms: Helped with baclofen, increased to 10 mg TID with PRN on 11/20 * Adjustment: Recommended ongoing counseling, as well as starting fluoxetine 10 mg p.o. daily. This medication is also for neural recovery * Urinary frequency/nocturia. She reports this is baseline for her. trying oxybutynin once again, increasing from 5 mg to 10 mg 11/20 * Left shoulder pain: Physical exam suggestive of possible evolving adhesive capsulitis. Recommended gentle range of motion and continued monitoring. * Left ankle and foot pain: Seems most consistent with neuropathic pain with recovery of sensation, however she does have some tenderness at the calf. She has had previously negative lower extremity Dopplers (reportedly at outside hospital, only upper limb done at [facility]), checking a D-dimer. Minimal lower extremity swelling. Chronic/stable conditions: * Abnormal liver function tests. Possibly due to atorvastatin. Hepatitis profile negative. LFTs resolved 11/15/2016. * Asthma/allergies/cough. Contributing to sleep disturbance. Discussed with her senior field service engineer, Dr. Almanza. She was receiving monthly immunotherapy injections for seasonal allergies. She also was on Breo which is equivalent to current Advair, albuterol which she has on a p.r.n. basis, nasal fluticasone which is currently ordered, and an [id number] antihistamine. Improved with addition of cetirizine 11/10/2016. * Dysphagia in the hospital which has improved. Continue speech therapy. Advanced to regular diet with thin liquids. * Secondary prevention of CVA with blood pressure control and lipid control, and aspirin. * GERD. Continue pantoprazole. * DM2. HgbA1c was 7.3 in the hospital. No indication for medication at present. D/C BS checks. Ic Design Engineer to advise patient. * Prophylaxis. Continue enoxaparin 30 mg subcutaneous twice daily until mobility improves. Continue SCDs and BRICE hose. Continue pantoprazole for GI prophylaxis on enoxaparin plus aspirin. Patient and her are both living on disability; they sleep in separate rooms. She has been in the basement but she can move to the main level. Discharge date set for 12/01/2016. Follow-up: PCP Yesenia Menendez after discharge [phone] Victoria early December [address] Noel Rodrigez for cardiac event monitor after discharge [phone] 11/18/16 15:51 11/19/16 09:10 11/19/16 09:20 11/20/16 09:38 Subjective: Chief complaint: Left ankle pain No acute events overnight. Patient does endorse some slightly worsening left ankle pain, and feeling of cold. she has been getting increased sensation in the foot over the past few days. Additionally, she feels that it is crampy in nature and would like to increase the baclofen. Additionally she continued to wake up at night despite the start of oxybutynin 5 mg p.o. at bedtime, mostly related to urinary frequency. She did wake up feeling sad this morning, possibly not as bad as previous mornings. Just started fluoxetine. Blood pressure was slightly elevated however this was in the setting of increased pain this morning as well no new shortness of breath or chest pain, no new numbness or tingling or weakness. Objective: Vital Signs Temp Pulse Resp BP Pulse Ox 36.9 C 88 18 144/82 H 90 L 11/20/16 06:00 11/20/16 07:13 11/20/16 06:00 11/20/16 08:20 11/20/16 06:00 Laboratory Results 11/15/16 06:40 11/17/16 06:00 11/19/16 11/20/16 11/21/16 05:59 05:59 05:59 Intake Total 740 2300 120 Output Total 300 Balance 440 2300 120 Physical Exam - Physical Exam General Appearance: WD/WN, alert, mild distress Respiratory: normal breath sounds, No respiratory distress, No accessory muscle use Peripheral Pulses: 2+: dorsalis-pedis (L) ( Good capillary refill, lower limbs were identical in temperature.) Skin: normal color, warm/dry, No cyanosis, No rash, No embolic lesions Extremities: normal inspection, normal capillary refill, calf tenderness ( on the left compared to the right), swelling ( Mild on the left compared to the right), Delmar's sign ( on the left compared to the right), other ( left ankle was not warm or red) Neuro/Psych: alert, facial droop ( on left), depressed affect ( endorses a slightly low mood) ICD10 Worksheet Patient Problems: Problems Problem Status Onset Cerebrovascular accident (CVA) involving right middle cerebral artery territory Acute Left hemiparesis Acute Nephrolithiasis Acute Septic thrombophlebitis of upper extremity Acute
[2016-11-20] MEDS ORDERED: BULGARICUS PO SCH (12:00)
[2016-11-20] MEDS ORDERED: ACIDOPHILUS PO SCH (12:00)
[2016-11-20] MEDS: CETIRIZINE 10 MG TAB PO SCH (20:18)
[2016-11-20] MEDS: ATORVASTATIN CALCIUM 40 MG TAB PO SCH (20:18)
[2016-11-20] MEDS: OXYBUTYNIN CHLORIDE 5 MG TAB PO SCH (20:19)
[2016-11-20] MEDS: ZOLPIDEM TARTRATE 5 MG TAB PO SCH (20:19)
[2016-11-21] MEDS: BACLOFEN 10 MG TAB PO PRN ×2 (04:29→14:27)
[2016-11-21] MEDS: ASPIRIN EC 81 MG TAB PO SCH (08:32)
[2016-11-21] MEDS: BACLOFEN 10 MG TAB PO SCH ×3 (08:32→20:26)
[2016-11-21] MEDS: PANTOPRAZOLE SODIUM 40 MG TAB PO SCH (08:32)
[2016-11-21] MEDS: FLUoxetine 10 MG CAP PO SCH (08:32)
[2016-11-21] MEDS: MULTIVITAMINS 1 EACH TAB PO SCH (08:33)
[2016-11-21] MEDS: CHOLECALCIFEROL VIT D3 1,000 UNITS TAB PO SCH (08:33)
[2016-11-21] MEDS: LISINOPRIL 10 MG TAB PO SCH (08:33)
[2016-11-21] MEDS: TAMSULOSIN HCL 0.4 MG CAP PO SCH (08:33)
[2016-11-21] MEDS: ENOXAPARIN 30 MG/0.3 ML SYR SC SCH ×2 (08:34→20:26)
[2016-11-21] MEDS: CARVEDILOL 3.125 MG TAB PO SCH ×2 (08:34→18:05)
[2016-11-21] MEDS: ceFAZolin 2 GM/DEXTROSE 100 ML IV SCH ×2 (08:34→20:26)
[2016-11-21] MEDS: FLUTICASONE/SALMETER 250/50MCG DISKUS IH SCH ×2 (08:41→20:28)
[2016-11-21] MEDS: FLUTICASONE NASAL 120 SPRAYS/16 GM MDI EACHNARE SCH (08:41)
[2016-11-21] MEDS: [UNRECOGNIZED DRUG - OTHER] IH PRN (08:41)
[2016-11-21] MEDS ORDERED: NON-FORMULARY NEW DRUG TP PRN (10:16)
--- NOTE | 2016-11-21 10:32 | SOAPPROG ---
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 Today's update: Regarding leg discomfort, D-dimer was negative, but does not appear to have significant swelling on the left compared to the right. Working with pharmacy to get non formulary acidophilus and blue goo available to her. Continuing to monitor her leg discomfort. Also her mood is much better this morning, she feels that the medication has been helping, she did not wake up tearful. Slept better. * Left hemiparesis and debility status post CVA. Initial functional independence measure 69 on 11/10/2016; improved to 82 on 11/17/2016. Standby assist for wheelchair mobility with improved use of the left lower extremity. Walked 8 feet using walking staff with 1 person assist. Standby assistance for bed mobility. 1 person assist per nursing at night. Upper extremity dressing requires setup and supervision; lower body dressing is done with min assistance. Continue physical and occupational therapies to optimize mobility and activities of daily living. Continues to have lower extremity dependent edema on the affected side. Started fluoxetine also for neural recovery. * Cognition. Mild deficits to attention working memory. Continue speech therapy. * Acute renal insufficiency. No obstruction on retroperitoneal ultrasound. Little improvement after hydration. Possibly due to vancomycin, versus titration of ABBI inhibitor. Possibly due to AIN/ATN with gradual recovery. ABBI inhibitor held. Renal function continues to improve with creatinine 1.2 and GFR 46 on 11/17/2016. * Hypertension. Elevated blood pressure 11/16/2016 on carvedilol low dose, with lisinopril held. Blood pressure subsequently adequately controlled. Continue to monitor. * Nephrolithiasis. Continue tamsulosin and pain control. Symptoms seem to have resolved. She has likely passed the 4 mm stone which was seen on abdominal CT in the hospital. * Insomnia and daytime fatigue. Fatigue may be due to history of methamphetamine. Initiate zolpidem 11/17/2016 at 10 mg. Subsequently reduce to 5 mg scheduled and 5 mg p.r.n. with goal to achieve adequate sleep with smallest possible dose. Stopped trazodone. * Pain at PICC site. Ultrasound was negative for thrombus. Clinically not consistent with infection. Elevated white blood cell count; further evaluation per Infectious Disease. * Leukocytosis with white blood cell count 11.2 on 11/08/2016; increased to 13.38 on 11/15/2016.. Unclear etiology. Not due to UTI or PICC site infection. Further evaluation per Infectious Disease. * Septic thrombophlebitis left antecubital fossa. Currently no signs or symptoms of active infection. Continue cefazolin. Further management per Infectious Disease. * Spasms: Helped with baclofen, increased to 10 mg TID with PRN on 11/20 * Adjustment: Recommended ongoing counseling, as well as fluoxetine 10 mg p.o. daily. This medication is also for neural recovery. Mood improving on fluoxetine. * Urinary frequency/nocturia. She reports this is baseline for her. Sleeping better on oxybutynin 10 mg p.o. at bedtime * Left shoulder pain: Physical exam suggestive of possible evolving adhesive capsulitis. Recommended gentle range of motion and continued monitoring. * Left ankle and foot pain: Seems most consistent with neuropathic pain with recovery of sensation, however she does have some tenderness at the calf. She has had previously negative lower extremity Dopplers (reportedly at outside hospital, only upper limb done at [facility]). D-dimer obtained 11/20/2016 was negative. Minimal swelling. Chronic/stable conditions: * Abnormal liver function tests. Possibly due to atorvastatin. Hepatitis profile negative. LFTs resolved 11/15/2016. * Asthma/allergies/cough. Contributing to sleep disturbance. Discussed with her wire straightening machine operator, Dr. Almanza. She was receiving monthly immunotherapy injections for seasonal allergies. She also was on Breo which is equivalent to current Advair, albuterol which she has on a p.r.n. basis, nasal fluticasone which is currently ordered, and an [id number] antihistamine. Improved with addition of cetirizine 11/10/2016. * Dysphagia in the hospital which has improved. Continue speech therapy. Advanced to regular diet with thin liquids. * Secondary prevention of CVA with blood pressure control and lipid control, and aspirin. * GERD. Continue pantoprazole. * DM2. HgbA1c was 7.3 in the hospital. No indication for medication at present. D/C BS checks. Court Crier to advise patient. * Prophylaxis. Continue enoxaparin 30 mg subcutaneous twice daily until mobility improves. Continue SCDs and BRICE hose. Continue pantoprazole for GI prophylaxis on enoxaparin plus aspirin. Patient and her are both living on disability; they sleep in separate rooms. She has been in the basement but she can move to the main level. Discharge date set for 12/01/2016. Follow-up: PCP Yesenia Menendez after discharge [phone] Victoria early December [address] Noel Rodrigez for cardiac event monitor after discharge 11/18/16 15:51 11/19/16 09:10 11/19/16 09:20 11/20/16 09:38 11/21/16 10:29 Subjective: chief complaint: Left leg and ankle pain, abnormal sensations No acute events overnight. Patient denies any new shortness of breath or chest pain, no new numbness, tingling, or weakness. She endorses ongoing left foot discomfort that she describes as a feeling of swelling and cold. D-dimer was negative yesterday. She is asking if she can have some Menthol rub and inclusion of acidophilus on her formulary. mood much better this morning, she did not wake up tearful. She feels that the fluoxetine has been helpful. Seems to have slept better. Objective: Vital Signs Temp Pulse Resp BP Pulse Ox 36.7 C 76 16 118/82 H 93 11/21/16 08:00 11/21/16 08:34 11/21/16 08:00 11/21/16 08:34 11/21/16 08:00 Laboratory Results 11/15/16 06:40 11/17/16 06:00 11/20/16 11/21/16 11/22/16 05:59 05:59 05:59 Intake Total 2300 1560 240 Balance 2300 1560 240 Physical Exam - Physical Exam General Appearance: WD/WN, alert, no apparent distress EENT: No scleral icterus (R), No scleral icterus (L) Respiratory: No respiratory distress, No accessory muscle use Cardiac/Chest: regular rate, rhythm, edema ( Mild bilateral lower extremity) Skin: normal color, warm/dry ( similar bilateral feet), No cyanosis Extremities: swelling ( minimal bilateral swelling, not much more on the left than on the right.) Neuro/Psych: alert, normal mood/affect, motor weakness ( Left ankle dorsiflexion and plantar flexion) ICD10 Worksheet Patient Problems: Problems Problem Status Onset Cerebrovascular accident (CVA) involving right middle cerebral artery territory Acute Left hemiparesis Acute Nephrolithiasis Acute Septic thrombophlebitis of upper extremity Acute
[2016-11-21] MEDS: BLUE GOO TP PRN (14:30)
[2016-11-21] MEDS: CETIRIZINE 10 MG TAB PO SCH (20:24)
[2016-11-21] MEDS: ATORVASTATIN CALCIUM 40 MG TAB PO SCH (20:24)
[2016-11-21] MEDS: OXYBUTYNIN CHLORIDE 5 MG TAB PO SCH (20:25)
[2016-11-21] MEDS: ZOLPIDEM TARTRATE 5 MG TAB PO SCH (20:25)
[2016-11-21] MEDS: [UNRECOGNIZED DRUG - OTHER] PO SCH (20:27)
[2016-11-21] MEDS ORDERED: NON-FORMULARY NEW DRUG PO SCH (21:00)
[2016-11-22] MEDS: BACLOFEN 10 MG TAB PO PRN ×2 (01:38→13:40)
[2016-11-22] MEDS: BLUE GOO TP PRN ×2 (01:40→13:40)
[2016-11-22] MEDS: ceFAZolin 2 GM/DEXTROSE 100 ML IV SCH ×2 (07:53→20:36)
[2016-11-22 08:00] LABS: % IMMATURE GRANULYOCYTES 0.3 % (0.0-1.1); ABSOLUTE IMMATURE GRANULOCYTES 0.03 10^3/uL (0.00-0.10); ADD DIFF? NO; ADD MORPH? NO; ADD SCAN? NO; ATYPICAL LYMPHOCYTE FLAG 10 (0-99); FRAGMENT RBC FLAG 0 (0-99); HEMATOCRIT 32.1 % (38.0-47.0); HEMOGLOBIN 10.5 g/dL (12.6-16.3); LEFT SHIFT FLG 0 (0-99); LIPEMIA HEMOLYSIS FLAG 80 (0-99); MEAN CELL HEMOGLOBIN 29.4 pg (27.9-34.1); MEAN CELL HEMOGLOBIN CONCENTR. 32.7 g/dL (32.4-36.7); MEAN CELL VOLUME 89.9 fL (81.5-99.8); MEAN PLATELET VOLUME 10.1 fL (8.7-11.7); PLATELET CLUMPS FLAG 0 (0-99); PLATELET COUNT 286 10^3/uL (150-400); RED BLOOD CELL COUNT 3.57 10^6/uL (4.18-5.33)
[2016-11-22 08:15] LABS: ALANINE AMINOTRANSFERASE 30 IU/L (9-52); ALBUMIN 3.3 g/dL (3.5-5.0); ALKALINE PHOSPHATASE 52 IU/L (38-126); ANION GAP 10 mEq/L (8-16); ASPARTATE AMINOTRANSFERASE 23 IU/L (14-46); BILIRUBIN,TOTAL 0.4 mg/dL (0.1-1.4); CALCIUM 9.8 mg/dL (8.5-10.4); CARBON DIOXIDE 22 mEq/l (22-31); CHLORIDE 107 mEq/L (97-110); CREATININE 1.2 mg/dL (0.6-1.0); GLOMERULAR FILTRATION RATE 46; GLUCOSE 101 mg/dL (70-100); POTASSIUM 4.4 mEq/L (3.5-5.2); SODIUM 139 mEq/L (134-144); TOTAL PROTEIN 5.9 g/dL (6.3-8.2)
[2016-11-22] MEDS: CARVEDILOL 3.125 MG TAB PO SCH ×2 (08:17→18:29)
[2016-11-22] MEDS: [UNRECOGNIZED DRUG - OTHER] PO SCH (08:18)
[2016-11-22] MEDS: ASPIRIN EC 81 MG TAB PO SCH (08:19)
[2016-11-22] MEDS: CHOLECALCIFEROL VIT D3 1,000 UNITS TAB PO SCH (08:19)
[2016-11-22] MEDS: BACLOFEN 10 MG TAB PO SCH ×3 (08:19→20:37)
[2016-11-22] MEDS: FLUoxetine 10 MG CAP PO SCH (08:20)
[2016-11-22] MEDS: ENOXAPARIN 30 MG/0.3 ML SYR SC SCH ×2 (08:20→20:37)
[2016-11-22] MEDS: FLUTICASONE NASAL 120 SPRAYS/16 GM MDI EACHNARE SCH (08:20)
[2016-11-22] MEDS: FLUTICASONE/SALMETER 250/50MCG DISKUS IH SCH (08:20)
[2016-11-22] MEDS: LISINOPRIL 10 MG TAB PO SCH (08:21)
[2016-11-22] MEDS: MULTIVITAMINS 1 EACH TAB PO SCH (08:21)
[2016-11-22] MEDS: TAMSULOSIN HCL 0.4 MG CAP PO SCH (08:22)
[2016-11-22] MEDS: PANTOPRAZOLE SODIUM 40 MG TAB PO SCH (08:22)
[2016-11-22] MEDS: SENNOSIDES 1 TAB PO PRN (08:23)
--- NOTE | 2016-11-22 12:46 | SOAPPROG ---
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 * Left hemiparesis and debility status post CVA. Initial functional independence measure 69 on 11/10/2016; improved to 82 on 11/17/2016. Standby assist for wheelchair mobility with improved use of the left lower extremity. Walked 8 feet using walking staff with 1 person assist. Standby assistance for bed mobility. 1 person assist per nursing at night. Upper extremity dressing requires setup and supervision; lower body dressing is done with min assistance. Continue physical and occupational therapies to optimize mobility and activities of daily living. * Cognition. Mild deficits to attention working memory. Continue speech therapy. * Acute renal insufficiency. No obstruction on retroperitoneal ultrasound. Little improvement after hydration. Possibly due to vancomycin, versus titration of ABBI inhibitor. Possibly due to AIN/ATN with gradual recovery. ABBI inhibitor held. Renal function stable with creatinine 1.2 and GFR 46 on and 11/22/2016. * Hypertension. Elevated blood pressure 11/16/2016 on carvedilol low dose, with lisinopril held. Blood pressure subsequently adequately controlled. Continue to monitor. * Anemia. Gradual worsening throughout her stay. Check reticulocyte count, iron panel, B12, stool hemoccults. * Nephrolithiasis. Symptoms seem to have resolved. She has likely passed the 4 mm stone which was seen on abdominal CT in the hospital. DC tamsulosin starting 11/23/2016. * Insomnia and daytime fatigue. Fatigue may be due to history of methamphetamine. Initiate zolpidem 11/17/2016 at 10 mg. Subsequently reduce to 5 mg scheduled and 5 mg p.r.n. with goal to achieve adequate sleep with smallest possible dose. * Septic thrombophlebitis left antecubital fossa. Currently no signs or symptoms of active infection. Continue cefazolin. Further management per Infectious Disease. Chronic/stable conditions: * Pain at PICC site. Ultrasound was negative for thrombus. * Leukocytosis with white blood cell count 11.2 on 11/08/2016; increased to 13.38 on 11/15/2016; resolved, 11/22/2016. * Urinary frequency/nocturia. She reports this is baseline for her. * Abnormal liver function tests. Possibly due to atorvastatin. Hepatitis profile negative. LFTs resolved 11/15/2016. * Asthma/allergies/cough. Contributing to sleep disturbance. Discussed with her pulling unit operator, Dr. Almanza. She was receiving monthly immunotherapy injections for seasonal allergies. She also was on Breo which is equivalent to current Advair, albuterol which she has on a p.r.n. basis, nasal fluticasone which is currently ordered, and an [id number] antihistamine. Improved with addition of cetirizine 11/10/2016. * Dysphagia in the hospital which has improved. Continue speech therapy. Advanced to regular diet with thin liquids. * Secondary prevention of CVA with blood pressure control and lipid control, and aspirin. * GERD. Continue pantoprazole. * DM2. HgbA1c was 7.3 in the hospital. No indication for medication at present. D/C BS checks. Padding Gluer to advise patient. * Prophylaxis. Continue enoxaparin 30 mg subcutaneous twice daily until mobility improves. Continue SCDs and BRICE hose. Continue pantoprazole for GI prophylaxis on enoxaparin plus aspirin. Patient and her are both living on disability; they sleep in separate rooms. She has been in the basement but she can move to the main level. Discharge date set for 12/01/2016. Follow-up: PCP Yesenia Menendez after discharge [phone] Victoria early December [address] Noel Rodrigez for cardiac event monitor after discharge [phone] 11/17/16 10:58 11/22/16 12:40 Subjective: No complaints this morning. Slept better last night. Still with frequent urination, unchanged with oxybutynin. Has left leg pain especially as she gets more active with physical therapy. Objective: Vital Signs Temp Pulse Resp BP Pulse Ox 36.6 C 97 14 100/60 92 11/22/16 08:00 11/22/16 08:17 11/22/16 08:00 11/22/16 08:21 11/22/16 08:00 Laboratory Results 11/22/16 06:00 11/22/16 06:00 11/21/16 11/22/16 11/23/16 05:59 05:59 05:59 Intake Total 1560 440 240 Balance 1560 440 240 Physical Exam - Physical Exam General Appearance: WD/WN, alert, no apparent distress Respiratory: No accessory muscle use, No decreased breath sounds Skin: normal color, warm/dry Extremities: pedal edema (Trace on right, 1+ on left.) Neuro/Psych: alert, normal mood/affect, oriented x 3 ICD10 Worksheet Patient Problems: Problems Problem Status Onset Cerebrovascular accident (CVA) involving right middle cerebral artery territory Acute Left hemiparesis Acute Nephrolithiasis Acute Septic thrombophlebitis of upper extremity Acute - ICD10 Problem Qualifiers (1) Cerebrovascular accident (CVA) involving right middle cerebral artery territory (2) Left hemiparesis (3) Septic thrombophlebitis of upper extremity (4) Nephrolithiasis
[2016-11-22 13:29] LABS: HEMATOCRIT 32.7 % (38.0-47.0)
[2016-11-22 13:53] LABS: % SATURATION 12 % (20-55); TOTAL IRON BINDING CAPACITY 337 ug/dL (260-490)
[2016-11-22] MEDS: FERROUS SULFATE 325 MG TAB PO SCH (15:23)
[2016-11-22] MEDS: ATORVASTATIN CALCIUM 40 MG TAB PO SCH (20:37)
[2016-11-22] MEDS: ZOLPIDEM TARTRATE 5 MG TAB PO SCH (20:37)
[2016-11-22] MEDS: CETIRIZINE 10 MG TAB PO SCH (20:37)
[2016-11-22] MEDS: OXYBUTYNIN CHLORIDE 5 MG TAB PO SCH (20:37)
[2016-11-23] MEDS: FLUTICASONE/SALMETER 250/50MCG DISKUS IH SCH ×3 (00:45→20:32)
[2016-11-23] MEDS: [UNRECOGNIZED DRUG - OTHER] PO SCH ×5 (00:46→20:36)
[2016-11-23] MEDS: BLUE GOO TP PRN (01:10)
[2016-11-23] MEDS: BACLOFEN 10 MG TAB PO PRN ×2 (03:03→14:23)
[2016-11-23] MEDS: ACETAMINOPHEN 325 MG TAB PO PRN ×3 (03:03→14:22)
[2016-11-23] MEDS: ceFAZolin 2 GM/DEXTROSE 100 ML IV SCH ×2 (07:30→20:38)
[2016-11-23] MEDS ORDERED: MICONAZOLE NITRATE TP PRN (08:25)
[2016-11-23] MEDS: FLUTICASONE NASAL 120 SPRAYS/16 GM MDI EACHNARE SCH (08:34)
[2016-11-23] MEDS: BACLOFEN 10 MG TAB PO SCH ×4 (08:38→20:34)
[2016-11-23] MEDS: CARVEDILOL 3.125 MG TAB PO SCH ×2 (08:38→18:06)
[2016-11-23] MEDS: CHOLECALCIFEROL VIT D3 1,000 UNITS TAB PO SCH (08:39)
[2016-11-23] MEDS: FERROUS SULFATE 325 MG TAB PO SCH (08:39)
[2016-11-23] MEDS: ENOXAPARIN 30 MG/0.3 ML SYR SC SCH ×2 (08:39→20:38)
[2016-11-23] MEDS: LISINOPRIL 10 MG TAB PO SCH (08:40)
[2016-11-23] MEDS: FLUoxetine 10 MG CAP PO SCH (08:40)
[2016-11-23] MEDS: ASPIRIN EC 81 MG TAB PO SCH (08:41)
[2016-11-23] MEDS: PANTOPRAZOLE SODIUM 40 MG TAB PO SCH (08:41)
[2016-11-23] MEDS: MULTIVITAMINS 1 EACH TAB PO SCH (08:41)
--- NOTE | 2016-11-23 14:01 | SOAPPROG ---
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 * Left hemiparesis and debility status post CVA. Initial functional independence measure 69 on 11/10/2016; improved to 82 on 11/17/2016. Standby assist for wheelchair mobility with improved use of the left lower extremity. Walked 8 feet using walking staff with 1 person assist. Standby assistance for bed mobility. 1 person assist per nursing at night. Upper extremity dressing requires setup and supervision; lower body dressing is done with min assistance. Continue physical and occupational therapies to optimize mobility and activities of daily living. * Cognition. Mild deficits to attention working memory. Continue speech therapy. * Left ankle swelling. Possibly due to abnormal positioning with standing and ambulating. Encourage elevation of leg when not active. Will get will get x- ray. * Acute renal insufficiency. No obstruction on retroperitoneal ultrasound. Little improvement after hydration. Possibly due to vancomycin, versus titration of ABBI inhibitor. Possibly due to AIN/ATN with gradual recovery. ABBI inhibitor held. Renal function stable with creatinine 1.2 and GFR 46 on and 11/22/2016. * Hypertension. Adequate control on carvedilol 3.125 mg BID and lisinopril 20 mg QD. Continue to monitor. * Anemia. Gradual worsening throughout her stay. Reticulocytes low, B12 normal, but has iron deficiency on labs 11/22/2016. Hemoccult negative x2. Initiated ferrous sulfate iron replacement; will continue for 1 month. * Nephrolithiasis. Symptoms seem to have resolved. She has likely passed the 4 mm stone which was seen on abdominal CT in the hospital. DC tamsulosin starting 11/23/2016. * Insomnia and daytime fatigue. Fatigue may be due to history of methamphetamine. Initiate zolpidem 11/17/2016 at 10 mg. Subsequently reduce to 5 mg scheduled and 5 mg p.r.n. with goal to achieve adequate sleep with smallest possible dose. * Septic thrombophlebitis left antecubital fossa. Currently no signs or symptoms of active infection. Continue cefazolin. Further management per Infectious Disease. Chronic/stable conditions: * Pain at PICC site. Ultrasound was negative for thrombus. * Leukocytosis with white blood cell count 11.2 on 11/08/2016; increased to 13.38 on 11/15/2016; resolved, 11/22/2016. * Urinary frequency/nocturia. She reports this is baseline for her. * Abnormal liver function tests. Possibly due to atorvastatin. Hepatitis profile negative. LFT elevation resolved 11/15/2016. * Asthma/allergies/cough. Contributing to sleep disturbance. Discussed with her paper finisher, Dr. Almanza. She was receiving monthly immunotherapy injections for seasonal allergies. She also was on Breo which is equivalent to current Advair, albuterol which she has on a p.r.n. basis, nasal fluticasone which is currently ordered, and an [id number] antihistamine. Improved with addition of cetirizine 11/10/2016. * Dysphagia in the hospital which has improved. Continue speech therapy. Advanced to regular diet with thin liquids. * Secondary prevention of CVA with blood pressure control and lipid control, and aspirin. * GERD. Continue pantoprazole. * DM2. HgbA1c was 7.3 in the hospital. No indication for medication at present. D/C BS checks. Representative Personal Service to advise patient. * Prophylaxis. Continue enoxaparin 30 mg subcutaneous twice daily until mobility improves. Continue SCDs and BRICE hose. Continue pantoprazole for GI prophylaxis on enoxaparin plus aspirin. Patient and her are both living on disability; they sleep in separate rooms. She has been in the basement but she can move to the main level. Discharge date set for 12/01/2016. Follow-up: PCP Yesenia Menendez after discharge [phone] Victoria early December [address] Noel Rodrigez for cardiac event monitor after discharge 11/17/16 10:58 11/22/16 12:40 11/23/16 14:01 11/23/16 14:05 Subjective: Patient reports increased left ankle swelling and pain. She has been on her feet more with physical therapy and occupational therapy reports that she keeps the left leg in a dependent position and does not spend much time in bed with her feet up. She denies fevers, chills, cough, dyspnea. Objective: Vital Signs Temp Pulse Resp BP Pulse Ox 36.9 C 66 16 126/82 H 97 11/23/16 07:10 11/23/16 08:38 11/23/16 07:10 11/23/16 08:40 11/23/16 07:10 Laboratory Results 11/22/16 06:00 11/22/16 06:00 11/22/16 11/23/16 11/24/16 05:59 05:59 05:59 Intake Total 440 1320 780 Output Total 1 Balance 440 1319 780 Physical Exam - Physical Exam General Appearance: WD/WN, alert, no apparent distress Respiratory: No respiratory distress, No accessory muscle use Skin: normal color, warm/dry Extremities: other ( Left ankle swollen. Tender to palpation medially and laterally. Has tenderness over the dorsum of the foot with ankle extension.) Neuro/Psych: alert, normal mood/affect, oriented x 3, motor weakness ( Left upper and lower extremities.) ICD10 Worksheet Patient Problems: Problems Problem Status Onset Cerebrovascular accident (CVA) involving right middle cerebral artery territory Acute Left hemiparesis Acute Nephrolithiasis Acute Septic thrombophlebitis of upper extremity Acute - ICD10 Problem Qualifiers (1) Cerebrovascular accident (CVA) involving right middle cerebral artery territory (2) Left hemiparesis (3) Septic thrombophlebitis of upper extremity (4) Nephrolithiasis
--- NOTE | 2016-11-23 17:40 | PCMIDPN ---
Assessment/Plan: # MSSA bacteremia and superficial septic thrombophlebitis cephalic vein L arm. Blood cx cleared at OSH 11-04-16. Cr improved and normalized WBC, AF. Superficial clot L antecubital 95% resolved >IV antibiotics through 12/01, Will review labs 11/29, call ID for additional questions, med list adjusted to stop date 12/01 >Remove PICC line at DC >Weekly CBC, CMP # ARF - resolved, assume 1.2 baseline # leukocytosis: resolved # Removed cephalosporin allergy: tolerating Ancef Subjective: doing well, only c/o is ankle pain denies rash, diarrhea, abd pain appetite good Objective: Vital Signs Temp Pulse Resp BP Pulse Ox 36.9 C 66 16 126/82 H 97 11/23/16 07:10 11/23/16 08:38 11/23/16 07:10 11/23/16 08:40 11/23/16 07:10 Laboratory Results 11/22/16 06:00 11/22/16 06:00 11/22/16 11/23/16 11/24/16 05:59 05:59 05:59 Intake Total 440 1320 780 Output Total 1 Balance 440 1319 780 - Physical Exam General Appearance: alert, no apparent distress, obese, non-toxic EENT: poor dentition Respiratory: coarse breath sounds, No accessory muscle use Cardiac/Chest: regular rate, rhythm Extremities: other (L anticubital very small harden area, no inflammation, no drainage) Skin: No rash Neuro/Psych: alert, normal mood/affect, oriented x 3 - Line/s RUE PICC Lines: No drainage, No erythema ICD10 Worksheet Patient Problems: Problems Problem Status Onset Cerebrovascular accident (CVA) involving right middle cerebral artery territory Acute Left hemiparesis Acute Nephrolithiasis Acute Septic thrombophlebitis of upper extremity Acute
[2016-11-23] MEDS: ATORVASTATIN CALCIUM 40 MG TAB PO SCH (20:35)
[2016-11-23] MEDS: CETIRIZINE 10 MG TAB PO SCH (20:35)
[2016-11-23] MEDS: ZOLPIDEM TARTRATE 5 MG TAB PO SCH (20:35)
[2016-11-24] MEDS: BLUE GOO TP PRN (00:20)
[2016-11-24] MEDS: ACETAMINOPHEN 325 MG TAB PO PRN (01:46)
[2016-11-24] MEDS: BACLOFEN 10 MG TAB PO PRN (01:47)
[2016-11-24] MEDS: CARVEDILOL 3.125 MG TAB PO SCH ×2 (08:10→17:52)
[2016-11-24] MEDS: [UNRECOGNIZED DRUG - OTHER] PO SCH ×2 (08:15→20:58)
[2016-11-24] MEDS: CHOLECALCIFEROL VIT D3 1,000 UNITS TAB PO SCH (08:16)
[2016-11-24] MEDS: ASPIRIN EC 81 MG TAB PO SCH (08:16)
[2016-11-24] MEDS: BACLOFEN 10 MG TAB PO SCH ×3 (08:16→20:50)
[2016-11-24] MEDS: FLUoxetine 10 MG CAP PO SCH (08:17)
[2016-11-24] MEDS: ENOXAPARIN 30 MG/0.3 ML SYR SC SCH ×2 (08:17→20:49)
[2016-11-24] MEDS: FERROUS SULFATE 325 MG TAB PO SCH (08:17)
[2016-11-24] MEDS: MULTIVITAMINS 1 EACH TAB PO SCH (08:18)
[2016-11-24] MEDS: LISINOPRIL 10 MG TAB PO SCH (08:20)
[2016-11-24] MEDS: PANTOPRAZOLE SODIUM 40 MG TAB PO SCH (08:23)
[2016-11-24] MEDS: ceFAZolin 2 GM/DEXTROSE 100 ML IV SCH ×2 (09:04→17:53)
[2016-11-24] MEDS: FLUTICASONE/SALMETER 250/50MCG DISKUS IH SCH ×2 (09:16→20:49)
[2016-11-24] MEDS: FLUTICASONE NASAL 120 SPRAYS/16 GM MDI EACHNARE SCH (09:16)
[2016-11-24] MEDS: [UNRECOGNIZED DRUG - OTHER] IH PRN (09:18)
--- NOTE | 2016-11-24 12:14 | SOAPPROG ---
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 * Left hemiparesis and debility status post CVA. Initial functional independence measure 69 on 11/10/2016; improved to 82 on 11/17/2016, and to 88 on . Standby assist for transfers. Ambulated 31 feet with minimal assistance using a walking staff. Did 3 stairs with 1 rail and contact guard assist. Independent with upper body dressing. Lower body dressing with contact guard assist/standby assist. Contact guard assist/standby assist for toilet transfer, toileting and shower transfer; needs minimal assist with bathing to access her right armpit. Continue physical and occupational therapies to optimize mobility and activities of daily living. * Cognition at baseline. A dressing higher level functions. Continue speech therapy. * Left ankle swelling and pain. X-rays shows old avulsion fracture on the lateral malleolus. Possibly due to abnormal positioning with standing and ambulating. Will initiate ankle splint per PT. * Acute renal insufficiency. No obstruction on retroperitoneal ultrasound. Little improvement after hydration. Possibly due to vancomycin, versus titration of ABBI inhibitor. Possibly due to AIN/ATN with gradual recovery. ABBI inhibitor held. Renal function stable with creatinine 1.2 and GFR 46 on and 11/22/2016. * Hypertension. Blood pressure is elevated on carvedilol 3.125 mg BID and lisinopril 20 mg QD. Initiate hydrochlorothiazide 12.5 mg p.o. q.day. Discontinue carvedilol as indication is unclear Continue to monitor. * Anemia. Gradual worsening throughout her stay. Reticulocytes low, B12 normal, but has iron deficiency on labs 11/22/2016. Hemoccult negative x2. Initiated ferrous sulfate iron replacement; will continue for 1 month. * Insomnia and daytime fatigue. Fatigue may be due to history of methamphetamine. Initiate zolpidem 11/17/2016 at 10 mg. Subsequently reduce to 5 mg scheduled and 5 mg p.r.n. with goal to achieve adequate sleep with smallest possible dose. * Septic thrombophlebitis left antecubital fossa. Currently no signs or symptoms of active infection. Continue cefazolin. Further management per Infectious Disease. Chronic/stable conditions: * Nephrolithiasis. Symptoms seem to have resolved. She has likely passed the 4 mm stone which was seen on abdominal CT in the hospital. DC tamsulosin starting 11/23/2016. * Pain at PICC site. Ultrasound was negative for thrombus. * Leukocytosis with white blood cell count 11.2 on 11/08/2016; increased to 13.38 on 11/15/2016; resolved, 11/22/2016. * Urinary frequency/nocturia. She reports this is baseline for her. * Abnormal liver function tests. Possibly due to atorvastatin. Hepatitis profile negative. LFT elevation resolved 11/15/2016. * Asthma/allergies/cough. Contributing to sleep disturbance. Discussed with her forest engineer, Dr. Almanza. She was receiving monthly immunotherapy injections for seasonal allergies. She also was on Breo which is equivalent to current Advair, albuterol which she has on a p.r.n. basis, nasal fluticasone which is currently ordered, and an [id number] antihistamine. Improved with addition of cetirizine 11/10/2016. * Dysphagia in the hospital which has improved. Continue speech therapy. Advanced to regular diet with thin liquids. * Secondary prevention of CVA with blood pressure control and lipid control, and aspirin. * GERD. Continue pantoprazole. * DM2. HgbA1c was 7.3 in the hospital. No indication for medication at present. D/C BS checks. Advisory Services Associate to advise patient. * Prophylaxis. Continue enoxaparin 30 mg subcutaneous twice daily until mobility improves. Continue SCDs and BRICE hose. Continue pantoprazole for GI prophylaxis on enoxaparin plus aspirin. Attended staffing, 15 minutes. Discussed with case management, dietitian, PT, OT, GEAR TESTER. Patient and her are both living on disability; they sleep in separate rooms. She has been in the basement but she can move to the main level. Continue discharge date of 12/01/2016. Attended family meeting, 30 minutes. Patient and in attendance. Discussed patient's condition and care needs. Questions were answered. Follow-up: PCP Yesenia Menendez after discharge [phone] Victoria early December [address] Noel Rodrigez for cardiac event monitor after discharge [phone] 11/24/16 14:21 Subjective: Continues to complain of left ankle pain and swelling. Sleep continues at baseline, intermittent for the 1st half of the night and then sleeps well for the 2nd half. Has some right neck/shoulder pain. OT has initiated neuro taping of the left neck and shoulder, and left wrist cock-up splint. Denies fevers, chills, cough, dyspnea. Objective: Vital Signs Temp Pulse Resp BP Pulse Ox 36.9 C 73 18 152/92 H 98 11/24/16 06:28 11/24/16 08:10 11/24/16 06:28 11/24/16 08:20 11/24/16 06:28 Laboratory Results 11/22/16 06:00 11/22/16 06:00 11/23/16 11/24/16 11/25/16 05:59 05:59 05:59 Intake Total 1320 1556 Output Total 1 Balance 1319 1556 - Time Spent With Patient Time Spent With Patient: Greater than 35 minutes floor time today, including more than 50% of time in coordination of care and counseling patient and her during staffing meeting and family meeting. ICD10 Worksheet Patient Problems: Problems Problem Status Onset Cerebrovascular accident (CVA) involving right middle cerebral artery territory Acute Left hemiparesis Acute Nephrolithiasis Acute Septic thrombophlebitis of upper extremity Acute - ICD10 Problem Qualifiers (1) Cerebrovascular accident (CVA) involving right middle cerebral artery territory (2) Left hemiparesis (3) Septic thrombophlebitis of upper extremity (4) Nephrolithiasis
[2016-11-24] MEDS: HYDROCHLOROTHIAZIDE 12.5 MG CAP PO SCH (14:33)
[2016-11-24] MEDS: ZOLPIDEM TARTRATE 5 MG TAB PO SCH (20:51)
[2016-11-24] MEDS: CETIRIZINE 10 MG TAB PO SCH (20:51)
[2016-11-24] MEDS: ATORVASTATIN CALCIUM 40 MG TAB PO SCH (20:52)
[2016-11-25] MEDS: BLUE GOO TP PRN (00:33)
[2016-11-25] MEDS: BACLOFEN 10 MG TAB PO PRN (02:54)
[2016-11-25] MEDS: ceFAZolin 2 GM/DEXTROSE 100 ML IV SCH ×2 (05:08→18:12)
[2016-11-25] MEDS: BACLOFEN 10 MG TAB PO SCH ×3 (08:18→20:13)
[2016-11-25] MEDS: [UNRECOGNIZED DRUG - OTHER] PO SCH ×2 (08:32→20:11)
[2016-11-25] MEDS: ASPIRIN EC 81 MG TAB PO SCH (08:32)
[2016-11-25] MEDS: CHOLECALCIFEROL VIT D3 1,000 UNITS TAB PO SCH (08:33)
[2016-11-25] MEDS: FERROUS SULFATE 325 MG TAB PO SCH (08:33)
[2016-11-25] MEDS: ENOXAPARIN 30 MG/0.3 ML SYR SC SCH ×2 (08:33→20:12)
[2016-11-25] MEDS: FLUoxetine 10 MG CAP PO SCH (08:34)
[2016-11-25] MEDS: CARVEDILOL 3.125 MG TAB PO SCH ×2 (08:36→18:11)
[2016-11-25] MEDS: HYDROCHLOROTHIAZIDE 12.5 MG CAP PO SCH (08:37)
[2016-11-25] MEDS: MULTIVITAMINS 1 EACH TAB PO SCH (08:37)
[2016-11-25] MEDS: LISINOPRIL 10 MG TAB PO SCH (08:37)
[2016-11-25] MEDS: PANTOPRAZOLE SODIUM 40 MG TAB PO SCH (08:38)
[2016-11-25] MEDS: [UNRECOGNIZED DRUG - OTHER] IH PRN (09:46)
--- NOTE | 2016-11-25 09:46 | SOAPPROG ---
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 Today's update: Considerable low mood and feeling overwhelmed, likely complicated by history of substance abuse and adjustment to disability. Discussed case at length with Dr. Deng who has been managing her primarily. Plan to increase fluoxetine 20 mg daily, trial of low-dose gabapentin, trialing trazodone 25 mg p.o. at bedtime with an extra 25 mg available, if this does not work we would try lorazepam 0.25 mg p.o. at bedtime. Plan to stop the Ambien. Unclear why oxybutynin was not helpful, but no further plan to pharmacologically address her frequent urination. Regarding wheelchair need, she has mobility limitation of significantly impairs 1 or more mobility related ADL in her home, and functional mobility deficit cannot be resolved with a walker cane, the patient's home is adequate for accessing rooms, maneuvering space in surfaces, and the wheelchair will significantly improve her ability to participate in mobility related ADLs and the patient will use it regularly, and the patient has not expressed and unwillingness to use the wheelchair and the patient has sufficient physical and mental ability to safely use the wheelchair. A total of 35 minutes was spent on the floor in the care of the patient, the majority of which was spent in the counseling and coordination of care regarding proper sleep management, and trying to simplify her medication regimen with discussion with Dr. Deng. * Left hemiparesis and debility status post CVA. Initial functional independence measure 69 on 11/10/2016; improved to 82 on 11/17/2016, and to 88 on . Standby assist for transfers. Ambulated 31 feet with minimal assistance using a walking staff. Did 3 stairs with 1 rail and contact guard assist. Independent with upper body dressing. Lower body dressing with contact guard assist/standby assist. Contact guard assist/standby assist for toilet transfer, toileting and shower transfer; needs minimal assist with bathing to access her right armpit. Continue physical and occupational therapies to optimize mobility and activities of daily living. Fluoxetine for motor recovery. * Cognition at baseline. A dressing higher level functions. Continue speech therapy. * Left ankle swelling and pain. X-rays shows old avulsion fracture on the lateral malleolus. Possibly due to abnormal positioning with standing and ambulating. Will initiate ankle splint per PT. Likely also component of neuropathic pain, trialing gabapentin starting at 100 mg p.o. three times daily. * Acute renal insufficiency. No obstruction on retroperitoneal ultrasound. Little improvement after hydration. Possibly due to vancomycin, versus titration of ABBI inhibitor. Possibly due to AIN/ATN with gradual recovery. ABBI inhibitor held. Renal function stable with creatinine 1.2 and GFR 46 on and 11/22/2016. * Hypertension. Blood pressure is elevated on carvedilol 3.125 mg BID and lisinopril 20 mg QD. Initiate hydrochlorothiazide 12.5 mg p.o. q.day. Discontinue carvedilol as indication is unclear Continue to monitor. * Anemia. Gradual worsening throughout her stay. Reticulocytes low, B12 normal, but has iron deficiency on labs 11/22/2016. Hemoccult negative x2. Initiated ferrous sulfate iron replacement; will continue for 1 month. * Insomnia and daytime fatigue. Fatigue may be due to history of methamphetamine. Initiate zolpidem 11/17/2016 at 10 mg. Subsequently reduce to 5 mg scheduled and 5 mg p.r.n. with goal to achieve adequate sleep with smallest possible dose, but this was also not helpful. Plan to try trazodone 25 mg p.o. at bedtime with an extra 25 mg p.o. at bedtime p.r.n. available. If this is not helpful with then try lorazepam 0.25 mg p.o. at bedtime. * Septic thrombophlebitis left antecubital fossa. Currently no signs or symptoms of active infection. Continue cefazolin. Further management per Infectious Disease. * Depression and adjustment to disability: Increase the fluoxetine to 20 mg p.o. q.day. Continue this also for motor recovery. Chronic/stable conditions: * Nephrolithiasis. Symptoms seem to have resolved. She has likely passed the 4 mm stone which was seen on abdominal CT in the hospital. DC tamsulosin starting 11/23/2016. * Pain at PICC site. Ultrasound was negative for thrombus. * Leukocytosis with white blood cell count 11.2 on 11/08/2016; increased to 13.38 on 11/15/2016; resolved, 11/22/2016. * Urinary frequency/nocturia. She reports this is baseline for her. * Abnormal liver function tests. Possibly due to atorvastatin. Hepatitis profile negative. LFT elevation resolved 11/15/2016. * Asthma/allergies/cough. Contributing to sleep disturbance. Discussed with her rehabilitation inspector, Dr. Almanza. She was receiving monthly immunotherapy injections for seasonal allergies. She also was on Breo which is equivalent to current Advair, albuterol which she has on a p.r.n. basis, nasal fluticasone which is currently ordered, and an [id number] antihistamine. Improved with addition of cetirizine 11/10/2016. * Dysphagia in the hospital which has improved. Continue speech therapy. Advanced to regular diet with thin liquids. * Secondary prevention of CVA with blood pressure control and lipid control, and aspirin. * GERD. Continue pantoprazole. * DM2. HgbA1c was 7.3 in the hospital. No indication for medication at present. D/C BS checks. Creative Resource Manager to advise patient. * Prophylaxis. Continue enoxaparin 30 mg subcutaneous twice daily until mobility improves. Continue SCDs and BRICE hose. Continue pantoprazole for GI prophylaxis on enoxaparin plus aspirin. Patient and her are both living on disability; they sleep in separate rooms. She has been in the basement but she can move to the main level. Continue discharge date of 12/01/2016. Attended family meeting, 30 minutes. Patient and in attendance. Discussed patient's condition and care needs. Questions were answered. Follow-up: PCP Yesenia Menendez after discharge [phone] Victoria early December [address] Noel Rodrigez for cardiac event monitor after discharge 11/18/16 15:51 11/19/16 09:10 11/19/16 09:20 11/20/16 09:38 11/21/16 10:29 11/25/16 09:41 11/25/16 12:24 11/25/16 12:30 Subjective: Chief complaint: Ongoing foot pain and low mood /anxiety No acute events overnight. Patient endorses poor sleep, sleeping approximately 2 hours last night per her report. She has difficulty going to sleep because of anxiety, has frequent awakening because of urinary frequency and anxiety, and wakes up feeling anxious. She has tried lorazepam at night previously for anxiety and that has been helpful. She does not think the Ambien is helpful at this point, okay with increasing the fluoxetine to 20 mg daily. She notes that the urinary frequency at night is worse on hydrochlorothiazide. Also she endorses ongoing foot pain on the left, abnormal sensations including feeling of cold, also feeling cramping sensations without objective signs of cramping. Otherwise she denies any new shortness of breath or chest pain, no new numbness, tingling, or weakness. Objective: Vital Signs Temp Pulse Resp BP Pulse Ox 36.7 C 64 20 136/93 H 95 11/25/16 05:46 11/25/16 08:36 11/25/16 05:46 11/25/16 08:37 11/25/16 05:46 Laboratory Results 11/22/16 06:00 11/22/16 06:00 11/24/16 11/25/16 11/26/16 05:59 05:59 05:59 Intake Total 1556 776 Output Total 800 Balance 1556 -24 Physical Exam - Physical Exam General Appearance: WD/WN, alert, moderate distress EENT: other ( Conjunctiva injected), No scleral icterus (R), No scleral icterus (L) Respiratory: No respiratory distress, No accessory muscle use Cardiac/Chest: normal peripheral pulses, regular rate, rhythm Skin: normal color, warm/dry, No cyanosis Extremities: swelling ( possibly very mild swelling on the left compared to the right, appears more consistent with dependent edema), No non-tender Neuro/Psych: alert, depressed affect ( tearful, no suicidal ideation) ICD10 Worksheet Patient Problems: Problems Problem Status Onset Cerebrovascular accident (CVA) involving right middle cerebral artery territory Acute Left hemiparesis Acute Nephrolithiasis Acute Septic thrombophlebitis of upper extremity Acute
[2016-11-25] MEDS: FLUTICASONE NASAL 120 SPRAYS/16 GM MDI EACHNARE SCH ×2 (09:50→20:11)
[2016-11-25] MEDS: FLUTICASONE/SALMETER 250/50MCG DISKUS IH SCH ×2 (09:52→20:21)
[2016-11-25] MEDS ORDERED: FLUoxetine 10 MG CAP PO ONE (12:32)
[2016-11-25] MEDS ORDERED: traZODone 50 MG TAB PO PRN (12:33)
[2016-11-25] MEDS ORDERED: LORazepam 0.5 MG TAB PO PRN (12:35)
[2016-11-25] MEDS: GABAPENTIN 100 MG CAP PO SCH ×2 (16:24→20:12)
[2016-11-25] MEDS: CETIRIZINE 10 MG TAB PO SCH (20:12)
[2016-11-25] MEDS: ATORVASTATIN CALCIUM 40 MG TAB PO SCH (20:12)
[2016-11-25] MEDS: traZODone 50 MG TAB PO SCH (20:13)
[2016-11-26] MEDS: BACLOFEN 10 MG TAB PO PRN (00:46)
[2016-11-26] MEDS: BLUE GOO TP PRN (00:46)
[2016-11-26] MEDS: ceFAZolin 2 GM/DEXTROSE 100 ML IV SCH ×2 (05:25→17:29)
[2016-11-26] MEDS: MULTIVITAMINS 1 EACH TAB PO SCH (08:51)
[2016-11-26] MEDS: LISINOPRIL 10 MG TAB PO SCH (08:51)
[2016-11-26] MEDS: PANTOPRAZOLE SODIUM 40 MG TAB PO SCH (08:51)
[2016-11-26] MEDS: BACLOFEN 10 MG TAB PO SCH ×3 (08:52→21:21)
[2016-11-26] MEDS: CARVEDILOL 3.125 MG TAB PO SCH ×2 (08:52→17:29)
[2016-11-26] MEDS: GABAPENTIN 100 MG CAP PO SCH ×3 (08:52→21:21)
[2016-11-26] MEDS: FERROUS SULFATE 325 MG TAB PO SCH (08:52)
[2016-11-26] MEDS: HYDROCHLOROTHIAZIDE 12.5 MG CAP PO SCH (08:52)
[2016-11-26] MEDS: FLUoxetine 20 MG CAP PO SCH (08:52)
[2016-11-26] MEDS: CHOLECALCIFEROL VIT D3 1,000 UNITS TAB PO SCH (08:52)
[2016-11-26] MEDS: ASPIRIN EC 81 MG TAB PO SCH (08:52)
[2016-11-26] MEDS: FLUTICASONE NASAL 120 SPRAYS/16 GM MDI EACHNARE SCH (08:53)
[2016-11-26] MEDS: ENOXAPARIN 30 MG/0.3 ML SYR SC SCH ×2 (08:53→21:22)
[2016-11-26] MEDS: [UNRECOGNIZED DRUG - OTHER] PO SCH ×2 (08:54→21:22)
[2016-11-26] MEDS: [UNRECOGNIZED DRUG - OTHER] IH PRN (08:55)
[2016-11-26] MEDS: FLUTICASONE/SALMETER 250/50MCG DISKUS IH SCH ×2 (08:55→21:21)
--- NOTE | 2016-11-26 09:22 | SOAPPROG ---
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 Today's update: Patient doing much better today. She is not tearful, mood is much improved, she says she slept well and nursing noted that she slept over 8 hours. Pain is also greatly improved in her foot. It appears that the plan started yesterday with her medications was affective, she only complains of mild headache today without neuro changes. Treat headache symptomatically monitor, remainder of plan is unchanged. continues to make neurological improvements. * Left hemiparesis and debility status post CVA. Initial functional independence measure 69 on 11/10/2016; improved to 82 on 11/17/2016, and to 88 on . Standby assist for transfers. Ambulated 31 feet with minimal assistance using a walking staff. Did 3 stairs with 1 rail and contact guard assist. Independent with upper body dressing. Lower body dressing with contact guard assist/standby assist. Contact guard assist/standby assist for toilet transfer, toileting and shower transfer; needs minimal assist with bathing to access her right armpit. Continue physical and occupational therapies to optimize mobility and activities of daily living. Fluoxetine for motor recovery. * Cognition at baseline. A dressing higher level functions. Continue speech therapy. * Left ankle swelling and pain. X-rays shows old avulsion fracture on the lateral malleolus. Possibly due to abnormal positioning with standing and ambulating. Will initiate ankle splint per PT. Likely also component of neuropathic pain, gabapentin at 100 mg p.o. three times daily, Which was helpful * Acute renal insufficiency. No obstruction on retroperitoneal ultrasound. Little improvement after hydration. Possibly due to vancomycin, versus titration of ABBI inhibitor. Possibly due to AIN/ATN with gradual recovery. ABBI inhibitor held. Renal function stable with creatinine 1.2 and GFR 46 on and 11/22/2016. * Hypertension. Blood pressure is elevated on carvedilol 3.125 mg BID and lisinopril 20 mg QD. Initiate hydrochlorothiazide 12.5 mg p.o. q.day. Discontinue carvedilol as indication is unclear Continue to monitor. * Anemia. Gradual worsening throughout her stay. Reticulocytes low, B12 normal, but has iron deficiency on labs 11/22/2016. Hemoccult negative x2. Initiated ferrous sulfate iron replacement; will continue for 1 month. * Insomnia and daytime fatigue. Fatigue may be due to history of methamphetamine. Initiate zolpidem 11/17/2016 at 10 mg. Subsequently reduce to 5 mg scheduled and 5 mg p.r.n. with goal to achieve adequate sleep with smallest possible dose, but this was also not helpful. Plan to try trazodone 25 mg p.o. at bedtime with an extra 25 mg p.o. at bedtime p.r.n. available. If this is not helpful with then try lorazepam 0.25 mg p.o. at bedtime. update on 11/26/2016 is that she only needed 25 mg of trazodone at night, no p.r.n. meds were needed. * Septic thrombophlebitis left antecubital fossa. Currently no signs or symptoms of active infection. Continue cefazolin. Further management per Infectious Disease. * Depression and adjustment to disability: Increased the fluoxetine to 20 mg p.o. q.day On 11/25/2016. Continue this also for motor recovery. Chronic/stable conditions: * Nephrolithiasis. Symptoms seem to have resolved. She has likely passed the 4 mm stone which was seen on abdominal CT in the hospital. DC tamsulosin starting 11/23/2016. * Pain at PICC site. Ultrasound was negative for thrombus. * Leukocytosis with white blood cell count 11.2 on 11/08/2016; increased to 13.38 on 11/15/2016; resolved, 11/22/2016. * Urinary frequency/nocturia. She reports this is baseline for her. * Abnormal liver function tests. Possibly due to atorvastatin. Hepatitis profile negative. LFT elevation resolved 11/15/2016. * Asthma/allergies/cough. Contributing to sleep disturbance. Discussed with her machine gun mechanic, Dr. Almanza. She was receiving monthly immunotherapy injections for seasonal allergies. She also was on Breo which is equivalent to current Advair, albuterol which she has on a p.r.n. basis, nasal fluticasone which is currently ordered, and an [id number] antihistamine. Improved with addition of cetirizine 11/10/2016. * Dysphagia in the hospital which has improved. Continue speech therapy. Advanced to regular diet with thin liquids. * Secondary prevention of CVA with blood pressure control and lipid control, and aspirin. * GERD. Continue pantoprazole. * DM2. HgbA1c was 7.3 in the hospital. No indication for medication at present. D/C BS checks. Window Glass Cutter Off to advise patient. * Prophylaxis. Continue enoxaparin 30 mg subcutaneous twice daily until mobility improves. Continue SCDs and BRICE hose. Continue pantoprazole for GI prophylaxis on enoxaparin plus aspirin. Patient and her are both living on disability; they sleep in separate rooms. She has been in the basement but she can move to the main level. Continue discharge date of 12/01/2016. Attended family meeting, 30 minutes. Patient and in attendance. Discussed patient's condition and care needs. Questions were answered. Follow-up: PCP Yesenia Menendez after discharge [phone] Victoria early December [address] Noel Rodrigez for cardiac event monitor after discharge 11/18/16 15:51 11/19/16 09:10 11/19/16 09:20 11/20/16 09:38 11/21/16 10:29 11/25/16 09:41 11/25/16 12:24 11/25/16 12:30 11/26/16 09:18 Subjective: Chief complaint: Headache, depressed mood, insomnia, and ankle pain No acute events overnight. The patient endorses a mild headache today mostly on the left side, no vision changes, no new nausea or vomiting, no new numbness , tingling, or weakness, no shortness of breath or chest pain. She knows the headache when she woke up this morning, but it did not awaken her. Additionally she notes she is in a good mood, no suicidal ideation in much better spirits. She slept much better, a total of approximately 8 hours. She denies that the pain in her foot is worse in fact notes that it is much better today. She is also wearing a brace. She has no concerns today and is quite happy with the current medication regimen. Of note, she was switched to trazodone for sleep, started a low-dose gabapentin for pain, and fluoxetine was increased to 20 mg p.o. daily. Objective: Vital Signs Temp Pulse Resp BP Pulse Ox 36.7 C 75 15 130/80 H 94 11/26/16 08:00 11/26/16 08:00 11/26/16 08:00 11/26/16 08:00 11/26/16 08:00 Laboratory Results 11/22/16 06:00 11/22/16 06:00 11/25/16 11/26/16 11/27/16 05:59 05:59 05:59 Intake Total 776 550 Output Total 800 300 Balance -24 250 Physical Exam - Physical Exam General Appearance: WD/WN, alert, no apparent distress EENT: No scleral icterus (R), No scleral icterus (L) Respiratory: No respiratory distress, No accessory muscle use Cardiac/Chest: normal peripheral pulses, regular rate, rhythm Skin: normal color, warm/dry, No cyanosis Extremities: pedal edema ( Mild, 1+) Neuro/Psych: alert, normal mood/affect, other ( continued hemiparesis, unchanged ) ICD10 Worksheet Patient Problems: Problems Problem Status Onset Cerebrovascular accident (CVA) involving right middle cerebral artery territory Acute Left hemiparesis Acute Nephrolithiasis Acute Septic thrombophlebitis of upper extremity Acute
[2016-11-26] MEDS: ACETAMINOPHEN 325 MG TAB PO PRN (09:24)
[2016-11-26] MEDS: CETIRIZINE 10 MG TAB PO SCH (21:21)
[2016-11-26] MEDS: ATORVASTATIN CALCIUM 40 MG TAB PO SCH (21:21)
[2016-11-26] MEDS: traZODone 50 MG TAB PO SCH (21:21)
[2016-11-27] MEDS: TUSSIN DM PO PRN (01:15)
[2016-11-27] MEDS: BACLOFEN 10 MG TAB PO PRN (03:07)
[2016-11-27] MEDS: ceFAZolin 2 GM/DEXTROSE 100 ML IV SCH ×2 (06:14→17:40)
[2016-11-27] MEDS: LISINOPRIL 10 MG TAB PO SCH (08:51)
[2016-11-27] MEDS: BACLOFEN 10 MG TAB PO SCH ×3 (08:51→20:47)
[2016-11-27] MEDS: CARVEDILOL 3.125 MG TAB PO SCH ×2 (08:51→17:40)
[2016-11-27] MEDS: ASPIRIN EC 81 MG TAB PO SCH (08:51)
[2016-11-27] MEDS: GABAPENTIN 100 MG CAP PO SCH ×3 (08:51→20:47)
[2016-11-27] MEDS: ENOXAPARIN 30 MG/0.3 ML SYR SC SCH ×2 (08:51→20:47)
[2016-11-27] MEDS: HYDROCHLOROTHIAZIDE 12.5 MG CAP PO SCH (08:52)
[2016-11-27] MEDS: MULTIVITAMINS 1 EACH TAB PO SCH (08:52)
[2016-11-27] MEDS: PANTOPRAZOLE SODIUM 40 MG TAB PO SCH (08:52)
[2016-11-27] MEDS: FLUoxetine 20 MG CAP PO SCH (08:52)
[2016-11-27] MEDS: FERROUS SULFATE 325 MG TAB PO SCH (08:52)
[2016-11-27] MEDS: [UNRECOGNIZED DRUG - OTHER] PO SCH ×2 (08:52→20:49)
[2016-11-27] MEDS: CHOLECALCIFEROL VIT D3 1,000 UNITS TAB PO SCH (08:52)
[2016-11-27] MEDS: FLUTICASONE NASAL 120 SPRAYS/16 GM MDI EACHNARE SCH (08:53)
[2016-11-27] MEDS: FLUTICASONE/SALMETER 250/50MCG DISKUS IH SCH ×2 (08:53→20:50)
[2016-11-27] MEDS: [UNRECOGNIZED DRUG - OTHER] IH PRN (08:57)
--- NOTE | 2016-11-27 09:47 | SOAPPROG ---
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 Today's update: Reporting polyarthralgias, B Shoulder pain, LBP, R ankle pain are primary (less so L splinted ankle). No significant change from baseline. PT believes it may be from switch to walker staff. * Left hemiparesis and debility status post CVA. Initial functional independence measure 69 on 11/10/2016; improved to 82 on 11/17/2016, and to 88 on . Standby assist for transfers. Ambulated 31 feet with minimal assistance using a walking staff. Did 3 stairs with 1 rail and contact guard assist. Independent with upper body dressing. Lower body dressing with contact guard assist/standby assist. Contact guard assist/standby assist for toilet transfer, toileting and shower transfer; needs minimal assist with bathing to access her right armpit. Continue physical and occupational therapies to optimize mobility and activities of daily living. Fluoxetine for motor recovery. * Cognition at baseline. A dressing higher level functions. Continue speech therapy. * Left ankle swelling and pain. X-rays shows old avulsion fracture on the lateral malleolus. Possibly due to abnormal positioning with standing and ambulating. Will initiate ankle splint per PT. Likely also component of neuropathic pain, gabapentin at 100 mg p.o. three times daily, Which was helpful * Acute renal insufficiency. No obstruction on retroperitoneal ultrasound. Little improvement after hydration. Possibly due to vancomycin, versus titration of ABBI inhibitor. Possibly due to AIN/ATN with gradual recovery. ABBI inhibitor held. Renal function stable with creatinine 1.2 and GFR 46 on and 11/22/2016. * Hypertension. Cont carvedilol 3.125 mg BID and lisinopril 20 mg QD, hydrochlorothiazide 12.5 mg p.o. q.day. * Anemia. Gradual worsening throughout her stay. Reticulocytes low, B12 normal, but has iron deficiency on labs 11/22/2016. Hemoccult negative x2. Initiated ferrous sulfate iron replacement; will continue for 1 month. * Insomnia and daytime fatigue. Fatigue may be due to history of methamphetamine. Initiate zolpidem 11/17/2016 at 10 mg. Subsequently reduce to 5 mg scheduled and 5 mg p.r.n. with goal to achieve adequate sleep with smallest possible dose, but this was also not helpful. Plan to try trazodone 25 mg p.o. at bedtime with an extra 25 mg p.o. at bedtime p.r.n. available. If this is not helpful with then try lorazepam 0.25 mg p.o. at bedtime. update on 11/26/2016 is that she only needed 25 mg of trazodone at night, no p.r.n. meds were needed. * Septic thrombophlebitis left antecubital fossa. Currently no signs or symptoms of active infection. Continue cefazolin. Further management per Infectious Disease. * Depression and adjustment to disability: Increased the fluoxetine to 20 mg p.o. q.day On 11/25/2016. Continue this also for motor recovery. Chronic/stable conditions: * Nephrolithiasis. Symptoms seem to have resolved. She has likely passed the 4 mm stone which was seen on abdominal CT in the hospital. DC tamsulosin starting 11/23/2016. * Pain at PICC site. Ultrasound was negative for thrombus. * Leukocytosis with white blood cell count 11.2 on 11/08/2016; increased to 13.38 on 11/15/2016; resolved, 11/22/2016. * Urinary frequency/nocturia. She reports this is baseline for her. * Abnormal liver function tests. Possibly due to atorvastatin. Hepatitis profile negative. LFT elevation resolved 11/15/2016. * Asthma/allergies/cough. Contributing to sleep disturbance. Discussed with her territory business manager, Dr. Almanza. She was receiving monthly immunotherapy injections for seasonal allergies. She also was on Breo which is equivalent to current Advair, albuterol which she has on a p.r.n. basis, nasal fluticasone which is currently ordered, and an qumy-tao-auuwaxp antihistamine. Improved with addition of cetirizine 11/10/2016. * Dysphagia in the hospital which has improved. Continue speech therapy. Advanced to regular diet with thin liquids. * Secondary prevention of CVA with blood pressure control and lipid control, and aspirin. * GERD. Continue pantoprazole. * DM2. HgbA1c was 7.3 in the hospital. No indication for medication at present. D/C BS checks. Car Body Designer to advise patient. * Prophylaxis. Continue enoxaparin 30 mg subcutaneous twice daily until mobility improves. Continue SCDs and BRICE hose. Continue pantoprazole for GI prophylaxis on enoxaparin plus aspirin. Continue discharge date of 12/01/2016. Plan: Cont Dr Deng's rehab treatment plan 11/27/16 09:47 Subjective: No new problems or C/O's C/O's of fatigue and diffuse aching joints, limiting endurance with therapies No F/C/CP/SOB/N/V/D/C Objective: Vital Signs Temp Pulse Resp BP Pulse Ox 37.2 C 76 16 114/77 92 11/27/16 06:47 11/27/16 08:51 11/27/16 06:47 11/27/16 08:52 11/27/16 06:47 Laboratory Results 11/22/16 06:00 11/22/16 06:00 11/26/16 11/27/16 11/28/16 05:59 05:59 05:59 Intake Total 550 536 300 Output Total 300 Balance 250 536 300 Physical Exam - Physical Exam General Appearance: alert, no apparent distress Neck: supple Respiratory: lungs clear Cardiac/Chest: regular rate, rhythm Skin: normal color, warm/dry Extremities: No normal range of motion (R ankle and R Shoulder restricted), No calf tenderness Neuro/Psych: alert, normal mood/affect, oriented x 3 ICD10 Worksheet Patient Problems: Problems Problem Status Onset Cerebrovascular accident (CVA) involving right middle cerebral artery territory Acute Left hemiparesis Acute Nephrolithiasis Acute Septic thrombophlebitis of upper extremity Acute
[2016-11-27] MEDS: ATORVASTATIN CALCIUM 40 MG TAB PO SCH (20:47)
[2016-11-27] MEDS: CETIRIZINE 10 MG TAB PO SCH (20:47)
[2016-11-27] MEDS: traZODone 50 MG TAB PO SCH (20:47)
[2016-11-28] MEDS: BACLOFEN 10 MG TAB PO PRN ×4 (02:41→18:58)
[2016-11-28] MEDS: ceFAZolin 2 GM/DEXTROSE 100 ML IV SCH ×2 (06:20→18:56)
[2016-11-28] MEDS: BLUE GOO TP PRN (06:20)
[2016-11-28] MEDS: ASPIRIN EC 81 MG TAB PO SCH (08:11)
[2016-11-28] MEDS: FERROUS SULFATE 325 MG TAB PO SCH (08:11)
[2016-11-28] MEDS: FLUTICASONE NASAL 120 SPRAYS/16 GM MDI EACHNARE SCH (08:12)
[2016-11-28] MEDS: ENOXAPARIN 30 MG/0.3 ML SYR SC SCH ×2 (08:12→20:41)
[2016-11-28] MEDS: [UNRECOGNIZED DRUG - OTHER] PO SCH ×2 (08:12→20:44)
[2016-11-28] MEDS: CARVEDILOL 3.125 MG TAB PO SCH ×2 (08:12→17:49)
[2016-11-28] MEDS: FLUTICASONE/SALMETER 250/50MCG DISKUS IH SCH ×2 (08:12→20:44)
[2016-11-28] MEDS: CHOLECALCIFEROL VIT D3 1,000 UNITS TAB PO SCH (08:12)
[2016-11-28] MEDS: PANTOPRAZOLE SODIUM 40 MG TAB PO SCH (08:13)
[2016-11-28] MEDS: HYDROCHLOROTHIAZIDE 12.5 MG CAP PO SCH (08:13)
[2016-11-28] MEDS: [UNRECOGNIZED DRUG - OTHER] IH PRN (08:13)
[2016-11-28] MEDS: MULTIVITAMINS 1 EACH TAB PO SCH (08:13)
[2016-11-28] MEDS: LISINOPRIL 10 MG TAB PO SCH (08:13)
[2016-11-28] MEDS: GABAPENTIN 100 MG CAP PO SCH ×3 (08:14→20:41)
[2016-11-28] MEDS: FLUoxetine 20 MG CAP PO SCH (08:14)
[2016-11-28] MEDS: BACLOFEN 10 MG TAB PO SCH ×2 (10:06→16:50)
--- NOTE | 2016-11-28 11:11 | SOAPPROG ---
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 Today's update: Still reporting polyarthralgias, but significantly better today: B Shoulder pain, LBP, R ankle pain are primary (less so L splinted ankle) . * Left hemiparesis and debility status post CVA. Initial functional independence measure 69 on 11/10/2016; improved to 82 on 11/17/2016, and to 88 on . Standby assist for transfers. Ambulated 31 feet with minimal assistance using a walking staff. Did 3 stairs with 1 rail and contact guard assist. Independent with upper body dressing. Lower body dressing with contact guard assist/standby assist. Contact guard assist/standby assist for toilet transfer, toileting and shower transfer; needs minimal assist with bathing to access her right armpit. Continue physical and occupational therapies to optimize mobility and activities of daily living. Fluoxetine for motor recovery. * Cognition at baseline. A dressing higher level functions. Continue speech therapy. * Left ankle swelling and pain. X-rays shows old avulsion fracture on the lateral malleolus. Possibly due to abnormal positioning with standing and ambulating. Will initiate ankle splint per PT. Likely also component of neuropathic pain, gabapentin at 100 mg p.o. three times daily, Which was helpful * Acute renal insufficiency. No obstruction on retroperitoneal ultrasound. Little improvement after hydration. Possibly due to vancomycin, versus titration of ABBI inhibitor. Possibly due to AIN/ATN with gradual recovery. ABBI inhibitor held. Renal function stable with creatinine 1.2 and GFR 46 on and 11/22/2016. * Hypertension. Cont carvedilol 3.125 mg BID and lisinopril 20 mg QD, hydrochlorothiazide 12.5 mg p.o. q.day. * Anemia. Gradual worsening throughout her stay. Reticulocytes low, B12 normal, but has iron deficiency on labs 11/22/2016. Hemoccult negative x2. Initiated ferrous sulfate iron replacement; will continue for 1 month. * Insomnia and daytime fatigue. Fatigue may be due to history of methamphetamine. Initiate zolpidem 11/17/2016 at 10 mg. Subsequently reduce to 5 mg scheduled and 5 mg p.r.n. with goal to achieve adequate sleep with smallest possible dose, but this was also not helpful. Plan to try trazodone 25 mg p.o. at bedtime with an extra 25 mg p.o. at bedtime p.r.n. available. If this is not helpful with then try lorazepam 0.25 mg p.o. at bedtime. update on 11/26/2016 is that she only needed 25 mg of trazodone at night, no p.r.n. meds were needed. * Septic thrombophlebitis left antecubital fossa. Currently no signs or symptoms of active infection. Continue cefazolin. Further management per Infectious Disease. * Depression and adjustment to disability: Increased the fluoxetine to 20 mg p.o. q.day On 11/25/2016. Continue this also for motor recovery. Chronic/stable conditions: * Nephrolithiasis. Symptoms seem to have resolved. She has likely passed the 4 mm stone which was seen on abdominal CT in the hospital. DC tamsulosin starting 11/23/2016. * Pain at PICC site. Ultrasound was negative for thrombus. * Leukocytosis with white blood cell count 11.2 on 11/08/2016; increased to 13.38 on 11/15/2016; resolved, 11/22/2016. * Urinary frequency/nocturia. She reports this is baseline for her. * Abnormal liver function tests. Possibly due to atorvastatin. Hepatitis profile negative. LFT elevation resolved 11/15/2016. * Asthma/allergies/cough. Contributing to sleep disturbance. Discussed with her production miner, Dr. Almanza. She was receiving monthly immunotherapy injections for seasonal allergies. She also was on Breo which is equivalent to current Advair, albuterol which she has on a p.r.n. basis, nasal fluticasone which is currently ordered, and an [id number] antihistamine. Improved with addition of cetirizine 11/10/2016. * Dysphagia in the hospital which has improved. Continue speech therapy. Advanced to regular diet with thin liquids. * Secondary prevention of CVA with blood pressure control and lipid control, and aspirin. * GERD. Continue pantoprazole. * DM2. HgbA1c was 7.3 in the hospital. No indication for medication at present. D/C BS checks. Complaint Evaluation Supervisor to advise patient. * Prophylaxis. Continue enoxaparin 30 mg subcutaneous twice daily until mobility improves. Continue SCDs and BRICE hose. Continue pantoprazole for GI prophylaxis on enoxaparin plus aspirin. Continue discharge date of 12/01/2016. Plan: Cont Dr Deng's rehab treatment plan 11/28/16 11:09 Subjective: No new C/O's Rehabilitation Program Coordinator F/C/CP/SOB/N/V/D/C Objective: Vital Signs Temp Pulse Resp BP Pulse Ox 36.1 C 71 16 110/75 93 11/28/16 07:03 11/28/16 08:12 11/28/16 07:03 11/28/16 08:13 11/28/16 07:03 Laboratory Results 11/22/16 06:00 11/22/16 06:00 11/27/16 11/28/16 11/29/16 05:59 05:59 05:59 Intake Total 536 1760 236 Balance 536 1760 236 Physical Exam - Physical Exam General Appearance: alert, no apparent distress Neck: supple Respiratory: lungs clear Cardiac/Chest: regular rate, rhythm Skin: normal color, warm/dry Extremities: pedal edema (minimal), No calf tenderness Neuro/Psych: alert, normal mood/affect, oriented x 3, motor weakness, sensory deficit, other (no acute changes) ICD10 Worksheet Patient Problems: Problems Problem Status Onset Cerebrovascular accident (CVA) involving right middle cerebral artery territory Acute Left hemiparesis Acute Nephrolithiasis Acute Septic thrombophlebitis of upper extremity Acute
[2016-11-28] MEDS: traZODone 50 MG TAB PO SCH (20:41)
[2016-11-28] MEDS: ATORVASTATIN CALCIUM 40 MG TAB PO SCH (20:41)
[2016-11-28] MEDS: CETIRIZINE 10 MG TAB PO SCH (20:41)
[2016-11-28] MEDS: TUSSIN DM PO PRN (22:54)
[2016-11-29] MEDS: BACLOFEN 10 MG TAB PO PRN (01:00)
[2016-11-29] MEDS: BACLOFEN 10 MG TAB PO SCH ×4 (01:03→22:30)
[2016-11-29] MEDS: ceFAZolin 2 GM/DEXTROSE 100 ML IV SCH ×2 (06:21→17:47)
[2016-11-29 07:32] LABS: % IMMATURE GRANULYOCYTES 0.3 % (0.0-1.1); ABSOLUTE IMMATURE GRANULOCYTES 0.02 10^3/uL (0.00-0.10); ADD DIFF? NO; ADD MORPH? NO; ADD SCAN? NO; ATYPICAL LYMPHOCYTE FLAG 10 (0-99); FRAGMENT RBC FLAG 0 (0-99); HEMATOCRIT 31.4 % (38.0-47.0); HEMOGLOBIN 10.3 g/dL (12.6-16.3); LEFT SHIFT FLG 0 (0-99); LIPEMIA HEMOLYSIS FLAG 80 (0-99); MEAN CELL HEMOGLOBIN 29.1 pg (27.9-34.1); MEAN CELL HEMOGLOBIN CONCENTR. 32.8 g/dL (32.4-36.7); MEAN CELL VOLUME 88.7 fL (81.5-99.8); MEAN PLATELET VOLUME 9.6 fL (8.7-11.7); PLATELET CLUMPS FLAG 20 (0-99); PLATELET COUNT 222 10^3/uL (150-400); RED BLOOD CELL COUNT 3.54 10^6/uL (4.18-5.33); RED CELL DISTRIBUTION WIDTH 14.1 % (11.5-15.2)
[2016-11-29 07:58] LABS: ALANINE AMINOTRANSFERASE 28 IU/L (9-52); ALBUMIN 3.1 g/dL (3.5-5.0); ALKALINE PHOSPHATASE 46 IU/L (38-126); ANION GAP 8 mEq/L (8-16); ASPARTATE AMINOTRANSFERASE 27 IU/L (14-46); BILIRUBIN,TOTAL 0.3 mg/dL (0.1-1.4); CALCIUM 9.5 mg/dL (8.5-10.4); CARBON DIOXIDE 26 mEq/l (22-31); CHLORIDE 102 mEq/L (97-110); CREATININE 1.2 mg/dL (0.6-1.0); GLOMERULAR FILTRATION RATE 46; GLUCOSE 110 mg/dL (70-100); POTASSIUM 4.3 mEq/L (3.5-5.2); SODIUM 136 mEq/L (134-144); TOTAL PROTEIN 5.7 g/dL (6.3-8.2)
[2016-11-29] MEDS: FLUTICASONE/SALMETER 250/50MCG DISKUS IH SCH ×2 (08:43→22:51)
[2016-11-29] MEDS: [UNRECOGNIZED DRUG - OTHER] IH PRN (08:44)
[2016-11-29] MEDS: FLUTICASONE NASAL 120 SPRAYS/16 GM MDI EACHNARE SCH (08:44)
[2016-11-29] MEDS: [UNRECOGNIZED DRUG - OTHER] PO SCH ×2 (08:45→22:51)
[2016-11-29] MEDS: ASPIRIN EC 81 MG TAB PO SCH (08:45)
[2016-11-29] MEDS: CARVEDILOL 3.125 MG TAB PO SCH ×2 (08:47→17:47)
[2016-11-29] MEDS: CHOLECALCIFEROL VIT D3 1,000 UNITS TAB PO SCH (08:47)
[2016-11-29] MEDS: ENOXAPARIN 30 MG/0.3 ML SYR SC SCH ×2 (08:47→20:07)
[2016-11-29] MEDS: FERROUS SULFATE 325 MG TAB PO SCH (08:48)
[2016-11-29] MEDS: FLUoxetine 20 MG CAP PO SCH (08:48)
[2016-11-29] MEDS: GABAPENTIN 100 MG CAP PO SCH ×3 (08:48→22:30)
[2016-11-29] MEDS: LISINOPRIL 10 MG TAB PO SCH (08:49)
[2016-11-29] MEDS: HYDROCHLOROTHIAZIDE 12.5 MG CAP PO SCH (08:49)
[2016-11-29] MEDS: PANTOPRAZOLE SODIUM 40 MG TAB PO SCH (08:50)
[2016-11-29] MEDS: MULTIVITAMINS 1 EACH TAB PO SCH (08:50)
--- NOTE | 2016-11-29 19:14 | SOAPPROG ---
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 * Left hemiparesis and debility status post CVA. Initial functional independence measure 69 on 11/10/2016; improved to 82 on 11/17/2016, and to 88 on . Standby assist for transfers. Ambulated 31 feet with minimal assistance using a walking staff, with considerable improvement since 11/24/2016 ; now covering much larger distances with front wheeled walker. Did 3 stairs with 1 rail and contact guard assist. Independent with upper body dressing. Lower body dressing with contact guard assist/standby assist. Contact guard assist/standby assist for toilet transfer, toileting and shower transfer; needs minimal assist with bathing to access her right armpit. Continue physical and occupational therapies to optimize mobility and activities of daily living. * Cognition at baseline. A dressing higher level functions. Continue speech therapy. * Left ankle swelling and pain. X-rays shows old avulsion fracture on the lateral malleolus. Possibly due to abnormal positioning with standing and ambulating. Will initiate ankle splint per PT. * Acute renal insufficiency. No obstruction on retroperitoneal ultrasound. Little improvement after hydration. Possibly due to vancomycin, versus titration of ABBI inhibitor. Possibly due to AIN/ATN with gradual recovery. ABBI inhibitor held. Renal function stable with creatinine 1.2 and GFR 46 on , 11/22/2016 and a 11/21/2016. * Hypertension. Blood pressure is elevated on carvedilol 3.125 mg BID and lisinopril 20 mg QD. Initiate hydrochlorothiazide 12.5 mg p.o. q.day. Discontinue carvedilol as indication is unclear Continue to monitor. * Anemia. Gradual worsening throughout her stay. Reticulocytes low, B12 normal, but has iron deficiency on labs 11/22/2016. Hemoccult negative x2. Initiated ferrous sulfate iron replacement; will continue for 1 month. Stable * Insomnia and daytime fatigue. Fatigue may be due to history of methamphetamine. Initiate zolpidem 11/17/2016 at 10 mg. Subsequently reduce to 5 mg scheduled and 5 mg p.r.n. with goal to achieve adequate sleep with smallest possible dose. * Septic thrombophlebitis left antecubital fossa. Currently no signs or symptoms of active infection. Continue cefazolin. Further management per Infectious Disease. Chronic/stable conditions: * Nephrolithiasis. Symptoms seem to have resolved. She has likely passed the 4 mm stone which was seen on abdominal CT in the hospital. DC tamsulosin starting 11/23/2016. * Pain at PICC site. Ultrasound was negative for thrombus. * Leukocytosis with white blood cell count 11.2 on 11/08/2016; increased to 13.38 on 11/15/2016; resolved, 11/22/2016. * Urinary frequency/nocturia. She reports this is baseline for her. * Abnormal liver function tests. Possibly due to atorvastatin. Hepatitis profile negative. LFT elevation resolved 11/15/2016. * Asthma/allergies/cough. Contributing to sleep disturbance. Discussed with her lining caser, Dr. Almanza. She was receiving monthly immunotherapy injections for seasonal allergies. She also was on Breo which is equivalent to current Advair, albuterol which she has on a p.r.n. basis, nasal fluticasone which is currently ordered, and an spid-qoo-qaqjxui antihistamine. Improved with addition of cetirizine 11/10/2016. * Dysphagia in the hospital which has improved. Continue speech therapy. Advanced to regular diet with thin liquids. * Secondary prevention of CVA with blood pressure control and lipid control, and aspirin. * GERD. Continue pantoprazole. * DM2. HgbA1c was 7.3 in the hospital. No indication for medication at present. D/C BS checks. Cryptographic Center Specialist to advise patient. * Prophylaxis. Continue enoxaparin 30 mg subcutaneous twice daily until mobility improves. Continue SCDs and BRICE hose. Continue pantoprazole for GI prophylaxis on enoxaparin plus aspirin. Patient and her are both living on disability; they sleep in separate rooms. She has been in the basement but she can move to the main level. Continue discharge date of 12/01/2016. Follow-up: PCP Yesenia Menendez after discharge [phone] Victoria early December [address] Noel Rodrigez for cardiac event monitor after discharge [phone] 11/29/16 19:12 Subjective: No complaints. Walking much better today. Objective: Vital Signs Temp Pulse Resp BP Pulse Ox 36.8 C 79 16 120/70 91 L 11/29/16 08:00 11/29/16 08:47 11/29/16 08:00 11/29/16 17:47 11/29/16 08:00 Laboratory Results 11/29/16 06:25 11/29/16 06:25 11/28/16 11/29/16 11/30/16 05:59 05:59 05:59 Intake Total 1760 2546 1220 Balance 1760 2546 1220 Physical Exam - Physical Exam General Appearance: WD/WN, alert, no apparent distress Respiratory: No respiratory distress, No accessory muscle use Skin: normal color, warm/dry Neuro/Psych: alert, normal mood/affect, oriented x 3, abnormal gait (With front wheeled walker, step through pattern, physical therapist encouraging equal use of right and left upper extremity on front wheeled walker.) ICD10 Worksheet Patient Problems: Problems Problem Status Onset Cerebrovascular accident (CVA) involving right middle cerebral artery territory Acute Left hemiparesis Acute Nephrolithiasis Acute Septic thrombophlebitis of upper extremity Acute - ICD10 Problem Qualifiers (1) Cerebrovascular accident (CVA) involving right middle cerebral artery territory (2) Left hemiparesis (3) Septic thrombophlebitis of upper extremity (4) Nephrolithiasis
[2016-11-29] MEDS: ATORVASTATIN CALCIUM 40 MG TAB PO SCH (20:07)
[2016-11-29] MEDS: traZODone 50 MG TAB PO SCH (20:07)
[2016-11-29] MEDS: CETIRIZINE 10 MG TAB PO SCH (20:07)
[2016-11-29] MEDS: TUSSIN DM PO PRN (20:10)
[2016-11-30] MEDS: TUSSIN DM PO PRN ×2 (04:11→23:17)
[2016-11-30] MEDS: BACLOFEN 10 MG TAB PO PRN (04:15)
[2016-11-30] MEDS: ceFAZolin 2 GM/DEXTROSE 100 ML IV SCH ×2 (05:50→17:14)
[2016-11-30] MEDS: FLUTICASONE/SALMETER 250/50MCG DISKUS IH SCH ×2 (08:22→20:25)
[2016-11-30] MEDS: [UNRECOGNIZED DRUG - OTHER] PO SCH ×2 (08:23→20:25)
[2016-11-30] MEDS: BACLOFEN 10 MG TAB PO SCH ×3 (08:24→20:24)
[2016-11-30] MEDS: CARVEDILOL 3.125 MG TAB PO SCH ×2 (08:24→17:14)
[2016-11-30] MEDS: ASPIRIN EC 81 MG TAB PO SCH (08:24)
[2016-11-30] MEDS: FLUTICASONE NASAL 120 SPRAYS/16 GM MDI EACHNARE SCH (08:25)
[2016-11-30] MEDS: FLUoxetine 20 MG CAP PO SCH (08:25)
[2016-11-30] MEDS: FERROUS SULFATE 325 MG TAB PO SCH (08:25)
[2016-11-30] MEDS: CHOLECALCIFEROL VIT D3 1,000 UNITS TAB PO SCH (08:25)
[2016-11-30] MEDS: GABAPENTIN 100 MG CAP PO SCH ×3 (08:26→20:24)
[2016-11-30] MEDS: HYDROCHLOROTHIAZIDE 12.5 MG CAP PO SCH (08:26)
[2016-11-30] MEDS: LISINOPRIL 10 MG TAB PO SCH (08:27)
[2016-11-30] MEDS: PANTOPRAZOLE SODIUM 40 MG TAB PO SCH (08:28)
[2016-11-30] MEDS: MULTIVITAMINS 1 EACH TAB PO SCH (08:28)
[2016-11-30] MEDS: [UNRECOGNIZED DRUG - OTHER] IH PRN (08:29)
--- NOTE | 2016-11-30 09:44 | SOAPPROG ---
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 Today's update: patient doing well today, continuing to participate in therapies. Family requested that prescriptions go to the pharmacy. A total of 35 minutes was spent on the floor in the care of the patient, the majority of which was spent in counseling and coordination of care regarding discharge planning and coordination and discussion of prognosis with family. Plan for the PICC to come out tomorrow comma after antibiotics, but before discharge. No other changes to her medical plan below. * Left hemiparesis and debility status post CVA. Initial functional independence measure 69 on 11/10/2016; improved to 82 on 11/17/2016, and to 88 on . Standby assist for transfers. Ambulated 31 feet with minimal assistance using a walking staff, with considerable improvement since 11/24/2016 ; now covering much larger distances with front wheeled walker. Did 3 stairs with 1 rail and contact guard assist. Independent with upper body dressing. Lower body dressing with contact guard assist/standby assist. Contact guard assist/standby assist for toilet transfer, toileting and shower transfer; needs minimal assist with bathing to access her right armpit. Continue physical and occupational therapies to optimize mobility and activities of daily living. * Cognition at baseline. A dressing higher level functions. Continue speech therapy. * Left ankle swelling and pain. X-rays shows old avulsion fracture on the lateral malleolus. Possibly due to abnormal positioning with standing and ambulating. Will initiate ankle splint per PT. * Acute renal insufficiency. No obstruction on retroperitoneal ultrasound. Little improvement after hydration. Possibly due to vancomycin, versus titration of ABBI inhibitor. Possibly due to AIN/ATN with gradual recovery. ABBI inhibitor held. Renal function stable with creatinine 1.2 and GFR 46 on , 11/22/2016 and a 11/21/2016. * Hypertension. Blood pressure is elevated on carvedilol 3.125 mg BID and lisinopril 20 mg QD. Initiate hydrochlorothiazide 12.5 mg p.o. q.day. Discontinue carvedilol as indication is unclear Continue to monitor. * Anemia. Gradual worsening throughout her stay. Reticulocytes low, B12 normal, but has iron deficiency on labs 11/22/2016. Hemoccult negative x2. Initiated ferrous sulfate iron replacement; will continue for 1 month. Stable * Insomnia and daytime fatigue. Fatigue may be due to history of methamphetamine. Initiate zolpidem 11/17/2016 at 10 mg. Subsequently reduce to 5 mg scheduled and 5 mg p.r.n. with goal to achieve adequate sleep with smallest possible dose. * Septic thrombophlebitis left antecubital fossa. Currently no signs or symptoms of active infection. Continue cefazolin. Further management per Infectious Disease. Chronic/stable conditions: * Nephrolithiasis. Symptoms seem to have resolved. She has likely passed the 4 mm stone which was seen on abdominal CT in the hospital. DC tamsulosin starting 11/23/2016. * Pain at PICC site. Ultrasound was negative for thrombus. * Leukocytosis with white blood cell count 11.2 on 11/08/2016; increased to 13.38 on 11/15/2016; resolved, 11/22/2016. * Urinary frequency/nocturia. She reports this is baseline for her. * Abnormal liver function tests. Possibly due to atorvastatin. Hepatitis profile negative. LFT elevation resolved 11/15/2016. * Asthma/allergies/cough. Contributing to sleep disturbance. Discussed with her physical education aide, Dr. Almanza. She was receiving monthly immunotherapy injections for seasonal allergies. She also was on Breo which is equivalent to current Advair, albuterol which she has on a p.r.n. basis, nasal fluticasone which is currently ordered, and an oano-rji-qzybhtp antihistamine. Improved with addition of cetirizine 11/10/2016. * Dysphagia in the hospital which has improved. Continue speech therapy. Advanced to regular diet with thin liquids. * Secondary prevention of CVA with blood pressure control and lipid control, and aspirin. * GERD. Continue pantoprazole. * DM2. HgbA1c was 7.3 in the hospital. No indication for medication at present. D/C BS checks. Ichthyology Teacher to advise patient. * Prophylaxis. Continue enoxaparin 30 mg subcutaneous twice daily until mobility improves. Continue SCDs and BRICE hose. Continue pantoprazole for GI prophylaxis on enoxaparin plus aspirin. Patient and her are both living on disability; they sleep in separate rooms. She has been in the basement but she can move to the main level. Continue discharge date of 12/01/2016. Follow-up: PCP Yesenia Menendez after discharge [phone] Victoria early December [address] Noel Rodrigez for cardiac event monitor after discharge [phone] 11/30/16 09:48 11/30/16 12:17 Subjective: Chief complaint: Neurological stability No acute events overnight. Patient endorses that things are going well, therapies are going great. Her also endorses this. Her mood is good, she is not having significant pain or spasticity, currently on stable medication regimen. Also, she is sleeping well, not waking up a sad or upset. She is requesting continuation of current medications without changes. No new shortness of breath or chest pain, no new numbness, tingling, or weakness. Objective: Vital Signs Temp Pulse Resp BP Pulse Ox 36.7 C 92 16 120/78 92 11/30/16 08:00 11/30/16 08:24 11/30/16 08:00 11/30/16 08:26 11/30/16 08:00 Laboratory Results 11/29/16 06:25 11/29/16 06:25 11/29/16 11/30/16 12/01/16 05:59 05:59 05:59 Intake Total 2546 1720 530 Balance 2546 1720 530 Physical Exam - Physical Exam General Appearance: WD/WN, alert, No no apparent distress EENT: No scleral icterus (R), No scleral icterus (L) Respiratory: No respiratory distress, No accessory muscle use Cardiac/Chest: normal peripheral pulses, regular rate, rhythm Skin: normal color, warm/dry, No cyanosis Extremities: pedal edema, swelling Neuro/Psych: alert, normal mood/affect ICD10 Worksheet Patient Problems: Problems Problem Status Onset Cerebrovascular accident (CVA) involving right middle cerebral artery territory Acute Left hemiparesis Acute Nephrolithiasis Acute Septic thrombophlebitis of upper extremity Acute
[2016-11-30] MEDS: ENOXAPARIN 30 MG/0.3 ML SYR SC SCH ×2 (10:09→20:22)
--- NOTE | 2016-11-30 12:06 | PDOREHIP ---
Admission [facility] - Admission - 3 Day Assessment Period Admission Date/Day 1: 11/07/16 Day 2: 11/08/16 Day 3: 11/09/16 Discharge [facility] - Discharge - 3 Day Assessment Period 2 Days Prior to Anticipated Discharge Date: 11/29/16 1 Day Prior to Anticipated Discharge Date: 11/30/16 Anticipated Discharge Date: 12/01/16 - Discharge Skin Conditions Unhealed Pressure Ulcer (1 or more/Stage 1 or >)-Discharge: 0. No
[2016-11-30 19:53] VITALS: RESP 18; TEMP 98.5
[2016-11-30] MEDS: traZODone 50 MG TAB PO SCH (20:23)
[2016-11-30] MEDS: ATORVASTATIN CALCIUM 40 MG TAB PO SCH (20:23)
[2016-11-30] MEDS: CETIRIZINE 10 MG TAB PO SCH (20:26)
[2016-12-01] MEDS: BACLOFEN 10 MG TAB PO PRN (04:45)
[2016-12-01] MEDS: [UNRECOGNIZED DRUG - OTHER] IH PRN (08:43)
[2016-12-01] MEDS: ENOXAPARIN 30 MG/0.3 ML SYR SC SCH (08:44)
[2016-12-01] MEDS: CARVEDILOL 3.125 MG TAB PO SCH (09:05)
[2016-12-01] MEDS: FLUTICASONE/SALMETER 250/50MCG DISKUS IH SCH (09:06)
[2016-12-01] MEDS: CHOLECALCIFEROL VIT D3 1,000 UNITS TAB PO SCH (09:07)
[2016-12-01] MEDS: BACLOFEN 10 MG TAB PO SCH (09:07)
[2016-12-01] MEDS: ASPIRIN EC 81 MG TAB PO SCH (09:07)
[2016-12-01] MEDS: [UNRECOGNIZED DRUG - OTHER] PO SCH (09:07)
[2016-12-01] MEDS: FLUoxetine 20 MG CAP PO SCH (09:08)
[2016-12-01] MEDS: FERROUS SULFATE 325 MG TAB PO SCH (09:08)
[2016-12-01] MEDS: HYDROCHLOROTHIAZIDE 12.5 MG CAP PO SCH (09:08)
[2016-12-01] MEDS: FLUTICASONE NASAL 120 SPRAYS/16 GM MDI EACHNARE SCH (09:08)
[2016-12-01] MEDS: GABAPENTIN 100 MG CAP PO SCH (09:08)
[2016-12-01] MEDS: LISINOPRIL 10 MG TAB PO SCH (09:09)
[2016-12-01] MEDS: PANTOPRAZOLE SODIUM 40 MG TAB PO SCH (09:09)
[2016-12-01] MEDS: MULTIVITAMINS 1 EACH TAB PO SCH (09:09)
[2016-12-01 09:15] VITALS: BP 140/84; PULSE 84
[2016-12-01 10:44] VITALS: O2SAT 95
--- NOTE | 2016-12-01 14:42 | GDS ---
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 OTHER DISCHARGE DIAGNOSES: 1. Septic thrombophlebitis. 2. Chronic renal insufficiency. 3. Hypertension. 4. Iron deficiency anemia. 5. Diabetes mellitus type 2. CONSULTATIONS: There was consultation with the Infectious Disease Service. PROCEDURES: There were none. COMPLICATIONS: There were none. HISTORY AND HOSPITAL COURSE: This patient came to [facility] inpatient rehabilitation from [facility]. She had been admitted there on 10/30/2016 with acute onset of slurred speech, and left upper and lower extremity weakness. She was diagnosed with a right middle cerebral artery infarction. She was treated with tPA thrombolysis and she had improvement in speech and in the left upper and lower extremity strength, more so in the left lower extremity. There was no hemorrhagic conversion. She did well in rehabilitation, though her progress was initially slow. Her initial functional independence measure was 69 on 11/10/2016, which is consistent with needing assistance in most activities of daily living and with mobility. She improved to 82 on 11/17/2016, and 88 on 11/24/2016. Functional live [place] measure in the 80s is consistent with assisted living level of care. She was ambulating as far as 31 feet with minimal assistance using a walking staff on 11/24, and had considerable improvement; by the day of discharge she was ambulating as far as 190 feet with standby assist to minimal assist for right upper extremity control using a front-wheeled walker. She was able to climb and descend 6 stairs with 1 rail and standby assist. Her transfers were done with modified independence using a front-wheeled walker. Regarding activities of daily living, she was independent with self feeding. Grooming and hygiene were done with modified independence. She was able to dress with modified independence needing some assistance only with her ankle brace. Her was trained for assistance in bathing which she was able to do with setup and supervision, with standby assist for transfer to a tub- shower. She had renal insufficiency. This was considered possibly due to vancomycin and did improve after discontinuation of vancomycin. Her renal function eventually stabilized with a creatinine of 1.2 and a GFR of 46. Regarding hypertension, she was treated with carvedilol 3.125 mg b.i.d. when she was admitted, as well as lisinopril. Lisinopril was titrated to 20 and then 30 mg with inadequate response. Lisinopril was subsequently tapered to 20 mg daily. Hydrochlorothiazide was initiated at 12.5 mg daily, and she had good blood pressure control subsequently. She had anemia which gradually worsened through her stay. She had low reticulocytosis and an iron deficiency on labs 11/22/2016. She was begun on iron supplement. Stool Hemoccult was negative. Iron supplement should continue for 1 month through December 22, 2016. Insomnia eventually responded to trazodone and with improved sleep she was able to improve her function. She had septic thrombophlebitis and had been treated with vancomycin. Vancomycin was discontinued due to acute renal insufficiency. She had consultation with the infectious disease service and was changed to cefazolin which she tolerated well, and had no further signs or symptoms of septic thrombophlebitis. The last day of antibiotics was 11/30/2016. During her initial hospitalization, she was diagnosed with diabetes mellitus type 2. Her hemoglobin A1c was 7.3 in the hospital. No medications were begun. She had consultation with the dietitian. Other laboratories and studies and studies during her stay: CBC on 11/29/2016 showed a hemoglobin of 10.3, and a hematocrit of 31.4, which was a very slight decrease from 11/22/2016 when hemoglobin was 10.5 and hematocrit was 32.1. Urinalysis was normal on 11/12/2016. PHYSICAL EXAMINATION: VITAL SIGNS: On the day of discharge vitals, blood pressure is 140/84, but has mostly been the 120s to 130 over 70s to 88 since addition of hydrochlorothiazide. Pulse was 84 respiratory rate 18, oxygen saturation 95% on room air. Temperature 36.9 degrees centigrade. GENERAL: This is a well-nourished, well-developed woman sitting on the edge of the bed eating lunch at a bedside table. Cooperative and in no acute distress. HEART: There is regular rate and rhythm with no murmurs, rubs, or gallops. LUNGS: Clear to auscultation bilaterally. ABDOMEN: Soft, nontender, nondistended with normoactive bowel sounds. EXTREMITIES: There is no cyanosis, clubbing, or edema. NEUROLOGIC: She is alert and oriented x3. Cranial nerves 2-12 are grossly intact. She has left upper extremity weakness. Her gait is overall normal using a left AFO and a front-wheeled walker. CONDITION UPON DISCHARGE: Good. ACTIVITY: Ad james, but she needs supervision or standby assist with several aspects of mobility and activities of daily living, as described above. DIET: ADA 1800 kilocalories per day. DATE OF NEXT APPOINTMENT: She has followup with her primary care provider, and Dr. Nascimento on 12/03/2016. She will see neurologist, Dr. Victoria, with the Neurology Office to contact her to set up the appointment. She will see radio engineering teacher, Dr. Rodrigez, on 12/15/2016 for the placement of a cardiac event monitor, as the etiology of her stroke was not fully understood during her hospitalization. MEDICATIONS AT DISCHARGE: 1. Acetaminophen 650 mg p.o. q.4 hours p.r.n. 2. Aspirin 81 mg p.o. daily. 3. Atorvastatin 40 mg p.o. at bedtime. 4. Baclofen 10 mg t.i.d. p.r.n. and 10 mg t.i.d. scheduled. 5. Carvedilol 3.125 mg p.o. b.i.d. 6. Cetirizine 10 mg p.o. q.h.s. 7. Cholecalciferol 1000 units p.o. daily. 8. Ferrous sulfate 325 mg p.o. daily to 12/19/2016. 9. Fluoxetine 20 mg p.o. daily. 10. Fluticasone 1 spray each naris. 11. Gabapentin 100 mg p.o. t.i.d. 12. Hydrochlorothiazide 12.5 mg p.o. daily. 13. Lisinopril 20 mg p.o. daily. 14. Albuterol metered-dose inhaler 2 puffs q.4 hours p.r.n. 15. Fluticasone/salmeterol 1 puff b.i.d. 16. Trazodone 25 mg p.o. q.h.s. ISSUES TO BE ADDRESSED AT FOLLOWUP: 1. Functional status, regarding mobility and activities of daily living, she will continue physical and occupational therapies, and can follow up with her primary care provider, as well as Neurology. 2. Hypertension can be evaluated further per primary care, as well as chronic renal insufficiency and anemia. 3. Cryptogenic stroke. She should have a followup heart monitor placed to evaluate for occult atrial fibrillation. /[id number]/[facility] [place]
== END 2016-12-01 13:14 | disposition home health service (06) | DRG 57 ==
LOC: BREH 11-07 14:18
PROVIDERS: ADMIT Physical Medicine & Rehabilitation; ATTEND Internal Medicine
DX: I69.354 Hemiplegia and hemiparesis following cerebral infarction affecting left non-dominant side (principal); I69.391 Dysphagia following cerebral infarction; I69.310 Attention and concentration deficit following cerebral infarction; N14.2 Nephropathy induced by unspecified drug, medicament or biological substance; T36.8X5A Adverse effect of other systemic antibiotics, initial encounter; T80.1XXA Vascular complications following infusion, transfusion and therapeutic injection, initial encounter; T80.22XA Acute infection following transfusion, infusion, or injection of blood and blood products, initial encounter; I80.8 Phlebitis and thrombophlebitis of other sites; N20.0 Calculus of kidney; I10 Essential (primary) hypertension; G47.00 Insomnia, unspecified; E11.9 Type 2 diabetes mellitus without complications; D50.9 Iron deficiency anemia, unspecified; K21.9 Gastro-esophageal reflux disease without esophagitis; E78.00 Pure hypercholesterolemia, unspecified; J45.909 Unspecified asthma, uncomplicated; Z87.891 Personal history of nicotine dependence
CPT/HCPCS: 82607-90; 92507-GN; 92522-GN; 92526-GN; 92610-GN; 97032-GO; 97110-GO; 97110-GP; 97112-GO; 97112-GP; 97116-GP; 97140-GO; 97140-GP; 97162-GP; 97166-GO; 97530-GO; 97530-GP; 97535-GO; 97542-GP; G0472; J0690; J1650; J2997; J3370